=== PATIENT | male | born 1930 | race Caucasian/White ===

== ENCOUNTER 2016-07-23 22:41 | Inpatient (IN) | payer OTHER ==
[~2016-07-23] VITALS: Ht 188 cm; Wt 76.7 kg
[~2016-07-23 22:41] MED LIST: AMOX-CLAV 875-1 EACH PO; APA PO; AUGMENTIN 875-1 EACH PO; CARAFATE 1GM1000 MG PO; CIPRO 500MG TA500 MG PO; DOCUSATE SODIU100 MG PO; DULCOLAX10 MG PR; GLIPIZIDE10 MG PO; HYDROCODONE PO; LEADER MELATONIN5 MG PO; LISINOPRIL10 MG PO; LYRICA150 MG PO; METFORMIN HCL500 M3 PO; MIRALAX17 GM PO; PERCOCET 500 MG1 TAB PO; PROTONIX 40MG T40 MG PO; PROTONIX40 MG PO; SENNA CON/DOCUS1 TAB PO; TRAMADOL HCL50 M1 PO; TRIAMCINOLONE A15 G3 TOP; TYLENOL EXTRA500 M2 PO; TYLENOL325 M1 PO; TYLENOL500 MG PO; ULTRAM(MONOGRAP50 MG PO; VICODIN7.5-300 PO; VITAB121000 PO; VITAMIN D31000 UNI2 PO; [UNRECOGNIZED DRUG - OTHER] PO
--- NOTE | 2016-07-23 22:43 | ED AMS/SEIZURE/WEAK/DIZZY ---
History of Present Illness General Chief Complaint: Dizziness Stated Complaint: BIBA FOR WEAKNESS AND DIZZINESS Source: patient, old records, EMS Exam Limitations: clinical condition Vital Signs & Intake/Output Vital Signs & Intake/Output Vital Signs Date Time Temp Pulse Resp B/P B/P Pulse O2 O2 Flow FiO2 Mean Ox Delivery Rate 07/24 1134 97.5 67 17 138/64 98 Room Air 07/24 0632 96.2 60 16 151/71 98 Room Air 07/24 0112 96.7 74 20 170/77 98 Room Air 07/24 0111 Room Air 07/23 2250 87 16 146/74 96 Room Air Room Air Allergies Coded Allergies: NO KNOWN ALLERGIES (10/27/14) Reconcile Medications Cyanocobalamin (Vitamin B-12) 1,000 MCG TABLET 1 TAB PO DAILY SUPPLEMENT ( Reported) Metformin HCl 500 MG TABLET 1 TAB PO BID DM (Reported) Pantoprazole Sodium 40 MG TABLET.DR 1 TAB PO BID GI (Reported) Tramadol HCl 50 MG TABLET 1 TAB PO Q6P PRN PAIN (Reported) Triage Nurses Notes Reviewed? yes Onset: Gradual Duration: hour(s): Timing: recent history Injury Environment: home Severity: mild, moderate Modifying Factors: Improves With: rest. Associated Symptoms: weakness HPI: 86 yo gentleman, h/o cva, from home presents with weakness and dizziness since 3-4 pm this evening. He also notes increased fatigue, mild bilateral lower extremity discomfort, pain in both shoulders. His dizziness is not worse with head movement. He had no focal weakness, no dysarthria, no dysphagia. He states he has had a normal oral intake. (KOBE SMITH,PONCHO Pizano) Past History Travel History Traveled to [place] past 21 day No Medical History Any Pertinent Medical History? 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 No (KOBE SMITH,PONCHO Pizano) Review of Systems Review of Systems Constitutional: Reports: no symptoms. EENTM: Reports: no symptoms. Respiratory: Reports: no symptoms. Cardiovascular: Reports: no symptoms. GI: Reports: no symptoms. Genitourinary: Reports: no symptoms. Musculoskeletal: Reports: no symptoms. Skin: Reports: no symptoms. Neurological/Psychological: Reports: no symptoms. Hematologic/Endocrine: Reports: no symptoms. Immunologic/Allergic: Reports: no symptoms. All Other Systems: Reviewed and Negative (KOBE SMITH,PONCHO Pizano) Physical Exam Physical Exam General Appearance: well developed/nourished, no apparent distress Head: atraumatic, normal appearance Eyes: Bilateral: normal appearance, PERRL, EOMI. Ears, Nose, Throat: normal pharynx, normal ENT inspection Neck: normal inspection, supple, full range of motion Respiratory: normal breath sounds, chest non-tender, no respiratory distress, quiet respiration, lungs clear Cardiovascular: regular rate/rhythm Gastrointestinal: normal bowel sounds, soft, non-tender Back: normal inspection Extremities: normal range of motion Neurologic/Psych: no motor/sensory deficits, awake, alert, oriented x 3 Skin: intact, normal color, warm/dry Core Measures ACS in differential dx? No CVA/TIA Diagnosis: No Severe Sepsis Present: No Septic Shock Present: No (KOBE SMITH,PONCHO Pizano) Progress Differential Diagnosis: cva, tia, dehydration, uti, vs other. Plan of Care: Orders Procedure Date/time Status CBC WITHOUT DIFFERENTIAL 07/25 0600 Active Consistent Carbohydrate 3 07/24 D Active Regular Diet 07/24 B Complete Vital Signs 07/24 1140 Active Teach/Educate 07/24 1140 Active Pain Treatment and Response 07/24 1140 Active Nutritional Intake, Monitor 07/24 1140 Active Isolation 07/24 1140 Active Intake & Output 07/24 1140 Active Patient Care Conference 07/24 1140 Active Activity/Ambulation 07/24 1140 Active PT Evaluate & Treat 07/24 1123 Active FingerStick- Glucose 07/24 1123 Active CULTURE,URINE 07/24 1123 Active Pathway - chart 07/24 1014 Active House Staff 07/24 1014 Active Patient Data 07/24 1014 Active Code Status 07/24 1014 Active Patient Data 05/06 0937 Active OXYGEN SETUP (GEN) 07/25 923 Active Saline Lock 07/25 923 Active Admit to inpatient 07/25 923 Active Vital Signs 07/25 923 Active Activity/Ambulation 07/25 923 Active BLOOD CULTURE 07/25 923 Active Code Status 07/25 923 Complete Intake & Output 07/24 0635 Active PT Evaluate & Treat 07/24 257 Active CASE MANAGEMENT CONSULT 07/24 025 Active Straight Cath 07/24 012 Active Theraputic Activities 15 Min 07/24 UNK Complete PT EVAL MOD COMPLEX 30 MIN 07/24 UNK Complete VTE Mechanical Prophylaxis 07/24 UNK Active URINALYSIS 07/23 224 Complete TROPONIN LEVEL 07/23 224 Complete PARTIAL THROMBOPLASTIN TIME 07/23 224 Complete PROTHROMBIN TIME 07/23 2244 Complete COMPREHENSIVE METABOLIC PANEL 07/23 2244 Complete CBC WITHOUT DIFFERENTIAL 07/23 224 Complete B-TYPE NATRIURETIC PEP (BNP) 07/23 224 Complete EKG 07/23 2244 Active Current Medications Sig/Alverto Start time Last Medication Dose Stop Time Status Admin Azithromycin 500 MG DAILY 07/25 1000 AC (Zithromax) Sodium Chloride 250 ML (Normal Saline 0.9%) Ceftriaxone Sodium 1,000 MG DAILY 07/25 1000 AC (Rocephin) Insulin Aspart 0 TIDAC 07/24 1200 AC (NovoLOG) Sodium Chloride 1,000 ML Q13H 07/24 1130 AC 07/24 (Normal Saline 0.9%) 07/25 0029 1130 Tramadol HCl 50 MG Q6P PRN 07/24 1030 UNVr (Ultram) Omeprazole 40 MG DAILY AC 07/24 1021 AC 07/24 (Prilosec) 1130 Cyanocobalamin 1,000 MCG DAILY 07/24 1019 AC 07/24 (Vitamin B12) 1130 Acetaminophen 325 MG Q6 PRN 07/24 1015 AC (Tylenol) Oxycodone HCl 10 MG Q6 PRN 07/24 1015 AC (Roxicodone) Laboratory Tests 07/24/16 0128: Urinalysis MOD H, Urine Color YEL, Urine Clarity CLDY H, Urine pH 8.5 H, Ur Specific [place] 1.010, Urine Protein 30 H, Urine Ketones NEG, Urine Nitrite NEG, Urine Bilirubin NEG, Urine Urobilinogen 1.0, Ur Leukocyte Esterase LARGE H , Ur Microscopic SEDIMENT EXAMINED, Urine RBC 3-5, Urine WBC 3-5 H, Urine Crystals 1+ TRIP PHOS H, Urine Bacteria MANY H, Urine Hemoglobin SMALL H, Urine Glucose NEG 07/23/16 2330: Anion Gap 9, Estimated GFR > 60, BUN/Creatinine Ratio 28.0 H, Glucose 144 H, Calcium 8.9, Total Bilirubin 0.5, AST 20, ALT 34, Alkaline Phosphatase 86, Troponin I < 0.01, Uqq-V-Luulbjzewos Pept 768 H, Total Protein 6.5, Albumin 3.5 , Globulin 3.0, Albumin/Globulin Ratio 1.2, PT 11.9, INR 1.13, APTT 40 H, CBC w Diff NO MAN DIFF REQ, RBC 3.70 L, MCV 95.8 H, MCH 32.2 H, RDW 12.9, MPV 8.7, Gran % 80.6 H, Lymphocytes % 13.2 L, Monocytes % 5.1, Eosinophils % 0.5, Basophils % 0.6, Absolute Granulocytes 8.2 H, Absolute Lymphocytes 1.3, Absolute Monocytes 0.5, Absolute Eosinophils 0, Absolute Basophils 0.1, PUBS MCHC 33.6 Microbiology 07/24 1123 URINE ROUT: Urine Culture - ORD 07/24 1040 BLOOD: Blood Culture - RECD 07/24 1030 BLOOD: Blood Culture - RECD Diagnostic Imaging: Viewed by Me: Radiology Read, CT Scan. Discussed w/RAD: Radiology Read, CT Scan. Radiology Impression: HEAD CT... NO ACUTE DISEASE CXR Impression: "MINIMAL LEFT BASILAR OPACITY FAVORING ATELECTASIS" Initial ED EKG: normal axis, normal intervals, normal p-waves, normal QRS complex, normal sinus rhythm Hand-Off Endorsed To: KENDAL BARGER MD Endorsed Time: 0700 Pending: consult Comments: PATIENT: ERIN MALDONADO PRESENT AGE: 86 PATIENT ACCOUNT NO: [id number] : 32 LOCATION: [facility] ORDERING PHYSICIAN: PONCHO BULLOCK MD SERVICE DATE: 07/23/16 EXAM TYPE: RAD - XRY-PORTABLE CHEST XRAY EXAMINATION: XR PORTABLE CHEST CLINICAL INFORMATION: Cough COMPARISON: 03/11/2016 TECHNIQUE: Portable frontal view of the chest was obtained. FINDINGS: Lung volumes are symmetric. There is minimal opacity at the left base favoring atelectasis. No additional consolidation is seen. No evidence of pneumothorax, significant pleural effusion, or pulmonary edema. Cardiac size is within normal limits. Calcification is present at the aortic arch. No acute osseous findings are seen. IMPRESSION: Minimal left basilar opacity favoring atelectasis. DICTATED BY: RUFUS BENAVIDES MD DATE/TIME DICTATED:07/23/162319 BLENDING MACHINE OPERATOR:CARMEN DATE/TIME TRANSCRIBED:07/23/162319 CONFIDENTIAL, DO NOT COPY WITHOUT APPROPRIATE AUTHORIZATION. <Electronically signed in Other Vendor System> SIGNED BY: RUFUS BENAVIDES MD 07/23/162323 PATIENT: ERIN MALDONADO PRESENT AGE: 86 PATIENT ACCOUNT NO: [id number] : 32 LOCATION: [facility] ORDERING PHYSICIAN: PONCHO BULLOCK MD SERVICE DATE: 07/23/16 EXAM TYPE: CAT - CT HEAD WO IV CONTRAST EXAMINATION: CT HEAD WITHOUT CONTRAST CLINICAL INFORMATION: Dizziness. COMPARISON: CT head 07/29/2015 TECHNIQUE: Contiguous axial imaging was performed from the skull base to vertex without intravenous administration of contrast. DLP: 1056.68 mGy-cm FINDINGS: There is no evidence of acute intracranial hemorrhage or territorial infarction. No abnormal mass effect or midline shift is seen. Schmidt to white matter differentiation is well preserved. No extra-axial fluid collections are identified. There is atrophy with prominence of the ventricles and the sulci and hypodensity of the periventricular white matter due to chronic small vessel ischemic disease. There is vascular calcifications of the internal carotid arteries bilaterally. The osseous structures and soft tissues are normal. The mastoid air cells and visualized portions of the paranasal sinuses are well aerated. IMPRESSION: No acute intracranial pathology. DICTATED BY: LASHA ADORNO MD DATE/TIME DICTATED:07/23/162316 BLENDING MACHINE OPERATOR:CARMEN DATE/TIME TRANSCRIBED:07/23/162316 CONFIDENTIAL, DO NOT COPY WITHOUT APPROPRIATE AUTHORIZATION. <Electronically signed in Other Vendor System> SIGNED BY: LASHA ADORNO MD 07/23/162321 (KOBE SMITH,PONCHO Pizano) Comments: Poor mobility requiring assist of 2 with development of decubitus ulcers. (CHARBEL SMITH,KENDAL) Departure Departure Disposition: STILL A PATIENT Condition: Stable Referrals: HARLEY SMITH,YANET Serna (PCP/Family) Departure Forms: Customer Survey General Discharge Information Comments 07/24/16, 2:50am... discussed with dr. smart... pt to be held until the AM for PT eval and case management. (KOBE SMITH,PONCHO Pizano) Departure Clinical Impression Primary Impression: Pneumonia Qualifiers: Pneumonia type: due to unspecified organism Laterality: unspecified laterality Lung location: unspecified part of lung Qualified Code: J18.9 - Pneumonia, unspecified organism Secondary Impressions: Dizziness UTI (urinary tract infection) Qualifiers: Urinary tract infection type: site unspecified Hematuria presence: without hematuria Qualified Code: N39.0 - Urinary tract infection, site not specified Admission Note Spoke With: CHRISTEN GATES MD Documentation of Exam: Documentation of any treatments & extenuating circumstances including Concerns Regarding Discharge (functional status, medication knowledge or non-compliance, living conditions, etc.) that warrant an admission rather than observation: IV antibiotics physical therapy wound evaluation medication adjustment continuing care discharge planning (KENDAL BARGER MD)
--- NOTE | 2016-07-23 22:45 | NUR ---
PT BIBA FROM HOME FOR INCREASING WEAKNESS AND BILATERAL SHOUDLER AND LEG PAIN. PT HAS HAD RECENT UTI'S. PT DENIES FEVERS. DENIES ABD PAIN. HE IS ALERT AND ORIENTED BUT SLOW TO RESPOND. AWAITING FAMILY TO ARRIVE FOR BASELINE MENTAL STATUS
--- NOTE | 2016-07-23 22:51 | NUR ---
HIGINIO MOORE MD
[2016-07-23] MEDS ORDERED: PANTOPRAZOLE SO40 M1 PO (22:56)
[2016-07-23] MEDS ORDERED: TRAMADOL HCL50 M1 PO (22:57)
[2016-07-23] MEDS ORDERED: VITAMIN B-121000 MC3 PO (22:58)
--- NOTE | 2016-07-23 22:59 | NUR ---
PATIENT TRANS TO CT SCAN VIA STRETCHER
--- NOTE | 2016-07-23 23:22 | CT SCAN REPORT ---
EXAMINATION: CT HEAD WITHOUT CONTRAST CLINICAL INFORMATION: Dizziness. COMPARISON: CT head 07/29/2015 TECHNIQUE: Contiguous axial imaging was performed from the skull base to vertex without intravenous administration of contrast. DLP: 1056.68 mGy-cm FINDINGS: There is no evidence of acute intracranial hemorrhage or territorial infarction. No abnormal mass effect or midline shift is seen. Schmidt to white matter differentiation is well preserved. No extra-axial fluid collections are identified. There is atrophy with prominence of the ventricles and the sulci and hypodensity of the periventricular white matter due to chronic small vessel ischemic disease. There is vascular calcifications of the internal carotid arteries bilaterally. The osseous structures and soft tissues are normal. The mastoid air cells and visualized portions of the paranasal sinuses are well aerated. IMPRESSION: No acute intracranial pathology.
--- NOTE | 2016-07-23 23:24 | RADIOLOGY REPORT ---
EXAMINATION: XR PORTABLE CHEST CLINICAL INFORMATION: Cough COMPARISON: 03/11/2016 TECHNIQUE: Portable frontal view of the chest was obtained. FINDINGS: Lung volumes are symmetric. There is minimal opacity at the left base favoring atelectasis. No additional consolidation is seen. No evidence of pneumothorax, significant pleural effusion, or pulmonary edema. Cardiac size is within normal limits. Calcification is present at the aortic arch. No acute osseous findings are seen. IMPRESSION: Minimal left basilar opacity favoring atelectasis.
--- NOTE | 2016-07-23 23:30 | NUR ---
ASSUMED PRIMARY CARE OF PT. PT CHANGED INTO GOWN. PT OFFERS NO COMPLAINTS OTHER THAN "I AM TOO WEAK TO WALK." AWAKE/ALERT WITH EASY WOB.
--- NOTE | 2016-07-23 23:40 | NUR ---
RETURNED FROM CT IV MED LOCK EST RIGHT AC 20 B/W OBTAINED SENT EKG BEING PREFORMED
[2016-07-23 23:47] LABS: ABSOLUTE BASOPHIL COUNT 0.1 /CUMM (0.0-0.2); ABSOLUTE EOSINOPHIL COUNT 0 /CUMM (0.0-0.7); ABSOLUTE GRANULOCYTE CT 8.2 /CUMM (1.4-6.5); ABSOLUTE LYMPH COUNT 1.3 /CUMM (1.2-3.4); ABSOLUTE MONOCYTE COUNT 0.5 /CUMM (0.10-0.60); BASOPHIL % 0.6 % (0.0-2.0); EOSINOPHIL % 0.5 % (0-5); GRANULOCYTE % 80.6 % (42.2-75.2); HEMATOCRIT 35.4 % (42-52); MEAN CORPUSCULAR HGB 32.2 PG (27.0-31.0); MEAN CORPUSCULAR HGB CONC 33.6 G/DL (33.0-37.0); MEAN CORPUSCULAR VOLUME 95.8 FL (80.0-94.0); MEAN PLATELET VOLUME 8.7 FL (7.4-10.4); PLATELET COUNT 171 /CUMM (130-400); RBC DISTRIBUTION WIDTH 12.9 % (11.5-14.5); WHITE BLOOD CELL COUNT 10.2 /CUMM (4.8-10.8)
--- NOTE | 2016-07-23 23:50 | NUR ---
EKG DONE AND SHOWN TO DR. BULLOCK.
[2016-07-23 23:52] LABS: PT 11.9 SEC (9.4-12.5); PTT 40 SEC (25-37)
--- NOTE | 2016-07-24 01:10 | NUR ---
PT COMPLAINING OF 7/10 BACK PAIN X2 HOURS. REQUESTING SOMETHING FOR PAIN. DENIES DIZZINESS AT THIS TIME. ALSO REPORTS INTERMITTENT BILATERAL LOWER EXT PAIN AND BILATERAL SHOULDER PAIN.
--- NOTE | 2016-07-24 01:31 | NUR ---
URINE TRIO SENT
--- NOTE | 2016-07-24 02:18 | NUR ---
PT REPORTS MINIMAL RELIEF FROM TYLENOL. REQUESTING TRAMADOL.
--- NOTE | 2016-07-24 02:34 | NUR ---
UPDATED POC: PT TO BE EVAL'D BY PT IN AM
--- NOTE | 2016-07-24 03:14 | NUR ---
RESTING COMFROTABLY WITH EYES CLOSED, EVEN NONLABORED RESPIRATIONS NOTED
--- NOTE | 2016-07-24 04:09 | NUR ---
cont to sleep soundly with easy wob
--- NOTE | 2016-07-24 06:32 | NUR ---
AWAKENED FOR VITAL SIGNS. VSS. REPORTS 6/10 BACK PAIN. BREAKFAST TRAY ORDERED. PT REQUESTING PANCAKES WITH OATMEAL AND BLUEBERRIES WITH RAISINS.
--- NOTE | 2016-07-24 07:13 | NUR ---
RECEIVED REPORT ON PT AND NOTED BEEN GIVEN INCONTINENT AMD MOTED TO HAVE VERY DRY SPINE WHICH IS FLAKY AND ALSO 2 SMALL OPEN SPOTS HIS BILT BUTTOCKS. PT DENIES ANY COMPLAINTS AND MEAL TRAY OFFERED
--- NOTE | 2016-07-24 07:43 | NUR ---
PT AT BEDSIDE TO EVAL PT
--- NOTE | 2016-07-24 07:50 | NUR ---
PT EVALUATED BY GER FROM [facility] AND SHE ADVISED THAT PT IS AT BASELINE AND WILL NOT REQUIRE SKILLED PHYSICAL THERAPY AT THIS TIME SECONDARY TO BASELINE STATUS. MD BARGER UPDATED OF INFORMATION
--- NOTE | 2016-07-24 08:50 | NUR ---
CASE MANAGEMENT PAISHANNAN
--- NOTE | 2016-07-24 10:41 | NUR ---
BED ASSIGGNMENT 230-02
--- NOTE | 2016-07-24 10:49 | NUR ---
HOUSE STAFF EVALUATED PT AND IV ROCEPHIN STARTED
--- NOTE | 2016-07-24 11:07 | History & Physical ---
JACKIE PASTOR 07/24/16 1050: General Information and HPI MD Statement: I have seen and personally examined ERIN MALDONADO and documented this H&P. The patient is a 86 year old M who presented with a patient stated chief complaint of [WEAKNESS AND BODYACHE]. Source of Information: patient, old records Exam Limitations: no limitations History of Present Illness: Patient is an 86-year-old male with past medical history of CVA in 2000, dementia, spinal stenosis, borderline DM, hx of upper GI bleed secondary to esophageal ulceration (February 2014), UTI, constipation, who came to the ED due to worsening weakness and fatigue since 2 days ago. Patient states that for the past 2 days he has been feeling very weak and lethargic. He has been having a lot of pain in his back and his limbs. Reports having dysuria, but no urgency or increased frequency. Admits to having foul- smelling urine. Denied any fevers, chills, decreased appetite, chest pain, shortness of breath, nausea, vomiting, hematuria, BRBPR, diarrhea or constipation. No recent sick contacts, no recent travel. He was admitted with similar complaints in February 2016 and was found to have UTI growing Escherichia coli and was treated with ceftriaxone. At baseline, patient lives with and has a nursing service director 5 hours per day for 7 days. He ambulates with a walker however has very limited ADLs and IADLs. In the ED, vitals and labs were nonsignificant. UA showed moderately cloudy urine, leukocyte esterase positive and nitrite negative with many bacteria and 3-5 WBC. Some triphosphate crystals were seen. a chest x-ray done showed left basilar opacity favoring atelectasis. He received 1 L normal saline and IV ceftriaxone and azithromycin in the ED. Allergies/Medications Allergies: Coded Allergies: NO KNOWN ALLERGIES (10/27/14) Home Med list Cyanocobalamin (Vitamin B-12) 1,000 MCG TABLET 1 TAB PO DAILY SUPPLEMENT ( Reported) Metformin HCl 500 MG TABLET 1 TAB PO BID DM (Reported) Pantoprazole Sodium 40 MG TABLET.DR 1 TAB PO BID GI (Reported) Tramadol HCl 50 MG TABLET 1 TAB PO Q6P PRN PAIN (Reported) Past History Travel History Traveled to [place] past 21 day No Medical History Neurological: CVA, dementia EENT: NONE Cardiovascular: NONE Respiratory: NONE Gastrointestinal: BLEEDING ULCER Hepatic: NONE Renal: NONE Musculoskeletal: GOUT SPINAL STENOSIS OSTEOARTH, FX HIPS Psychiatric: NONE Endocrine: BORDERLINE DM Blood Disorders: NONE Cancer(s): NONE OFFICE MACHINE TECHNICIAN/Reproductive: NONE History of MRSA: No History of VRE: No History of CDIFF: No Pneumonia Vaccine: 01/07/11 Surgical History Surgical History: non-contributory, N Past Family/Social History Family History Relations & Conditions if any MOTHER Relation not specified for: FH ischemic heart disease Psychosocial History Who Do You Live With? spouse Services at Home: Home Health Aide Primary Language: Vietnamese Functional Ability Ambulation: non-ambulatory, Patient previously walked with walker, but has been unable to ambulate for past 3 weeks due to foot problems. Review of Systems Review of Systems Constitutional: Reports: malaise, weakness. EENTM: Reports: no symptoms. Cardiovascular: Reports: no symptoms. Respiratory: Reports: no symptoms. GI: Reports: no symptoms. Genitourinary: Reports: no symptoms. Musculoskeletal: Reports: back pain, joint pain, muscle pain. Skin: Reports: no symptoms. Neurological/Psychological: Reports: no symptoms. Exam & Diagnostic Data Last 24 Hrs of Vital Signs/I&O Vital Signs Date Time Temp Pulse Resp B/P B/P Pulse O2 O2 Flow FiO2 Mean Ox Delivery Rate 07/24 0632 96.2 60 16 151/71 98 Room Air 07/24 0112 96.7 74 20 170/77 98 Room Air 07/24 0111 Room Air 07/23 2250 87 16 146/74 96 Room Air Room Air Intake & Output 07/24 1600 / 0800 05/ 0000 Intake Total 500 Output Total Balance 500 Intake, IV 500 Physical Exam General Appearance Alert, No Acute Distress, oriented X 2 Skin No Rashes, No Breakdown, No Significant Lesion Skin Temp/Moisture Exam: Warm/Dry Sepsis Skin Exam (color): Normal for Ethnicity HEENT Atraumatic, PERRLA, EOMI Neck Supple, No JVD Lymphatic Cervical nl Cardiovascular Regular Rate, Normal S1, Normal S2, No Murmurs Lungs decreased breath sounds on the right base Abdomen Normal Bowel Sounds, Soft, No Tenderness Neurological decreased power 3/5 on bilateral lower extremities. 5/5 in the upper extremities Extremities No Clubbing, No Cyanosis, No Edema, Normal Pulses Last 24 Hrs of Labs/Jerel: Laboratory Tests 07/24/16 0128: Urinalysis MOD H, Urine Color YEL, Urine Clarity CLDY H, Urine pH 8.5 H, Ur Specific [place] 1.010, Urine Protein 30 H, Urine Ketones NEG, Urine Nitrite NEG, Urine Bilirubin NEG, Urine Urobilinogen 1.0, Ur Leukocyte Esterase LARGE H , Ur Microscopic SEDIMENT EXAMINED, Urine RBC 3-5, Urine WBC 3-5 H, Urine Crystals 1+ TRIP PHOS H, Urine Bacteria MANY H, Urine Hemoglobin SMALL H, Urine Glucose NEG 07/23/16 2330: Anion Gap 9, Estimated GFR > 60, BUN/Creatinine Ratio 28.0 H, Glucose 144 H, Calcium 8.9, Total Bilirubin 0.5, AST 20, ALT 34, Alkaline Phosphatase 86, Troponin I < 0.01, Qqw-E-Eaifpsnzrzp Pept 768 H, Total Protein 6.5, Albumin 3.5 , Globulin 3.0, Albumin/Globulin Ratio 1.2, PT 11.9, INR 1.13, APTT 40 H, CBC w Diff NO MAN DIFF REQ, RBC 3.70 L, MCV 95.8 H, MCH 32.2 H, RDW 12.9, MPV 8.7, Gran % 80.6 H, Lymphocytes % 13.2 L, Monocytes % 5.1, Eosinophils % 0.5, Basophils % 0.6, Absolute Granulocytes 8.2 H, Absolute Lymphocytes 1.3, Absolute Monocytes 0.5, Absolute Eosinophils 0, Absolute Basophils 0.1, PUBS MCHC 33.6 Microbiology 07/24 1040 BLOOD: Blood Culture - RECD 07/24 1030 BLOOD: Blood Culture - RECD Assessment/Plan Assessment: Patient is an 86-year-old male with past medical history of CVA in 2000, dementia, spinal stenosis, borderline DM, hx of upper GI bleed secondary to esophageal ulceration (February 2014), UTI, constipation, who came to the ED due to worsening weakness and fatigue since 2 days ago. In the ED, vitals showed elevated BP and labs were nonsignificant. UA showed moderately cloudy urine, leukocyte esterase positive and nitrite negative with many bacteria and 3-5 WBC. Some triphosphate crystals were seen. Chest x-ray done showed left basilar opacity favoring atelectasis. CT head was negative for any acute changes. He received 1 L normal saline and IV ceftriaxone and azithromycin in the ED. Assessment and plan: 1.Generalized fatigue and deconditioning likely secondary to an infectious process? UTI vs pneumonia. No fever, leukocytosis. Does report dysuria. Chest x-ray showed left basilar opacity. UA dirty with many bacteria. -Admit to [facility] -Patient received 1 L of fluid in the ED. Continue gentle hydration with IV normal saline at 75 mL an hourx 1 BAG -Continue IV ceftriaxone and azithromycin for now. He received 1 dose in the ED. -Patient has grown Escherichia coli and providencia in the past sensitive to ceftriaxone. -Follow-up blood and urine cultures -Check urine strep and Legionella -PT consult in a.m. Patient with likely require STR placement. 2. Diabetes mellitus: Hold the metformin -3 times a day Accu-Cheks - NovoLog sliding scale -Holding metformin -Diabetic diet 3. 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 Back pain: Chronic -We'll continue Tylenol for mild pain and tramadol for moderate pain -PT consult for regaining strength. Diabetic diet Full code DVT prophylaxis: Alps due to history of GI bleed Mild/moderate pain pathway As Ranked By This Provider Problem List: 1. Weakness 2. UTI (urinary tract infection) Qualifiers Urinary tract infection type: site unspecified Hematuria presence: without hematuria Qualified Code: N39.0 - Urinary tract infection, site not specified Core Measures/Miscellaneous Acute Coronary Syndrome ACS Diagnosis: No Cerebrovascular Accident CVA/TIA Diagnosis: No Congestive Heart Failure CHF Diagnosis: No Venous Thromboembolism VTE Risk Factors: Age > 40 No [facility] VTE prophylaxis d/t: No contraindications No VTE Pharm Prophylaxis d/t: Medical contraindication (previous gi bleed) VTE Diagnosis: No VTE Type: NONE VTE Confirmed by (Test): NONE Severe Sepsis Severe Sepsis Present: No Septic Shock Septic Shock Present: No Miscellaneous Documentation Attending Case Discussed With: CHRISTEN GATES MD Primary Care Physician: YANET SOUZA MD Patient sees these Specialists none Level of Patient Care: General Medicine CHRISTEN GATES MD 07/24/16 1842: Attending Review Statement Attending Statement Attending MD Statement: examined this patient, discuss w/resident/PA/GRIND OPERATOR, agreed w/resident/PA/GRIND OPERATOR, reviewed EMR data (avail) Attending Assessment/Plan: 86M PMH CVA in 2000, dementia, spinal stenosis, borderline DM, hx of upper GI bleed secondary to esophageal ulceration (February 2014) admitted with generalized weakness, diffuse myalgia, unable to care for self, evidence of UTI with mild dysuria. CXR shows possible infiltrate, no symptoms of pneumonia at this time. Afebrile, hemodynamically stable, exam benign. Plan - Admit to general medicine - IV hydration- Ceftriaxone for presumed UTI - Follow cultures - Monitor electrolytes - Check TSH, B12, Vitamin D - PT eval - Continue home medications - DVT PPx
--- NOTE | 2016-07-24 11:22 | NUR ---
REPORT GIVEN TO NURSE
--- NOTE | 2016-07-24 11:29 | NUR ---
PT WILL LIKE TO FINISH MEAL BEFORE HE LEAVES FOR FLOOR MEDICATED ORDERED ALSO
--- NOTE | 2016-07-24 11:45 | NUR ---
PT ONLY ATE HALF OF COOKIE AND DID NOT LIKE FOOD NURSE CALLED TO INFORM AND UPDATE THAT NO INSULIN COVERAGE GIVEN
--- NOTE | 2016-07-24 12:20 | NUR ---
ERIN MALDONADO Nurse Note by: JM RAJPUT. I agree with the DRAMATIC AGENT findings/evaluation of this patient's condition. Entered by: JM RAJPUT. Date: 07/24/16 Time: 1222
[2016-07-24 12:45] VITALS: BP 104/50
--- NOTE | 2016-07-24 12:45 | NUR ---
ARRIVED TO FLOOR VIA STRETCHER FROM ED. A & F. COMES FROM HOME WHERE HE LIVES WITH AND HAS HOME HEALTH AID. AT BASELINE, PT IS MAINLY BED BOUND AND TRANSFERS TO CHAIR WITH ASSIST OF 1. OPEN AREA NOTED TO LEFT BUTTOCK. WCE ORDERED. SIZEWISE ORDERED. IVF INFUSING. C/O PAIN 08/28 TO BACK-TRAMADOL GIVEN ORDERED. ORIENTED TO CALL SYSTEM. WILL MONITOR.
[2016-07-24 15:19] VITALS: BP 104/52
--- NOTE | 2016-07-24 18:44 | Admission Certification ---
Admission Certification Certification Statement - As attending physician, I certify that at the time of - admission, based on clinical presentation, severity of - symptoms, need for further diagnostic testing and - therapeutic interventions, and risk of adverse outcomes - without in-hospital treatment, in my clinical assessment, - this patient requires an acute hospital stay for a minimum - of two nights or longer. I have also considered psychsocial - factors such as support system, advanced age, financial - issues, cognitive issues, and failed out-patient treatments, - past re-admission history, safety of patient, and lack of - compliance as applicable. Specific rationale supporting this admission is: Generalizsed weakness, diffuse myalgia, UTI, unable to care for self
[2016-07-24 22:30] VITALS: BP 110/68
[2016-07-25 06:30] VITALS: BP 124/66
--- NOTE | 2016-07-25 07:51 | PN- Housestaff ---
KAREEN PATEL 07/25/16 0751: Subjective Follow-up For: deconditioning weakness UTI Subjective: seen and examined patient. he is oriented to person only. Endorses difuse aches all over. Per nursing, he is a maximum assist. Review of Systems Constitutional: Denies: chills, diaphoresis, fever, malaise, weakness, unexplained weight loss. Cardiovascular: Denies: chest pain, edema, orthopena, palpitations, peripheral edema, syncope. Respiratory: Denies: cough, hemoptysis, orthopnea, short of breath, sputum production, stridor, wheezing. Objective Last 24 Hrs of Vital Signs/I&O Vital Signs Date Time Temp Pulse Resp B/P B/P Pulse O2 O2 Flow FiO2 Mean Ox Delivery Rate 07/25 0630 98.4 58 20 124/66 93 Room Air 07/25 0000 Room Air 07/24 2230 98.6 55 20 110/68 96 Room Air / 1600 Room Air 07/24 1519 98.8 58 20 104/52 98 / 1245 97.6 56 17 104/50 100 Room Air 07/24 1134 97.5 67 17 138/64 98 Room Air Intake & Output 07/25 1600 07/25 0800 05/ 0000 Intake Total 500 1200 Output Total Balance 500 1200 Intake, IV 300 600 Intake, Oral 200 600 Number 0 2 Bowel Movements Physical Exam General Appearance: No Acute Distress, cachetic Cardiovascular: Normal S1, Normal S2 Lungs: Normal Air Movement Abdomen: Soft, No Tenderness Extremities: No Edema Current Medications: Current Medications Sig/Alverto Start time Last Medication Dose Route Stop Time Status Admin Acetaminophen 325 MG Q6 PRN 07/24 1015 AC PO Azithromycin 500 MG DAILY 07/25 1000 AC 07/25 Sodium Chloride 250 ML IV 0845 Ceftriaxone Sodium 1,000 MG DAILY 07/25 1000 AC 07/25 IV 0844 Cyanocobalamin 1,000 MCG DAILY 07/24 1019 AC 07/25 PO 0844 Enoxaparin Sodium 0 .STK-MED ONE 07/24 1137 DC SC Insulin Aspart 0 TIDAC 07/24 1200 AC SC Omeprazole 40 MG DAILY AC 07/24 1021 AC 07/25 PO 0542 Oxycodone HCl 10 MG Q6 PRN 07/24 1015 AC PO Sodium Chloride 1,000 ML Q13H 07/24 1130 DC 07/24 IV 05/07 0029 1130 Tramadol HCl 0 .STK-MED ONE 07/24 1137 DC PO Tramadol HCl 50 MG Q6P PRN 07/24 1030 AC 07/24 PO 1905 Tramadol HCl 50 MG Q4P PRN 07/24 0245 DC 07/24 PO 0246 Last 24 Hrs of Lab/Jerel Results Last 24 Hrs of Labs/Mics: Laboratory Tests 07/25/16 0737: Anion Gap 7, Estimated GFR > 60, BUN/Creatinine Ratio 22.2, Vitamin B12 931, 25- OH Vitamin D Total 36.2, TSH 3.680, CBC w Diff NO MAN DIFF REQ, RBC 3.18 L, MCV 95.9 H, MCH 32.7 H, RDW 12.8, MPV 9.4, Gran % 63.7, Lymphocytes % 28.5, Monocytes % 4.9, Eosinophils % 2.5, Basophils % 0.4, Absolute Granulocytes 4.9, Absolute Lymphocytes 2.2, Absolute Monocytes 0.4, Absolute Eosinophils 0.2, Absolute Basophils 0, PUBS MCHC 34.0 Assessment/Plan Assessment: 86-year-old gentleman with past medical history of CVA in 2000, dementia, spinal stenosis, borderline DM, hx of upper GI bleed secondary to esophageal ulceration (February 2014), UTI, constipation, who came to the ED due to worsening weakness and fatigue since 2 days ago. UA showed moderately cloudy urine, leukocyte esterase positive and nitrite negative with many bacteria and 3-5 WBC. Some triphosphate crystals were seen. chest x-ray done showed left basilar opacity favoring atelectasis. Received 1 L normal saline and IV ceftriaxone and azithromycin in the ED. No acute intracranial pathology on CT head. prob List UTI weakness/deconditioning. plan afebrile, normal white count. continue on gen med, vitals per protocol encourage PO intake, avoid delirium triggers neg legionalla urine antigen, blood cultures pending continue IV ceftriaxone day 2 for UTI pending cultures, recomend dc azithro as Chest is CTA and no sx and symptoms of U/LRI monitor fingersticks dvt ppx with lovenox full code Problem List: 1. UTI (urinary tract infection) 2. Weakness Pain Ratin Pain Location: diffuse Pain Goal: Pain 4 or less Pain Plan: current regimen Tomorrow's Labs & Rationales: none required CHRISTEN GATES MD 07/25/16 1339: Attending MD Review Statement Attending Statement Attending MD Statement: examined this patient, discuss w/resident/PA/FLOOR SERVICE WORKER SPRING, agreed w/resident/PA/FLOOR SERVICE WORKER SPRING, reviewed EMR data (avail) Attending Assessment/Plan: 86M PMH CVA in 2000, dementia, spinal stenosis, borderline DM, hx of upper GI bleed secondary to esophageal ulceration (February 2014) admitted with generalized weakness, diffuse myalgia, unable to care for self, evidence of UTI with mild dysuria. CXR shows possible infiltrate, no symptoms of pneumonia at this time. Afebrile, hemodynamically stable, exam benign. Plan - Admit to general medicine - IV hydration- Ceftriaxone for presumed UTI - Follow cultures - Monitor electrolytes - Check TSH, B12, Vitamin D - PT eval - Continue home medications - DVT PPx
[2016-07-25 09:24] LABS: ABSOLUTE BASOPHIL COUNT 0 /CUMM (0.0-0.2); ABSOLUTE EOSINOPHIL COUNT 0.2 /CUMM (0.0-0.7); ABSOLUTE GRANULOCYTE CT 4.9 /CUMM (1.4-6.5); ABSOLUTE LYMPH COUNT 2.2 /CUMM (1.2-3.4); ABSOLUTE MONOCYTE COUNT 0.4 /CUMM (0.10-0.60); BASOPHIL % 0.4 % (0.0-2.0); EOSINOPHIL % 2.5 % (0-5); GRANULOCYTE % 63.7 % (42.2-75.2); HEMATOCRIT 30.5 % (42-52); MEAN CORPUSCULAR HGB 32.7 PG (27.0-31.0); MEAN CORPUSCULAR VOLUME 95.9 FL (80.0-94.0); MEAN PLATELET VOLUME 9.4 FL (7.4-10.4); PLATELET COUNT 140 /CUMM (130-400); RBC DISTRIBUTION WIDTH 12.8 % (11.5-14.5); RED BLOOD CELL CT 3.18 /CUMM (4.70-6.10); WHITE BLOOD CELL COUNT 7.7 /CUMM (4.8-10.8)
[2016-07-25 14:56] VITALS: BP 100/56
--- NOTE | 2016-07-25 16:00 | NUR ---
PT HAS BASELINE BRADYCARDIA. HEART RATE [address] VALLE. PT ASYMTOMATIC. WILL MONITOR.
[2016-07-25 22:33] VITALS: BP 120/54
--- NOTE | 2016-07-26 06:33 | PN- Housestaff ---
KAREEN PATEL 07/26/16 0633: Subjective Follow-up For: deconditioning weakness UTI Subjective: seen and examined, lying in bed in no distress. Review of Systems Constitutional: Denies: chills, diaphoresis, fever, malaise, weakness, unexplained weight loss. Cardiovascular: Denies: chest pain, edema, orthopena, palpitations, peripheral edema, syncope. Respiratory: Denies: cough, hemoptysis, orthopnea, short of breath, sputum production, stridor, wheezing. Objective Last 24 Hrs of Vital Signs/I&O Vital Signs Date Time Temp Pulse Resp B/P B/P Pulse O2 O2 Flow FiO2 Mean Ox Delivery Rate 07/26 0655 97.7 48 16 124/62 94 Room Air 07/25 2233 98.0 48 16 120/54 96 Room Air 07/25 1456 97.5 45 18 100/56 96 Intake & Output 07/26 0800 05/ 0000 05/ 1600 Intake Total 100 100 360 Output Total Balance 100 100 360 Intake, Oral 100 100 360 Number 1 Bowel Movements Physical Exam General Appearance: No Acute Distress Cardiovascular: Normal S1, Normal S2 Lungs: Normal Air Movement Extremities: No Edema Current Medications: Current Medications Sig/Alverto Start time Last Medication Dose Route Stop Time Status Admin Acetaminophen 325 MG Q6 PRN 07/24 1015 AC PO Azithromycin 500 MG DAILY 07/25 1000 DC 07/25 Sodium Chloride 250 ML IV 0845 Ceftriaxone Sodium 1,000 MG DAILY 07/25 1000 AC / IV 0844 Cyanocobalamin 1,000 MCG DAILY 07/24 1019 AC 07/25 PO 0844 Insulin Aspart 0 TIDAC 07/24 1200 AC SC Omeprazole 40 MG DAILY AC 07/24 1021 AC / PO 0552 Oxycodone HCl 10 MG Q6 PRN / 1015 AC 05/ PO 2049 Tramadol HCl 50 MG Q6P PRN / 1030 DC / PO 1905 Assessment/Plan Assessment: 86-year-old gentleman with past medical history of CVA in 2000, dementia, spinal stenosis, borderline DM, hx of upper GI bleed secondary to esophageal ulceration (February 2014), UTI, constipation, who came to the ED due to worsening weakness and fatigue since 2 days ago. UA showed moderately cloudy urine, leukocyte esterase positive and nitrite negative with many bacteria and 3-5 WBC. Some triphosphate crystals were seen. chest x-ray done showed left basilar opacity favoring atelectasis. Received 1 L normal saline and IV ceftriaxone and azithromycin in the ED. No acute intracranial pathology on CT head. prob List UTI weakness/deconditioning. plan afebrile, normal white count. VSS continue on gen med, vitals per protocol encourage PO intake, avoid delirium triggers neg legionalla urine antigen, blood cultures pending continue on IV ceftriaxone day 3 for UTI pending cultures will be dc on PO abx for a total of 5 days PT recomending home pt monitor fingersticks dvt ppx with lovenox full code Problem List: 1. Dehydration 2. UTI (urinary tract infection) Pain Ratin Pain Location: na Pain Goal: Pain 4 or less Pain Plan: current regimen Tomorrow's Labs & Rationales: none required JOHNIE CHAIREZ MD 07/26/16 1216: Attending MD Review Statement Attending Statement Attending MD Statement: examined this patient, discuss w/resident/PA/QUALITY ASSURANCE COORDINATOR, agreed w/resident/PA/QUALITY ASSURANCE COORDINATOR, reviewed EMR data (avail), discussed with nursing, discussed with case mgmt, amended to note Attending Assessment/Plan: Patient seen and examined. Resting comfortably and not in any acute distress. Although lethargic staff reports that he is doing much better compared to yesterday. He doesn't questions appropriately. He reports that baseline is bed bound. His is caring for him with assistance of a home care rn. He is able to feed himself. He has been able to feed himself here. It is not clear etiology of his weakness. No acute process has been identified. Although he does have bacteriuria he has been afebrile with no leukocytosis. He denies any dysuria. He has completed 3 days of IV antibiotic with Rocephin to which the Proteus is sensitive. At this point we will discontinue antibiotics and discharge him back home. He is to follow-up with his primary care provider as an outpatient.
[2016-07-26 06:55] VITALS: BP 124/62
--- NOTE | 2016-07-26 10:54 | Patient Discharge Instructions ---
Discharge Instructions General Discharge Information You were seen/treated for: UTI Special Instructions: Please f/up with your PCP within two weeks of discharge Acute Coronary Syndrome Inclusion Criteria At DC or during hospital stay patient has or had the following: ACS DIAGNOSIS No Discharge Core Measures Meds if any: Prescribed or Continued at Discharge Meds if any: NOT Prescribed or Continued at Discharge Congestive Heart Failure Inclusion Criteria At DC or during hospital stay patient has or had the following: CHF DIAGNOSIS No Discharge Core Measures Meds if any: Prescribed or Continued at Discharge Meds if any: NOT Prescribed or Continued at Discharge Cerebrovascular accident Inclusion Criteria At DC or during hospital stay patient has or had the following: CVA/TIA Diagnosis No Discharge Core Measures Meds if any: Prescribed or Continued at Discharge Meds if any: NOT Prescribed or Continued at Discharge Venous thromboembolism Inclusion Criteria VTE Diagnosis No VTE Type NONE VTE Confirmed by (Test) NONE Discharge Core Measures - Per Current guidelines, there needs to be overlap - treatment for the first 5 days of Warfarin therapy. - If discharged on Warfarin prior to 5 days of - overlap therapy, the patient will need to be - assessed for post discharge needs including - *Post discharge parental anticoagulation - *Warfarin and/or parental anticoagulation education - *Follow up date to check INR post discharge At least 5 days overlap therapy as Inpatient No Meds if any: Prescribed or Continued at Discharge Note: Overlap Therapy is Warfarin and Anticoagulant Meds if any: NOT Prescribed or Continued at Discharge
[2016-07-26] MEDS ORDERED: BACTRIM DS TAB1 EACH PO (10:57)
--- NOTE | 2016-07-26 14:02 | NUR ---
WOUND CARE: REQUESTED BY NURSING STAFF TO EVALUATE PT FOR SKINJ ALTERATION PRESENT ON ADMISSION - HX OBTAINED FROM PT - STATED WOUND PRESENT X "MONTHS" AND HAS BEEN CARED FOR BY VISITING NURSES AND PRIVATE DUTY AIDES (3 HOURS PER DAY) - UPON ASSESSMENT, PT HAS A STAGE 2 PRESSURE INJURY 0.6 X 0.3 CM CLEAN PINK DERMAL FILL - PERIWOUND UNREMARKABLE - RECOMMENDATION: APPLY HYDROCOLLOID DRESSING Q 3 DAYS AND PRN - CONT USE OF GROUP 2 MATTRESS PLEASE - DIETARY TO EVALUATE WELL - PT TO REMAIN ON SIDELYING POSITION MISHA
--- NOTE | 2016-07-27 11:41 | NUR ---
07/27 CARI VISITING RN STATES ON W10 BACTRIM IS LISTED BUT PT DOES NOT HAVE PRESCRIPTION FOR BACTRIM. CALL PLACED TO DR CHELSEA AMEZQUITA OF THE DAY AND SHE STATES DR Saran AMOS OR DR Teresa PATEL HAD PT AND D/C THEM YESTERDAY SO SHE WILL CONTACT THEM AND ASK THAT THEY CALL CONFIRM REGARDING BACTRIM WITH RELL FROM VISITING RN RELL [phone].
--- NOTE | 2016-07-27 17:52 | NUR ---
WOUND CARE: LATE ENTRY 07/26/16 1130 AM - REQUESTED BY NURSING STAFF TO EVALUATE PT FOR SKIN INTEGRITY PRIOR TO DC - PT OBSERVED IN BED ON SIDELYING POSITION - INC CARE PROVIDED - LARGE AMOUNT URINE - LEFT BUTTOCKS NOTED WTIH A STAGE 2 PRESSURE INJURY 0.2 X 0.2 CM CLEAN PINK DERMAL FILL - PERIWOUND UNREMARKABLE - NO EVIDENCE OF INFECTION- NO C/O VOICED RECOMMENDATION: APPLY VITAMIN A+D OINTMENT QS ADN PRN - SIDELYING POSITION TOLERATED PT HAS RESPIRATIRY C/O - F/U AT [facility] NEEDED IF FAILURE TO HEAL IN 2 WEEKS PLEASE
--- NOTE | 2016-08-25 05:24 | Discharge Summary ---
Visit Information Visit Dates Admission Date: 07/24/16 Discharge Date: 07/26/16 Hospital Course Course Attending Physician: JOHNIE CHAIREZ M.D Primary Care Physician: HARLEY SMITH,YANET Serna Hospital Course: 86-year-old gentleman with past medical history of CVA in 2000, dementia, spinal stenosis, borderline DM, hx of upper GI bleed secondary to esophageal ulceration (February 2014), UTI, constipation, who came to the ED due to worsening weakness and fatigue of 2 days duration. In the ED, vitals and labs were nonsignificant. UA showed moderately cloudy urine, leukocyte esterase positive and nitrite negative with many bacteria and 3-5 WBC. Some triphosphate crystals were seen. Chest x-ray done showed left basilar opacity favoring atelectasis. No acute intracranial pathology on CT head. Received 1 L normal saline and IV ceftriaxone and azithromycin in the ED. He was admitted to the General medicine floor for UTI and deconditioning. PO intake was encouraged. [place] urine antigen and blood cultures negative. Urine culture postive for Proteus Mirabilis. He is bedbound at baseline. His is caring for him with assistance of a home hospice rn. He is able to feed himself. He has been able to feed himself here. It is not clear etiology of his weakness. No acute process has been identified. He has completed 3 days of IV antibiotic with Rocephin to which the Proteus is sensitive. Clinical improvement was noted and he was discharge home. Advised to follow-up with his primary care provider as an outpatient. Complications: none Allergies: Coded Allergies: NO KNOWN ALLERGIES (10/27/14) Significant Procedures: SERVICE DATE: 07/23/16 EXAM TYPE: RAD - XRY-PORTABLE CHEST XRAY FINDINGS: Lung volumes are symmetric. There is minimal opacity at the left base favoring atelectasis. No additional consolidation is seen. No evidence of pneumothorax, significant pleural effusion, or pulmonary edema. Cardiac size is within normal limits. Calcification is present at the aortic arch. No acute osseous findings are seen. IMPRESSION: Minimal left basilar opacity favoring atelectasis. SERVICE DATE: 07/23/16 EXAM TYPE: CAT - CT HEAD WO IV CONTRAST FINDINGS: There is no evidence of acute intracranial hemorrhage or territorial infarction. No abnormal mass effect or midline shift is seen. Schmidt to white matter differentiation is well preserved. No extra-axial fluid collections are identified. There is atrophy with prominence of the ventricles and the sulci and hypodensity of the periventricular white matter due to chronic small vessel ischemic disease. There is vascular calcifications of the internal carotid arteries bilaterally. The osseous structures and soft tissues are normal. The mastoid air cells and visualized portions of the paranasal sinuses are well aerated. IMPRESSION: No acute intracranial pathology. Disposition Summary Disposition Principal Diagnosis: UTI Additional Diagnosis: Deconditioning CVA Dementia Discharge Disposition: home health services Discharge Instructions General Discharge Information Code Status: Full Code Patient's Diet: diabetic diet Patient's Activity: as tolerated Follow-Up Instructions/Appts: f/up with PCP within two weeks of discharge Medications at Discharge Discharge Medications: Continue taking these medications: Metformin HCl (Metformin HCl) 500 MG TABLET 1 Tablet ORAL TWICE DAILY Comments: NOT GIVEN IN HOSPITAL Pantoprazole Sodium (Pantoprazole Sodium) 40 MG TABLET.DR 1 Tablet ORAL TWICE DAILY Qty = 90 Comments: Last Taken: 07/26/16 Time: 6AM SUBSTITUTION GIVEN WHILE IN HOSPITAL Tramadol HCl (Tramadol HCl) 50 MG TABLET 1 Tablet ORAL EVERY SIX HOURS NEEDED as needed for PAIN Comments: Last Taken: 07/24/16 Time: 7PM Cyanocobalamin (Vitamin B-12) 1,000 MCG TABLET 1 Tablet ORAL DAILY Comments: Last Taken: 07/26/16 Time: 9AM Copies To: HARLEY SMITH,YANET Nix MD Review Statement Documenting Attending: CHRISTEN GATES MD
== END 2016-07-26 15:20 | disposition home health service (06) | DRG 690 ==
LOC: ERH 22:41 → 2NA 07-24 09:24 → ERHI 07-24 09:24 → ENRESERV 07-24 10:30 → 2NA 07-24 12:04 → ENPENDDIS 07-26 13:53 → 2NA 07-26 15:20
PROVIDERS: Pediatrics; Student in an Organized Health Care Education/Training Program; ADMIT Internal Medicine
DX: N39.0 Urinary tract infection, site not specified (principal); R64 Cachexia; D53.1 Other megaloblastic anemias, not elsewhere classified; F03.90 Unspecified dementia, unspecified severity, without behavioral disturbance, psychotic disturbance, mood disturbance, and anxiety; E86.0 Dehydration; E11.9 Type 2 diabetes mellitus without complications; Z86.73 Personal history of transient ischemic attack (TIA), and cerebral infarction without residual deficits; Z79.84 Long term (current) use of oral hypoglycemic drugs; M10.9 Gout, unspecified; G89.29 Other chronic pain; M54.9 Dorsalgia, unspecified; Z68.21 Body mass index [BMI] 21.0-21.9, adult
CPT/HCPCS: 2NASP; 81001; 82436; 87040; 87086; 87449; 87450; 93005; 93010; 97162-GP; 97530-GP; J0456; J0696; J1650; J7040

== ENCOUNTER 2017-05-25 12:31 | Emergency (ER) | payer OTHER ==
[~2017-05-25] VITALS: Ht 172.7 cm; Wt 72.6 kg
[~2017-05-25 12:31] MED LIST changes: +AUGMENTIN 500-1 EACH PO; +BACTRIM DS TAB1 EACH PO; +LIDODERM1 EACH TOP; +MELATONIN5 M5 PO; +PANTOPRAZOLE SO40 M1 PO; +TYLENOL ARTHRI650 M1 PO; +VITAMIN B-121000 MC3 PO
--- NOTE | 2017-05-25 12:45 | ED GENERAL ADULT ---
History of Present Illness General Chief Complaint: Altered Mental Status Stated Complaint: AMS Source: old records, EMS Exam Limitations: confusion, dementia Allergies Coded Allergies: NO KNOWN ALLERGIES (10/27/14) Reconcile Medications Acetaminophen (Tylenol Arthritis) 650 MG TABLET.ER 1 TAB PO Q4-6 PRN PRN Pain Augmentin (Augmentin 500-125 Tablet) 500 MG-125 MG TABLET 1 TAB PO BID Pneumonia Cyanocobalamin (Vitamin B-12) 1,000 MCG TABLET 1 TAB PO DAILY SUPPLEMENT ( Reported) Lidocaine (Lidoderm) 5 % ADH..PATCH 1 PAT TOP DAILY PRN Back Pain may wear up to 12 hours Melatonin 5 MG CAPSULE 1 TAB PO DAILY PRN Insomnia Metformin HCl 500 MG TABLET 1 TAB PO BID DM (Reported) Pantoprazole Sodium 40 MG TABLET.DR 1 TAB PO BID GI (Reported) Triage Nurses Notes Reviewed? yes HPI: Patient lives at home with his family. Patient has dementia. Patient was sent in for increasing confusion. His visiting nurse also noticed that he was shaking a little bit and she's noticed that he is shook like that in the past when he has had a UTI. Patient is unable to provide any history. (Alf SMITH,Ahmet Cummins) Vital Signs & Intake/Output Vital Signs & Intake/Output Vital Signs Date Time Temp Pulse Resp B/P B/P Pulse O2 O2 Flow FiO2 Mean Ox Delivery Rate 05/26 1123 98.0 51 16 136/80 99 Room Air 05/26 0836 100 Nasal 2.0L Cannula 05/26 0834 98.0 58 16 144/70 100 Nasal 2.0L Cannula 05/26 0731 97.2 80 18 155/85 98 Nasal 2.0L Cannula 05/26 0529 95.9 77 16 135/69 98 Nasal 2.0L Cannula 05/25 2137 97.2 59 18 161/70 98 Nasal 2.0L Cannula 05/25 1921 97.8 58 18 143/66 98 Room Air 05/25 1558 62 18 155/90 96 Nasal 2.0L Cannula 05/25 1454 96 Room Air ED Intake and Output 05/26 0000 05/25 1200 Intake Total Output Total 120 Balance -120 Output, Urine 120 Patient 160 lb Weight Weight Estimated Measurement Method (Ra SMITH,Kaden Pizano) Past History Medical History Any Pertinent Medical History? 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 No (Alf SMITH,Ahmet Cummins) Review of Systems Review of Systems Constitutional: Reports: see HPI. (Alf SMITH,Ahmet Cummins) Physical Exam Physical Exam General Appearance: well developed/nourished, awake Head: atraumatic Eyes: Bilateral: PERRL. Ears, Nose, Throat: normal pharynx, hearing grossly normal Neck: normal inspection, supple, full range of motion Respiratory: normal breath sounds, chest non-tender, no respiratory distress, lungs clear Cardiovascular: regular rate/rhythm, normal peripheral pulses Gastrointestinal: normal bowel sounds, soft Back: normal inspection Extremities: normal inspection, normal capillary refill, normal range of motion, no edema Neurologic/Psych: pt is awake but not following any comands Core Measures ACS in differential dx? No CVA/TIA Diagnosis: No Sepsis Present: No Sepsis Focused Exam Completed? No (Alf SMITH,Ahmet Cummins) Progress Differential Diagnoses I considered the following diagnoses in my evaluation of the patient: [CVA, UTI, pneumonia, electrolyte abnormality] Diagnostic Imaging: Viewed by Me: Radiology Read, CT Scan. Discussed w/RAD: Radiology Read, CT Scan. CXR Impression: PATIENT: ERIN MALDONADO PRESENT AGE : 87 PATIENT ACCOUNT NO: [id number] : 32 LOCATION: [facility] ORDERING PHYSICIAN: Ahmet Milner MD SERVICE DATE: 05/25/17 EXAM TYPE: RAD - CT HEAD WO IV CONTRAST; XRY-CHEST XRAY, TWO VIEWS EXAMINATION: CT HEAD WITHOUT CONTRAST CHEST X-RAY CLINICAL INFORMATION: Increased confusion. Evaluate for pneumonia. COMPARISON: CT head and chest x-ray most recent prior dated 2016 TECHNIQUE: Contiguous axial imaging was performed from the skull base to vertex without intravenous administration of contrast. DLP: 727.15 mGy-cm FINDINGS: CT HEAD: Mildly degraded by patient motion. There is no evidence of acute intra-axial or extra-axial hemorrhage. No acute mass effect or midline shift. Prominence of the ventricles and sulci compatible with age-related involutional changes. Moderate periventricular and subcortical white matter low- attenuation consistent with moderate to severe small vessel ischemic disease. No evidence of acute loss of sanchez-white differentiation. Atherosclerotic disease distal bilateral internal carotid arteries and distal vertebral arteries. Visualized paranasal sinuses and mastoid air cells are well aerated. Status post bilateral lens extraction. Visualized osseous structures are intact. CHEST X-RAY Low right lung volume. Patchy airspace and reticular opacity right lower lung represents an interval change. No acute airspace opacity noted in the left lung. Streaky reticular changes left upper lung representing a chronic change. No evidence of pleural effusion. Degenerative changes noted in the thoracic spine. IMPRESSION: 1. No acute intracranial pathology. Chronic changes as detailed. 2. Patchy airspace disease with associated reticular changes right mid to lower lung. Findings may represent evolving infiltrate or atelectasis with underlying chronic changes. Follow-up chest x-ray after treatment is recommended. DICTATED BY: Tessie Renteria MD DATE/TIME DICTATED:05/25/171336 PRESS OPERATOR MEAT: CARMEN DATE/TIME TRANSCRIBED:05/25/171336 CONFIDENTIAL, DO NOT COPY WITHOUT APPROPRIATE AUTHORIZATION. <Electronically signed in Other Vendor System> SIGNED BY: Tessie Renteria MD 05/25/17 1351 Initial ED EKG: SR, NSSTT CHANGES, PVC'S Prior EKG: unchanged Hand-Off Endorsed To: Janae Strong MD Endorsed Time: 1500 Pending: consult, labs (Alf SMITH,Ahmet Cummins) Differential Diagnoses I considered the following diagnoses in my evaluation of the patient: Hand-Off Endorsed To: Kaden Knapp MD Endorsed Time: 2300 Pending: consult (CASE MANAGEMENT) (Janae Strong MD) Plan of Care: Orders Procedure Date/time Status Heart Healthy Diet 05/26 B Active Current Medications Sig/Alverto Start time Last Medication Dose Stop Time Status Admin Pantoprazole Sodium 40 MG BID 05/26 1000 UNVr 05/26 (Protonix) 0928 Metformin HCl 500 MG 0800,1700 05/26 0800 UNVr (Glucophage) Laboratory Tests 05/25/17 1442: Urine Color YEL, Urine Clarity CLEAR, Urine pH 6.5, Ur Specific [place] <= 1.005 , Urine Protein NEG, Urine Ketones NEG, Urine Nitrite NEG, Urine Bilirubin NEG, Urine Urobilinogen 0.2, Ur Leukocyte Esterase NEG, Ur Microscopic EXAM NOT REQUIRED, Urine Hemoglobin NEG, Urine Glucose NEG 05/25/17 1400: Anion Gap 10, Estimated GFR > 60, BUN/Creatinine Ratio 22.5, Glucose 178 H, Calcium 9.2, Total Bilirubin 0.3, AST 14 L, ALT 20 L, Alkaline Phosphatase 88, Troponin I < 0.01, Total Protein 5.7 L, Albumin 3.0 L, Globulin 2.7, Albumin/ Globulin Ratio 1.1, CBC w Diff NO MAN DIFF REQ, RBC 3.29 L, MCV 96.3 H, MCH 33.1 H, MCHC 34.3, RDW 13.0, MPV 7.9, Gran % 71.8, Lymphocytes % 21.6, Monocytes % 4.9, Eosinophils % 1.3, Basophils % 0.4, Absolute Granulocytes 6.2, Absolute Lymphocytes 1.9, Absolute Monocytes 0.4, Absolute Eosinophils 0.1, Absolute Basophils 0 Microbiology 05/25 1442 URINE ROUT: Urine Culture - RES 05/25 1430 BLOOD: Blood Culture - RES 05/25 1400 BLOOD: Blood Culture - RES Hand-Off Endorsed To: Ahmet Milner MD Endorsed Time: 07 Pending: consult (Ra SMITH,Kaden Pizano) Departure Departure Disposition: HOME OR SELF CARE Condition: Stable Clinical Impression Primary Impression: Dementia Referrals: Mo Kovacs MD (PCP/Family) Additional Instructions: RETURN IF SYMPTOMS WORSEN OR FOR ANY CONCERNS Departure Forms: Customer Survey General Discharge Information (Ahmet Milner MD) Departure Time of Disposition: 1335 (Janae Strong MD) Critical Care Note Critical Care Note Critical Care Time: non-applicable (Ahmet Milner MD) RETURN IF SYMPTOMS WORSEN OR FOR ANY CONCERNS Departure Forms: Customer Survey General Discharge Information (Ahmet Milner MD) Critical Care Note Critical Care Note Critical Care Time: non-applicable (Ahmet Milner MD)
--- NOTE | 2017-05-25 13:51 | RADIOLOGY REPORT ---
EXAMINATION: CT HEAD WITHOUT CONTRAST CHEST X-RAY CLINICAL INFORMATION: Increased confusion. Evaluate for pneumonia. COMPARISON: CT head and chest x-ray most recent prior dated 12/27/2016 TECHNIQUE: Contiguous axial imaging was performed from the skull base to vertex without intravenous administration of contrast. DLP: 727.15 mGy-cm FINDINGS: CT HEAD: Mildly degraded by patient motion. There is no evidence of acute intra-axial or extra-axial hemorrhage. No acute mass effect or midline shift. Prominence of the ventricles and sulci compatible with age-related involutional changes. Moderate periventricular and subcortical white matter low-attenuation consistent with moderate to severe small vessel ischemic disease. No evidence of acute loss of sanchez-white differentiation. Atherosclerotic disease distal bilateral internal carotid arteries and distal vertebral arteries. Visualized paranasal sinuses and mastoid air cells are well aerated. Status post bilateral lens extraction. Visualized osseous structures are intact. CHEST X-RAY Low right lung volume. Patchy airspace and reticular opacity right lower lung represents an interval change. No acute airspace opacity noted in the left lung. Streaky reticular changes left upper lung representing a chronic change. No evidence of pleural effusion. Degenerative changes noted in the thoracic spine. IMPRESSION: 1. No acute intracranial pathology. Chronic changes as detailed. 2. Patchy airspace disease with associated reticular changes right mid to lower lung. Findings may represent evolving infiltrate or atelectasis with underlying chronic changes. Follow-up chest x-ray after treatment is recommended.
[2017-05-25 14:14] LABS: ABSOLUTE BASOPHIL COUNT 0 /CUMM (0.0-0.2); ABSOLUTE EOSINOPHIL COUNT 0.1 /CUMM (0.0-0.7); ABSOLUTE GRANULOCYTE CT 6.2 /CUMM (1.4-6.5); ABSOLUTE LYMPH COUNT 1.9 /CUMM (1.2-3.4); ABSOLUTE MONOCYTE COUNT 0.4 /CUMM (0.10-0.60); BASOPHIL % 0.4 % (0.0-2.0); EOSINOPHIL % 1.3 % (0-5); GRANULOCYTE % 71.8 % (42.2-75.2); HEMATOCRIT 31.6 % (42-52); MEAN CORPUSCULAR HGB 33.1 PG (27.0-31.0); MEAN CORPUSCULAR HGB CONC 34.3 G/DL (33.0-37.0); MEAN CORPUSCULAR VOLUME 96.3 FL (80.0-94.0); MEAN PLATELET VOLUME 7.9 FL (7.4-10.4); PLATELET COUNT 252 /CUMM (130-400); RED BLOOD CELL CT 3.29 /CUMM (4.70-6.10); WHITE BLOOD CELL COUNT 8.6 /CUMM (4.8-10.8)
[2017-05-26 14:13] VITALS: BP 159/75
== END 2017-05-26 14:17 ==
LOC: ERH 12:31
PROVIDERS: Emergency Medicine
DX: F03.90 Unspecified dementia, unspecified severity, without behavioral disturbance, psychotic disturbance, mood disturbance, and anxiety (principal); E11.9 Type 2 diabetes mellitus without complications
CPT/HCPCS: 71046; 81003; 87040; 87086; 93005; 93010; 96374; J0131

== ENCOUNTER 2017-10-10 11:52 | Inpatient (IN) | payer OTHER ==
[~2017-10-10] VITALS: Ht 188 cm; Wt 69.9 kg
[2017-10-10] MEDS ORDERED: HYDROCODON-ACE1 EAC3 PO (12:16)
--- NOTE | 2017-10-10 12:21 | ED GENERAL ADULT ---
See Addendum History of Present Illness General Chief Complaint: General Adult Stated Complaint: BED SORE TO BACK Source: patient Exam Limitations: no limitations Allergies Coded Allergies: NO KNOWN ALLERGIES (10/27/14) Reconcile Medications Acetaminophen (Tylenol Arthritis) 650 MG TABLET.ER 1 TAB PO Q4-6 PRN PRN Pain Cyanocobalamin (Vitamin B-12) 1,000 MCG TABLET 1 TAB PO DAILY SUPPLEMENT ( Reported) Hydrocodone/Acetaminophen (Hydrocodon-Acetaminoph 7.5-325) 7.5 MG-325 MG TABLET 1 TAB PO TIDPRN PRN PAIN (Reported) Lidocaine (Lidoderm) 5 % ADH..PATCH 1 PAT TOP DAILY PRN Back Pain may wear up to 12 hours Melatonin 5 MG CAPSULE 1 TAB PO DAILY PRN Insomnia Metformin HCl 500 MG TABLET 1 TAB PO BID DM (Reported) Pantoprazole Sodium 40 MG TABLET.DR 1 TAB PO BID GI (Reported) Triage Note: PT BROUGHT IN BY AMBULANCE FROM HOME WITH BEDSORE TO HIS BACK. PER EMS HOME HEALTH AIDE STATES THE WOUND WAS HEALING A FEW DAYS AGO AND THEN SHE LEFT FOR 2 DAYS WITH REPLACEMENT STAFF IN AND SHE FEELS THEY MAY NOT HAVE PUT CREAM OR ATTENDED TO WOUND AT ALL BECAUSE WOUND IS WORSE THAN EVER. PT HAS LARGE 18 INCHES X 12 INCH RED AREA TO BACK WITH OPEN AREA TO LOWER AREA. Triage Nurses Notes Reviewed? yes Onset: Gradual Duration: day(s): Timing: recent history HPI: 87 year old male that presents to the Emergency Department for severe erythema and pustular rash to his upper back. He has a past medical history of dementia and is status post CVA. ward attendant was caring for him, and concern was raised that his dressing had not been changed. (Layton Wong DO) Vital Signs & Intake/Output Vital Signs & Intake/Output Vital Signs Date Time Temp Pulse Resp B/P B/P Pulse O2 O2 Flow FiO2 Mean Ox Delivery Rate 10/10 1819 97.9 87 19 124/60 92 Room Air 10/10 1625 97.8 78 18 140/63 95 Room Air 10/10 1158 97.7 65 18 114/55 97 Room Air (Joseluis SMITH,Olga) Past History Travel History Traveled to [place] past 21 day No Medical History Any Pertinent Medical History? 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 No (Layton Wong DO) Review of Systems Review of Systems Constitutional: Reports: see HPI. EENTM: Reports: no symptoms. Respiratory: Reports: no symptoms. Cardiovascular: Reports: no symptoms. GI: Reports: no symptoms. Genitourinary: Reports: no symptoms. Musculoskeletal: Reports: no symptoms. Skin: Reports: see HPI. Denies: erythema (macular pustular). Neurological/Psychological: Reports: no symptoms. Hematologic/Endocrine: Reports: no symptoms. Immunologic/Allergic: Reports: no symptoms. All Other Systems: Reviewed and Negative (Layton Wong DO) Physical Exam Physical Exam General Appearance: alert, awake, moderate distress Head: atraumatic, normal appearance Eyes: Bilateral: normal appearance, PERRL, EOMI. Ears, Nose, Throat: normal ENT inspection Neck: normal inspection Respiratory: decreased breath sounds Cardiovascular: regular rate/rhythm Peripheral Pulses: 4+ radial (R), 4+ radial (L) Gastrointestinal: soft, non-tender Back: erryathema Extremities: normal inspection Neurologic/Psych: awake, alert Skin: rash (see below) Comments: He has a large area of angry bright red erythema to his central upper Back. there is pustular discharge. Concerning for cellulitis. Core Measures ACS in differential dx? No CVA/TIA Diagnosis: No Sepsis Present: Yes Sepsis Focused Exam Completed? Yes (Layton Wong DO) Progress Differential Diagnoses I considered the following diagnoses in my evaluation of the patient: [ Cellulitis, infected decubiti, necrotizing fasciitis,] CXR Impression: no acute infiltrate Initial ED EKG: NSR, nonspecific ST T wave chg, motion artifact, consistent with prior tracings,sinus rhythm Prior EKG: unchanged (no significant change) Comments: Multiple prior EKGs were reviewed. (Layton Wong DO) Plan of Care: Orders Procedure Date/time Status CBC WITHOUT DIFFERENTIAL 10/11 0600 Active BASIC ELECTROLYTES PLUS BUN&CR 10/11 0600 Active Consistent Carbohydrate 3 10/10 D Active LACTIC ACID 10/10 2200 Active Skin/Pressure Ulcer Assess (Sk 10/10 1943 Active Turn and Reposition 10/10 1904 Active LACTIC ACID 10/10 1900 Complete Weight 10/10 1801 Active Vital Signs 10/10 1801 Active Teach/Educate 10/10 1801 Active Pain Treatment and Response 10/10 1801 Active Nutritional Intake, Monitor 10/10 1801 Active Isolation 10/10 1801 Active Intake & Output 10/10 1801 Active Patient Care Conference 10/10 1801 Active Activity/Ambulation 10/10 1801 Active Precautions 10/10 1737 Active Wound Care/Dressing 10/10 1736 Active Pathway - chart 10/10 1702 Active Pathway - chart 10/10 1622 Active LACTIC ACID 10/10 1621 Complete ACTIVE SURVEILLANCE NARES 10/10 1530 Active Lab Add-on Test 10/10 1527 Active ED Holding Orders 10/10 1526 Active Admit to inpatient 10/10 1526 Active Vital Signs 10/10 1526 Active VITAL CAPACITY MONITORING 10/10 1521 Active ED Holding Orders 10/10 1521 Active Admit to inpatient 10/10 1521 Active Patient Data 10/10 1521 Active Code Status 10/10 1521 Active EKG 10/10 1514 Active GLYCOSYLATED HGB 10/10 1412 Active Saline Lock 10/10 1321 Active BLOOD CULTURE 10/10 1321 Active LACTIC ACID 10/10 1321 Active COMPREHENSIVE METABOLIC PANEL 10/10 1321 Active CBC WITHOUT DIFFERENTIAL 10/10 1321 Complete Intake & Output 10/10 1213 Active VTE Mechanical Prophylaxis 10/10 UNK Active FingerStick- Glucose 10/10 UNK Active Current Medications Sig/Alverto Start time Last Medication Dose Stop Time Status Admin Ampicillin Sodium/ 1,500 MG Q6H 10/10 2200 AC Sulbactam Sodium (Unasyn) Sodium Chloride 100 ML (Normal Saline 0.9%) Heparin Sodium 5,000 UNIT Q8 10/10 2200 AC (Porcine) Bacitracin 1 CECILY BID 10/10 2100 AC (Bacitracin Ointment) Acetaminophen 650 MG Q6P PRN 10/10 1715 AC (Tylenol) Oxycodone HCl 5 MG Q6P PRN 10/10 171 AC 10/10 (Roxicodone) 183 Tramadol HCl 50 MG Q4P PRN 10/10 171 AC 10/10 (Ultram) 204 Insulin Aspart 0 TIDAC 10/10 1700 AC (NovoLOG) Laboratory Tests 10/10/172002: Lactic Acid Cancelled 10/10/17 1919: Lactic Acid 1.8 10/10/17 1600: Lactic Acid 2.5 H 10/10/17 1412: Anion Gap 12, Estimated GFR > 60, BUN/Creatinine Ratio 25.6 H, Glucose 214 H, Hemoglobin A1c Pending, Lactic Acid 2.6 H, Calcium 8.6, Total Bilirubin 0.6, AST 18, ALT 28, Alkaline Phosphatase 83, Total Protein 5.5 L, Albumin 2.8 L, Globulin 2.7, Albumin/Globulin Ratio 1.0 L, CBC w Diff MAN DIFF ORDERED, RBC 3.23 L, MCV 98.8 H, MCH 33.9 H, MCHC 34.3, RDW 14.2, MPV 8.2, Gran % 83.8 H, Lymphocytes % 10.1 L, Monocytes % 5.1, Eosinophils % 0.4, Basophils % 0.6, Absolute Granulocytes 9.4 H, Segmented Neutrophils 72, Band Neutrophils 11 H, Absolute Lymphocytes 1.1 L, Lymphocytes 13 L, Monocytes 4, Absolute Monocytes 0.6, Absolute Eosinophils 0, Absolute Basophils 0.1, Platelet Estimate ADEQUATE, Normocytic RBCs VERIFIED, Normochromic RBCs VERIFIED Microbiology 10/10 1827 UPPER RESP: Surveillance Culture - RECD 10/10 1421 BLOOD: Blood Culture - RECD 10/10 1409 BLOOD: Blood Culture - RECD (Olga Huggins MD) Departure Departure Disposition: STILL A PATIENT Condition: Stable Clinical Impression Primary Impression: Cellulitis Referrals: Fermín SMITH,Mo Serna (PCP/Family) Departure Forms: Customer Survey General Discharge Information Comments The patient was treated with IV fluids. His initial lactic acid level was elevated. Repeat lactic acid level was normal. There is no evidence of end organ damage. Admission Note Spoke With: Tico Gloria MD Documentation of Exam: Documentation of any treatments & extenuating circumstances including Concerns Regarding Discharge (functional status, medication knowledge or non-compliance, living conditions, etc.) that warrant an admission rather than observation: [The patient needs admission for IV antibiotics, local wound care, IV fluids] (Layton Wong DO) Critical Care Note Critical Care Note Critical Care Time: non-applicable (Layton Wong DO)
--- NOTE | 2017-10-10 14:03 | RADIOLOGY REPORT ---
EXAMINATION: XR PORTABLE CHEST CLINICAL INFORMATION: Rash. Presumptive diagnosis of infection. COMPARISON: 10/17/2016 and 05/25/2017 TECHNIQUE: Portable frontal view of the chest was obtained. FINDINGS: Lungs are hypoinflated and right diaphragm mildly elevated. The evaluation of the lower lobes is suboptimal on this single view examination. There is an area of increased hazy opacity in the retrocardiac region of the left lower lobe. However, this is nonspecific and could represent atelectasis or infiltrate. No pleural effusion. Cardiac silhouette is normal in size. Atherosclerotic calcification of thoracic aorta and coronary arteries. Bones appear diffusely osteopenic. IMPRESSION: There appears to be hazy opacity in the retrocardiac region of left lower lobe from atelectasis or infiltrate. Otherwise, no new pulmonary findings compared to 05/25/2017.
[2017-10-10 14:25] LABS: ABSOLUTE BASOPHIL COUNT 0.1 /CUMM (0.0-0.2); ABSOLUTE EOSINOPHIL COUNT 0 /CUMM (0.0-0.7); ABSOLUTE GRANULOCYTE CT 9.4 /CUMM (1.4-6.5); ABSOLUTE LYMPH COUNT 1.1 /CUMM (1.2-3.4); ABSOLUTE MONOCYTE COUNT 0.6 /CUMM (0.10-0.60); BASOPHIL % 0.6 % (0.0-2.0); EOSINOPHIL % 0.4 % (0-5); GRANULOCYTE % 83.8 % (42.2-75.2); MEAN CORPUSCULAR HGB 33.9 PG (27.0-31.0); MEAN CORPUSCULAR HGB CONC 34.3 G/DL (33.0-37.0); MEAN CORPUSCULAR VOLUME 98.8 FL (80.0-94.0); MEAN PLATELET VOLUME 8.2 FL (7.4-10.4); PLATELET COUNT 207 /CUMM (130-400); RBC DISTRIBUTION WIDTH 14.2 % (11.5-14.5); RED BLOOD CELL CT 3.23 /CUMM (4.70-6.10); WHITE BLOOD CELL COUNT 11.2 /CUMM (4.8-10.8)
--- NOTE | 2017-10-10 15:22 | History & Physical ---
Olga Huggins 10/10/17 1522: General Information and HPI MD Statement: I have seen and personally examined ERIN MALDONADO and documented this H&P. The patient is a 87 year old M who presented with a patient stated chief complaint of [CELLULITIS]. 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 The states that patient has daily visiting health aide who manages his pressure sore however since past 4 days, and other home health aide was covering for her. The states that the new home health aid did not offload the patient and he kept lying on his back. the new home health aid also did not apply his back medication as was advised which is why his pressure sore has worsened. Patient was last seen in [facility] in October 2016, when he was admitted for delirium and pneumonia. He had a erythematous lesion measuring 10 X5 cm with multiple stage II and stage III pressure ulcer on his back during that admission and was evaluated by Dr. Way. He was advised frequent offloading and application of Duoderm dressing on the back which should be changed every 2- 3 days. The reported that today she noticed that the erythema had covered the his entire back, and is draining purulent fluid. Patient denies any fever or chills. His review of system is negative for any headache, chest pain, difficulty breathing, abdominal discomfort, diarrhea/ constipation, burning micturition. Patient does report of a 7/10 back pain which has limited his back movement, at home he takes hydrocodone 7.5 mg. also reported that patient is immobile since a long time, and only moves from bed to a recliner chair with assistance. His use of wheelchair is limited to transportation to/form his appointments. Allergies/Medications Allergies: Coded Allergies: NO KNOWN ALLERGIES (10/27/14) Home Med list Acetaminophen (Tylenol Arthritis) 650 MG TABLET.ER 1 TAB PO Q4-6 PRN PRN Pain Cyanocobalamin (Vitamin B-12) 1,000 MCG TABLET 1 TAB PO DAILY SUPPLEMENT ( Reported) Hydrocodone/Acetaminophen (Hydrocodon-Acetaminoph 7.5-325) 7.5 MG-325 MG TABLET 1 TAB PO TIDPRN PRN PAIN (Reported) Lidocaine (Lidoderm) 5 % ADH..PATCH 1 PAT TOP DAILY PRN Back Pain may wear up to 12 hours Melatonin 5 MG CAPSULE 1 TAB PO DAILY PRN Insomnia Metformin HCl 500 MG TABLET 1 TAB PO BID DM (Reported) Pantoprazole Sodium 40 MG TABLET.DR 1 TAB PO BID GI (Reported) Past History Travel History Traveled to [place] past 21 day No Medical History Neurological: CVA, dementia, peripheral neuropathy EENT: NONE Cardiovascular: NONE Respiratory: NONE Gastrointestinal: BLEEDING ULCER Hepatic: NONE Renal: NONE Musculoskeletal: GOUT SPINAL STENOSIS OSTEOARTH, FX HIPS Psychiatric: NONE Endocrine: BORDERLINE DM Blood Disorders: NONE Cancer(s): NONE AUTOMATIC DOOR MECHANIC/Reproductive: NONE History of MRSA: No History of VRE: No History of CDIFF: No Surgical History Surgical History: HERNIA REPAIR Past Family/Social History Family History Relations & Conditions if any MOTHER Relation not specified for: FH ischemic heart disease Psychosocial History Who Do You Live With? spouse Services at Home: Home Health Aide Primary Language: Chinese Functional Ability Ambulation: non-ambulatory, Patient previously walked with walker, but has been unable to ambulate for past 3 weeks due to foot problems. Review of Systems Review of Systems Constitutional: Reports: see HPI. Exam & Diagnostic Data Last 24 Hrs of Vital Signs/I&O Vital Signs Date Time Temp Pulse Resp B/P B/P Pulse O2 O2 Flow FiO2 Mean Ox Delivery Rate 10/10 1625 97.8 78 18 140/63 95 Room Air 10/10 1158 97.7 65 18 114/55 97 Room Air Intake & Output 10/10 1600 10/10 0800 10/10 0000 Intake Total 0 Output Total Balance 0 Intake, Oral 0 Patient 77.111 kg Weight Weight Reported by Patient Measurement Method Physical Exam General Appearance Alert, oriented x 2 Skin 14 inch long erythematous lesion covering his entire back Skin Temp/Moisture Exam: Warm/Dry Sepsis Skin Exam (color): Normal for Ethnicity HEENT Atraumatic Neck Supple Cardiovascular Regular Rate, Normal S1, Normal S2 Lungs Clear to Auscultation, Normal Air Movement Abdomen Normal Bowel Sounds, Soft, No Tenderness Extremities No Edema, Normal Pulses Sepsis Peripheral Pulse Location: Radial Sepsis Peripheral Pulse Exam: Normal Sepsis Cap Refill Exam: <2 Sec Assessment/Plan Assessment: Patient is 87-year-old male with past medical history of CVA in 2000, dementia, diabetes, 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 The states that patient has daily visiting health aide who manages his pressure sore however since past 4 days, and other home health aide was covering for her. The states that the new home health aid did not offload the patient and he kept lying on his back. the new home health aid also did not apply his back medication as was advised which is why his pressure sore has worsened. Patient was last seen in [facility] in October 2016, when he was admitted for delirium and pneumonia. He had a erythematous lesion measuring 10 X5 cm with multiple stage II and stage III pressure ulcer on his back during that admission and was evaluated by Dr. Way. He was advised frequent offloading and application of Duoderm dressing on the back which should be changed every 2- 3 days. The reported that today she noticed that the erythema had covered the his entire back, and is draining purulent fluid. Labs and vitals as above. His lactic acid is elevated to 2.6. Leukocytosis of 11.2, hemoglobin 11, glucose 214 Chest x-ray showsChest x-ray shows stable hazy opacity in retrocardiac region of left lower lobe. Assessment and plan Will admit the patient on general medicine floor, the worsening of his back pressure sore could be due to inability to offload the pressure areas in past 4 days and medication non complainace given that the enw health aid was not applying his pressure sore medication. Currently it appears that patient has cellulitis on his back 14 inch in length and covering his entire back in its diameter. will repeat cbc in am and monitor for any fevers. Wound care consult in am and local wound cleaning and application of bactrim for today. Given his chronic back ulcer, he is high risk for mrsa, will check his nars and local wound for mrsa. He was given one dose of unasyn in ER, if has MRSA colonization, will consider switching him to vancomycin. Will check his HBA1c, last one from 2016 is 6.7, he takes metformin at home. will start him on sliding scale and finger sticks. Patient had dysphagia and his previous admission which was followed up with modified barium swallow, his diet was advised to be pure and nectar thick so we 'll continue the same as consistent carbohydrate 3 Pain management with oxycodone for sever pain, tramadol moderate and tylenol mild pain. DVT ppx SC heprin Patient is full code. As Ranked By This Provider Problem List: 1. Pressure ulcer of back Core Measures/Misc (12/05) Acute Coronary Syndrome ACS Diagnosis: No Congestive Heart Failure Congestive Heart Failure Diagnosis No Cerebrovascular Accident CVA/TIA Diagnosis: No VTE (View Protocol) VTE Risk Factors Age>40 No Mechanical VTE Prophylaxis d/t N/A MechProphylax Ordered No VTE Pharm Prophylaxis d/t NA PharmProphylax ordered Sepsis (View protocol) Sepsis Present: Yes If YES complete Sepsis Event Note If YES complete Sepsis Event Note Tico Gloria MD 10/10/17 1958: Core Measures/Misc (12/05) Sepsis (View protocol) If YES complete Sepsis Event Note If YES complete Sepsis Event Note Attending MD Review Statement Attending Statement Attending MD Statement: examined this patient, discuss w/resident/PA/LAUNDRY OPERATOR WASH ROOM, agreed w/resident/PA/LAUNDRY OPERATOR WASH ROOM, discussed with family, reviewed EMR data (avail), reviewed images, amended to note Attending Assessment/Plan: The patient is an 87 yo male with h/o CVA (2000), dementia, DM2, GERD, and chronic decubitus/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 His usual medical practice administrator had been away for several days and a substitute was in place. The usual aide returned today and found worsening of the erythema/sore on his back. His stated that he also had increased pain. He normally goes from bed to recliner (with assistance), however pain has precluded transfers. He has had no fever, chest pain, dyspnea, abdominal pain or other symptoms. He was seen by Dr. Muniz for wound care during a prior admission (11/04). Physical Exam: VS: T 97.8, P 65, R 18, BP 114/55, PO 97% RA HEENT: eyes- PERRLA, EOMI ginger- slightly dry mucosa Neck: no JVD/bruits Chest: diminished breath sounds, otherwise clear Cor: RRR nl S1, S2, +1/6 sys murm LSB Ext: no edema, pulses 1+ Neuro: alert, able to answer simple questions, does c/o back pain, non-focal otherwise- generalized weakness Derm: + 14" area of erythema and scaling on entire back (increased in last week per ) with slight warmth w/o purulence Labs/Tests- as above Impression/Plan: #Cellulitis of Back/Ulcerations- has had chronic pressure sores, however over last week has increased in size and erythema w/o purulent drainage. No fever, however does have elevated WBC 11.2. Had similar ulcer in 2017 (also had aspiration at that time) and was treated with IV Unasyn. Plan: Admit to general medical service. Agree with IV Unasyn at present. Wound care consult in morning. #Possible Sepsis- noted in ED- the patient does have elevated lactate level & leukocytosis with source being cellulitis on back. No fever, tachypnea, lack of capillary filling, etc. Lactate may be elevated due to slight volume depletion. Was given IV fluids per sepsis protocol in ED. The patient does appear mildly volume depleted. Plan: Will follow-up lactate as per protocol. BC x 2 done. Continue Unasyn at present. IV fluid bolus given in ED and will continue if PO intake not good. #Chronic Pain- has been on Lidoderm patch and Hydrocodone/Acetaminophen at home (7.5 mg) tid prn and has had increased pain due to cellulitis per his . Plan: Will increase meds to qid prn at present and discuss with PCP. #DM2- on Metformin as OP. Plan: Will hold Metformin at present and check glucoscans and sliding scale insulin coverage. #GERD- on pantoprazole. Plan: Substitute Omeprazole in hospital. #H/O Aspiration Pneumonia- was on modified diet post last discharge, however states not following at present. No clinical aspiration at present. Plan: Will follow with modified diet- ? swallow evaluation.
--- NOTE | 2017-10-10 16:59 | Sepsis Event Note ---
Sepsis Event Note Severe Sepsis Severe Sepsis Present: No Septic Shock Septic Shock Present: No Event Note Event Note: Patient is admitted for back cellulitis due to worsening of his pressure ulcer. The erythematous lesion is covering his entire back in the diameter and is 14 inches in length. Patient denies any fever or chills. Patient is afebrile in ER but has a leukocytosis of 11,000. We'll continue to monitor him closely for any change in hemodynamic status and we'll continue to administer antibiotics. Sepsis Focused Exam Sepsis Cardiac Exam: Regular Rate/Rhythm Sepsis Resp Exam: CTA Sepsis Cap Refill Exam: <2 Sec Sepsis Peripheral Pulse Exam: Normal Sepsis Peripheral Pulse Location: Radial Sepsis Skin Exam (color): Normal for Ethnicity Skin Temp/Moisture Exam: Warm/Dry
[2017-10-10 18:19] VITALS: BP 124/60
[2017-10-10 22:39] VITALS: BP 112/80
--- NOTE | 2017-10-10 22:49 | Admission Certification ---
Admission Certification Certification Statement - As attending physician, I certify that at the time of - admission, based on clinical presentation, severity of - symptoms, need for further diagnostic testing and - therapeutic interventions, and risk of adverse outcomes - without in-hospital treatment, in my clinical assessment, - this patient requires an acute hospital stay for a minimum - of two nights or longer. I have also considered psychsocial - factors such as support system, advanced age, financial - issues, cognitive issues, and failed out-patient treatments, - past re-admission history, safety of patient, and lack of - compliance as applicable. Specific rationale supporting this admission is: The patient presents with a large area of ceullulitis on his back with leukocytosis and elevated lactate level. Has decubitus ulcer. Concern regarding infection/sepsis. Need to admit to general medicine, hydrate, IV antibiotics ( Unasyn), Blood cultures, wound care consult.
[2017-10-11 06:55] VITALS: BP 112/56
[2017-10-11 08:23] LABS: ABSOLUTE BASOPHIL COUNT 0 /CUMM (0.0-0.2); ABSOLUTE EOSINOPHIL COUNT 0.2 /CUMM (0.0-0.7); ABSOLUTE GRANULOCYTE CT 4.2 /CUMM (1.4-6.5); ABSOLUTE MONOCYTE COUNT 0.5 /CUMM (0.10-0.60); BASOPHIL % 0.4 % (0.0-2.0); EOSINOPHIL % 2.3 % (0-5); MEAN CORPUSCULAR HGB 34.4 PG (27.0-31.0); MEAN CORPUSCULAR HGB CONC 35.2 G/DL (33.0-37.0); MEAN CORPUSCULAR VOLUME 97.7 FL (80.0-94.0); MEAN PLATELET VOLUME 8.8 FL (7.4-10.4); PLATELET COUNT 176 /CUMM (130-400); RBC DISTRIBUTION WIDTH 13.6 % (11.5-14.5); RED BLOOD CELL CT 2.54 /CUMM (4.70-6.10); WHITE BLOOD CELL COUNT 6.9 /CUMM (4.8-10.8)
--- NOTE | 2017-10-11 08:25 | PN- Housestaff ---
See Addendum Subjective Follow-up For: back cellulitis Subjective: No acute events overnight. Afebrile. Patient states his back hurts, has no c/o otherwise. Denies fever, nightsweats and chills. Review of Systems Constitutional: Reports: see HPI. Objective Last 24 Hrs of Vital Signs/I&O Vital Signs Date Time Temp Pulse Resp B/P B/P Pulse O2 O2 Flow FiO2 Mean Ox Delivery Rate 10/11 0655 98.5 60 16 112/56 96 Room Air 10/10 2239 98.1 86 19 112/80 98 Room Air 10/10 1819 97.9 87 19 124/60 92 Room Air 10/10 1625 97.8 78 18 140/63 95 Room Air 10/10 1158 97.7 65 18 114/55 97 Room Air Intake & Output 10/11 1600 10/11 0800 10/11 0000 Intake Total 100 1020 Output Total Balance 100 1020 Intake, IV 100 1000 Intake, Oral 20 Number 1 Bowel Movements Patient 155 lb 170 lb Weight Weight Reported by Patient Measurement Method Physical Exam General Appearance: Alert, Oriented X3, Cooperative Skin: erythematous, warm rash present on entire back surface. 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 The states that patient has daily visiting health aide who manages his pressure sore however since past 4 days leading to the worsening of his pressure sore has worsened. The reported that today she noticed that the erythema had covered the his entire back, and is draining purulent fluid. Problem List: 1. Back Cellulitis 2. Chronic Pain Syndrome 3. Anemia #Back Cellulitis - has worsened since his last admission when adviced to offload from back and use Duoderm dressing changed every 2-3 days. History of chronic cellulitis with worsening. Elevated WBC - continue unasyn 1500mg - patient seen by wound consult- recommend formal dermatologic skin eval by skin culture - Bacitracin - f/u skin culture #Chronic pain - Oxycodone 5mg - Tramadaol 50mg #Anemia: H/H is worsening since admission, possibly dilutional - Follow up Iron, TIBC, Ferritin - Fecal occult Problem List: 1. Cellulitis Pain Ratin Pain Location: back Pain Goal: Remain pain free Pain Plan: oxycodone Tomorrow's Labs & Rationales: cbc,
[2017-10-11 08:35] LABS: HEMATOCRIT 24.8 % (42-52)
--- NOTE | 2017-10-11 08:44 | Cons- Wound Care ---
General Information and HPI Consulting Request Date of Consult: 10/11/17 Requested By: Tico Gloria MD Reason for Consult: Extensive erythema and erythematous changes over his entire back present on admission History of Present Illness: Patient is a 87-year-old history of CVA immobile diabetes admitted with concerns over possible cellulitis is back in the setting of chronic dermatitis. Patient initially had mild leukocytosis and was thought to possibly have cellulitis started on antibiotics Allergies/Medications Allergies: Coded Allergies: NO KNOWN ALLERGIES (10/27/14) Home Med List: Acetaminophen (Tylenol Arthritis) 650 MG TABLET.ER 1 TAB PO Q4-6 PRN PRN Pain Cyanocobalamin (Vitamin B-12) 1,000 MCG TABLET 1 TAB PO DAILY SUPPLEMENT ( Reported) Hydrocodone/Acetaminophen (Hydrocodon-Acetaminoph 7.5-325) 7.5 MG-325 MG TABLET 1 TAB PO TIDPRN PRN PAIN (Reported) Lidocaine (Lidoderm) 5 % ADH..PATCH 1 PAT TOP DAILY PRN Back Pain may wear up to 12 hours Melatonin 5 MG CAPSULE 1 TAB PO DAILY PRN Insomnia Metformin HCl 500 MG TABLET 1 TAB PO BID DM (Reported) Pantoprazole Sodium 40 MG TABLET.DR 1 TAB PO BID GI (Reported) Review of Systems Review of Systems: Noncontributory Past History Travel History Traveled to [place] past 21 day No Medical History Blood Transfusion Hx: Yes Neurological: CVA, dementia, peripheral neuropathy EENT: NONE Cardiovascular: NONE Respiratory: NONE Gastrointestinal: BLEEDING ULCER Hepatic: NONE Renal: NONE Musculoskeletal: osteoarthritis, GOUT SPINAL STENOSIS Psychiatric: NONE Endocrine: BORDERLINE DM Blood Disorders: NONE Cancer(s): NONE PATIENT CARE ASSOCIATE/Reproductive: NONE Surgical History Surgical History: HERNIA REPAIR Family History Relations & Conditions If Any: MOTHER Relation not specified for: FH ischemic heart disease Psychosocial History Where Do You Live? Home Who Do You Live With? spouse Services at Home: Home Health Aide Primary Language: Albanian Smoking Status: Never Smoked Functional Ability Ambulation: non-ambulatory, Patient previously walked with walker, but has been unable to ambulate for past 3 weeks due to foot problems. Exam & Diagnostic Data Vital Signs and I&O Vital Signs Result Date Time Pulse Ox 96 10/11 0655 B/P 112/56 10/11 0655 O2 Delivery Room Air 10/11 06 Temp 98.5 10/11 06 Pulse 60 10/11 0655 Resp 16 10/11 0655 Intake & Output 10/11 0000 10/10 1600 10/10 0800 Intake Total 1020 0 Output Total Balance 1020 0 Intake, IV 1000 Intake, Oral 20 0 Number 1 Bowel Movements Patient 170 lb 170 lb Weight Weight Reported by Patient Reported by Patient Measurement Method There is extensive erythema and edema scaling over the entirety of his back there are several clusters of minute pinpoint ulcers. There is minimal serosanguineous drainage. There is evidence of scaling. Assessment/Plan Impression/Plan: 87-year-old minimally mobile has had chronic erythematous dermatologic lesions over his back. Concern is raised over combination of pressure and possible chronic candidiasis. Recommend formal dermatologic evaluation skin culture. Continue antibiotics pending cultures evaluate evidence of worsening anemia by primary care team Consult Acknowledgment - Thank you for your consult request.
[2017-10-11 14:56] VITALS: BP 110/60
[2017-10-11 21:23] VITALS: BP 110/56
[2017-10-12 06:00] VITALS: BP 110/56
[2017-10-12] MEDS ORDERED: AMOX-CLAV 500-1 EACH PO ×2 (08:30→11:26)
[2017-10-12 09:04] LABS: ABSOLUTE BASOPHIL COUNT 0.1 /CUMM (0.0-0.2); ABSOLUTE EOSINOPHIL COUNT 0.3 /CUMM (0.0-0.7); ABSOLUTE GRANULOCYTE CT 3.4 /CUMM (1.4-6.5); ABSOLUTE LYMPH COUNT 1.9 /CUMM (1.2-3.4); ABSOLUTE MONOCYTE COUNT 0.5 /CUMM (0.10-0.60); BASOPHIL % 1.3 % (0.0-2.0); EOSINOPHIL % 4.7 % (0-5); GRANULOCYTE % 55.4 % (42.2-75.2); HEMATOCRIT 23.4 % (42-52); MEAN CORPUSCULAR HGB 33.6 PG (27.0-31.0); MEAN CORPUSCULAR HGB CONC 34.4 G/DL (33.0-37.0); MEAN CORPUSCULAR VOLUME 97.8 FL (80.0-94.0); MEAN PLATELET VOLUME 8.2 FL (7.4-10.4); PLATELET COUNT 173 /CUMM (130-400); RBC DISTRIBUTION WIDTH 13.8 % (11.5-14.5); RED BLOOD CELL CT 2.39 /CUMM (4.70-6.10); WHITE BLOOD CELL COUNT 6.2 /CUMM (4.8-10.8)
--- NOTE | 2017-10-12 09:08 | PN- Housestaff ---
See Addendum Subjective Follow-up For: Back cellulitis Subjective: No acute events overnight, afebrile. Patient does not verbalize any fever, chest pains, night sweats, chills. Review of Systems Constitutional: Reports: see HPI. Objective Last 24 Hrs of Vital Signs/I&O Vital Signs Date Time Temp Pulse Resp B/P B/P Pulse O2 O2 Flow FiO2 Mean Ox Delivery Rate 10/12 0616 68 10/12 0600 97.9 52 16 110/56 97 Room Air 10/11 2123 97.9 80 18 110/56 96 Room Air 10/11 1600 Room Air 10/11 1456 97.6 86 21 110/60 100 Intake & Output 10/12 1600 10/12 0800 10/12 0000 Intake Total 260 960 Output Total Balance 260 960 Intake, IV 140 260 Intake, Oral 120 700 Number 0 Bowel Movements Patient 154 lb Weight Physical Exam General Appearance: Alert, Oriented X3, Cooperative Skin: Erythematous rash on back is improving as compared to admission, no discharge or flucutations appreciated HEENT: Atraumatic, EOMI Cardiovascular: Regular Rate, Normal S1, Normal S2, Systolic 2/6 murmur Lungs: Clear to Auscultation, Normal Air Movement Assessment/Plan Assessment: Patient is 87-year-old male with past medical history of CVA in 2000, dementia, diabetes, 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 The states that patient has daily visiting health aide who manages his pressure sore however since past 4 days leading to the worsening of his pressure sore has worsened. The reported that today she noticed that the erythema had covered the his entire back, and is draining purulent fluid. Problem List: 1. Back Cellulitis 2. Chronic Pain Syndrome 3. Anemia #Back Cellulitis - has worsened since his last admission when adviced to offload from back and use Duoderm dressing changed every 2-3 days. History of chronic cellulitis with worsening. Elevated WBC - continue unasyn 1500mg - patient seen by wound consult- recommend formal dermatologic skin eval by skin culture - Bacitracin - continue to offload patient - will transition patient to PO Augmentin upon discharge #Chronic pain - Oxycodone 5mg - Tramadaol 50mg #Anemia: H/H is worsening since admission. Iron panel is indicative of ACD. Low Iron, TIBC, normal ferritin - f/u Fecal occult - f/ u Folate, B12 Problem List: 1. Chronic cellulitis Pain Ratin Pain Location: back Pain Goal: Pain 4 or less Pain Plan: oxycodone Tomorrow's Labs & Rationales: CBC
--- NOTE | 2017-10-12 09:17 | Patient Discharge Instructions ---
Discharge Instructions General Discharge Information You were seen/treated for: Back Cellulitis You had these procedures: no procedures were performed Watch for these problems: Fever, Chest pain, Shortness of Breath, chills Special Instructions: Continue to offload from back, application of Duoderm dressing on the back which should be changed every 2-3 days. Diet Continue normal diet: No (Puree, [place] thick diet) Recommended Diet: Gluten Free, Puree, with nectar thick liquids Activity Full Activity/No Limits: Yes (As tolerated) Acute Coronary Syndrome Inclusion Criteria At DC or during hospital stay patient has or had the following: ACS DIAGNOSIS No Discharge Core Measures Meds if any: Prescribed or Continued at Discharge Meds if any: NOT Prescribed or Continued at Discharge Congestive Heart Failure Inclusion Criteria At DC or during hospital stay patient has or had the following: CHF DIAGNOSIS No Discharge Core Measures Meds if any: Prescribed or Continued at Discharge Meds if any: NOT Prescribed or Continued at Discharge Cerebrovascular accident Inclusion Criteria At DC or during hospital stay patient has or had the following: CVA/TIA Diagnosis No Discharge Core Measures Meds if any: Prescribed or Continued at Discharge Meds if any: NOT Prescribed or Continued at Discharge Venous thromboembolism Inclusion Criteria VTE Diagnosis No VTE Type NONE VTE Confirmed by (Test) NONE Discharge Core Measures - Per Current guidelines, there needs to be overlap - treatment for the first 5 days of Warfarin therapy. - If discharged on Warfarin prior to 5 days of - overlap therapy, the patient will need to be - assessed for post discharge needs including - *Post discharge parental anticoagulation - *Warfarin and/or parental anticoagulation education - *Follow up date to check INR post discharge At least 5 days overlap therapy as Inpatient Yes Meds if any: Prescribed or Continued at Discharge Note: Overlap Therapy is Warfarin and Anticoagulant Meds if any: NOT Prescribed or Continued at Discharge
[2017-10-12 14:21] VITALS: BP 100/56
[2017-10-12 20:34] VITALS: BP 118/56
[2017-10-13 06:42] VITALS: BP 116/56
--- NOTE | 2017-10-13 08:34 | PN- Housestaff ---
See Addendum Subjective Follow-up For: Cellulitis Subjective: No acute events overnight, afebrile. Patient is complaining of back pain, denies fever, night sweats, chills Review of Systems Constitutional: Reports: see HPI. Objective Last 24 Hrs of Vital Signs/I&O Vital Signs Date Time Temp Pulse Resp B/P B/P Pulse O2 O2 Flow FiO2 Mean Ox Delivery Rate 10/13 0642 97.6 51 16 116/56 97 Room Air 10/13 0000 Room Air 10/12 2034 97.9 47 18 118/56 95 10/12 1600 Room Air 10/12 1421 97.6 52 20 100/56 98 Intake & Output 10/13 1600 10/13 0800 10/13 0000 Intake Total 240 100 Output Total 250 Balance -10 100 Intake, IV 100 Intake, Oral 240 Number 1 Bowel Movements Output, Urine 250 Physical Exam General Appearance: Alert, Oriented X3, Cooperative Skin: red, well-demarcated rash on rash, improving as compared to admission. 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 The states that patient has daily visiting health aide who manages his pressure sore however since past 4 days leading to the worsening of his pressure sore has worsened. The reported that today she noticed that the erythema had covered the his entire back, and is draining purulent fluid. Problem List: 1. Back Cellulitis 2. Chronic Pain Syndrome 3. Anemia #Back Cellulitis - has worsened since his last admission when adviced to offload from back and use Duoderm dressing changed every 2-3 days. History of chronic cellulitis with worsening. Elevated WBC - continue unasyn 1500mg day 3/7 - patient seen by wound consult- recommend formal dermatologic skin eval by skin culture - Bacitracin - continue to offload patient - PO Augmentin upon discharge X4 days to complete 7 day course #Chronic pain - Oxycodone 5mg - Tramadaol 50mg #Anemia: H/H is worsening since admission. Iron panel is indicative of ACD. Low Iron, TIBC, normal ferritin - f/u Fecal occult - f/ u Folate, B12 Plan to discharge patient home, will discharge with PO Augmentin 875. Patient has service to be resumed, continue to offload patient, continue bacitracin and dressing changes. Problem List: 1. Chronic cellulitis Pain Ratin Pain Location: back Pain Goal: Remain pain free Pain Plan: oxycodone Tomorrow's Labs & Rationales: n/a
[2017-10-13] MEDS ORDERED: AMOX-CLAV 875-1 EACH PO (09:05)
--- NOTE | 2017-10-13 12:46 | Discharge Summary ---
See Addendum Visit Information Visit Dates Admission Date: 10/10/17 Discharge Date: 10/13/17 Hospital Course Course Attending Physician: Tico Gloria MD Primary Care Physician: Fermín SMITH,Mo Serna Hospital Course: Mr. 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 The states that patient has daily visiting health aide who manages his pressure sore however since October 06 there has been alternative homemade nurse who has been responsible for the care, due to an adequate care there has been worsening of his pressure sores oon back. The reported that today she noticed that the erythema had covered the his entire back, and is draining purulent fluid. Patient has been immobile for quite some time now only moves from bed to recliner chair with assistance. ED vitals: Temperature 97.7, heart rate 65, respiratory rate 18, blood pressure 114/55, O2 sat 97% on room air ED labs: WBC 11.2, H/H 11.0/32.0, granulocyte 83.8, total protein 4.5, albumin 2.1, prealbumin 6.7, lactic acid 2.6 ED imaging 1.chest x-rayhazy opacity in the retrocardiac region of the left lower lobe from atelectasis or infiltrate. ED course Patient underwent local wound cleaning and application of Bactrim, wound care consult was placed for the morning. Given 1 dose of Unasyn in the ER. Patient started on pure and nectar thick liquid diet. Patient was admitted to general medicine General medicine course 1. Back cellulitispatient was treated with Unasyn 1500 mg for 3 days in hospital, patient was seen by wound care who recommended patient undergo formal dermatologic skin evaluation by skin culture. Over admission patient cellulitis had decreased in size and appearance. Patient remained afebrile during current admission. Blood cultures negative 2. Nares negative for MRSA 2. Chronic pain patient was continued on tramadol and oxycodone 3. Anemia H&H dropped to 8.1, 22.4 on September 22 from admission. Patient was asymptomatic fecal occult negative labs were indicative of anemia of chronic disease. Patient had low iron, low TIBC and normal ferritin. Fecal occult was negative. Patient was evaluated by speech therapy be with bedside swallow-recommendations are puree diet with nectar thick liquids. Patient was discharged home on 10/13/17 with amoxicillin clavulanic acid 875 p.o. twice daily for 4 days. Patient was given referral to follow with Dr. Muniz in 2 weeks Allergies: Coded Allergies: NO KNOWN ALLERGIES (10/27/14) Disposition Summary Disposition Principal Diagnosis: Back cellulitis Additional Diagnosis: Chronic pain Anemia Discharge Disposition: home health services Discharge Instructions General Discharge Information Code Status: Full Code Patient's Diet: Pure, nectar thick liquids Patient's Activity: As tolerated Follow-Up Instructions/Appts: Follow-up PCP, follow-up with Dr. Muniz in 2 weeks Medications at Discharge Discharge Medications: Continue taking these medications: Metformin HCl (Metformin HCl) 500 MG TABLET 1 Tablet ORAL TWICE DAILY Comments: NOT GIVEN IN HOSPITAL Pantoprazole Sodium (Pantoprazole Sodium) 40 MG TABLET.DR 1 Tablet ORAL TWICE DAILY Qty = 90 Comments: NOT GIVEN IN HOSPITAL Cyanocobalamin (Vitamin B-12) 1,000 MCG TABLET 1 Tablet ORAL DAILY Comments: NOT GIVEN IN HOSPITAL Melatonin (Melatonin) 5 MG CAPSULE 1 Tablet ORAL DAILY as needed for Insomnia Qty = 30 Comments: NOT GIVEN IN HOSPITAL Acetaminophen (Tylenol Arthritis) 650 MG TABLET.ER 1 Tablet ORAL EVERY 4-6 HOURS NEEDED as needed for Pain Qty = 30 Comments: Last Taken: 10/12/17 Time: 6:35AM Lidocaine (Lidoderm) 5 % ADH..PATCH 1 Patch On the skin DAILY as needed for Back Pain Qty = 30 Instructions: may wear up to 12 hours Comments: NOT GIVEN IN HOSPITAL Hydrocodone/Acetaminophen (Hydrocodon-Acetaminoph 7.5-325) 7.5 MG-325 MG TABLET 1 Tablet ORAL THREE TIMES A DAY NEEDED as needed for PAIN Qty = 60 Comments: NOT GIVEN IN HOSPITAL Start taking the following new medications: Amoxicillin/Clavulanate Potass (Amox-Clav 875-125 MG Tablet) 875 MG-125 MG TABLET 1 Tablet ORAL TWICE DAILY Qty = 8 No Refills Comments: NOT GIVEN IN HOSPITAL Copies To: Fermín SMITH,Mo Serna
== END 2017-10-13 12:10 | disposition home health service (06) | DRG 603 ==
LOC: ERH 11:52 → ERHI 15:26 → 2NA 15:26 → ENRESERV 16:31 → ENTRNSPT 17:11 → EDTRNSPT 17:33 → EDTRNSPTSTS 17:33 → 2NA 17:44 → CMPTRNSPT 17:57 → 2NA 10-13 12:10
PROVIDERS: Emergency Medicine; Hospitalist; Internal Medicine
DX: L03.312 Cellulitis of back [any part except buttock and flank] (principal); Z86.73 Personal history of transient ischemic attack (TIA), and cerebral infarction without residual deficits; F03.90 Unspecified dementia, unspecified severity, without behavioral disturbance, psychotic disturbance, mood disturbance, and anxiety; E11.42 Type 2 diabetes mellitus with diabetic polyneuropathy; Z79.84 Long term (current) use of oral hypoglycemic drugs; K21.9 Gastro-esophageal reflux disease without esophagitis; G89.29 Other chronic pain; L89.109 Pressure ulcer of unspecified part of back, unspecified stage; D63.8 Anemia in other chronic diseases classified elsewhere; R13.10 Dysphagia, unspecified
CPT/HCPCS: 2NAP; 36592; 71045; 82436; 87040; 93005; 93010; 96360; 97161-GP; 97530-GO; J1644

== ENCOUNTER 2017-10-31 18:55 | Inpatient (IN) | payer OTHER ==
[~2017-10-31] VITALS: Ht 190.5 cm; Wt 68.3 kg
[~2017-10-31 18:55] MED LIST changes: +AMOX-CLAV 500-1 EACH PO; +HYDROCODON-ACE1 EAC3 PO
--- NOTE | 2017-10-31 19:36 | ED SKIN/ALLERGY COMPLAINT ---
History of Present Illness General Chief Complaint: Back sores/Cellulitis Stated Complaint: BIBA BEDSORE Source: patient (), family Exam Limitations: unable to give history, physical impairment Vital Signs & Intake/Output Vital Signs & Intake/Output Vital Signs Date Time Temp Pulse Resp B/P B/P Pulse O2 O2 Flow FiO2 Mean Ox Delivery Rate 10/311 98.4 96 16 126/64 95 Room Air 10/31 1908 Room Air 10/31 1859 97.3 88 18 125/61 95 Room Air Allergies Coded Allergies: NO KNOWN ALLERGIES (10/27/14) Reconcile Medications Acetaminophen (Tylenol Arthritis) 650 MG TABLET.ER 1 TAB PO Q4-6 PRN PRN Pain Amoxicillin/Clavulanate Potass (Amox-Clav 875-125 MG Tablet) 875 MG-125 MG TABLET 1 TAB PO BID Infection Cyanocobalamin (Vitamin B-12) 1,000 MCG TABLET 1 TAB PO DAILY SUPPLEMENT ( Reported) Hydrocodone/Acetaminophen (Hydrocodon-Acetaminoph 7.5-325) 7.5 MG-325 MG TABLET 1 TAB PO TIDPRN PRN PAIN (Reported) Lidocaine (Lidoderm) 5 % ADH..PATCH 1 PAT TOP DAILY PRN Back Pain may wear up to 12 hours Melatonin 5 MG CAPSULE 1 TAB PO DAILY PRN Insomnia Metformin HCl 500 MG TABLET 1 TAB PO BID DM (Reported) Pantoprazole Sodium 40 MG TABLET.DR 1 TAB PO BID GI (Reported) Triage Note: 87 YEAR OLD MALE PATRICK FROM HOME WITH INCREASING BACK PAIN DUE BEDSORE. PATIENT IS AWAKE, ALERT, ORIENTED BUT FORGETFUL. PALLOR NOTED. EMS STATES PATIENT WAS HERE A FEW WEEKS AGO. SKIN IS WARM AND DRY. Triage Nurses Notes Reviewed? yes Unable To Obtain Hx Due To: patient confusion Onset: Gradual Duration: week(s): Timing: recent history Severity: severe Severity Numbers: 9 Location: torso, generalized HPI: 87-year-old bedridden male presents via ambulance accompanied by for chronic bedsores and worsening cellulitis. Patient has a known history of dementia, CVA episode in 2000, and diabetes. History provided by , states he's been complaining at home of worsening back pain 2/2 sores. Patient has had alternating visiting nurses since October 06 since regular nurse has been on vacation. Wounds have worsened during this time. He was recently admitted for same issue November 10. denies recent fever or strange behavior. (Jameson Junior) Past History Travel History Traveled to [place] past 21 day No Medical History Any Pertinent Medical History? see below for history Neurological: CVA, dementia, peripheral neuropathy EENT: NONE Cardiovascular: NONE Respiratory: NONE Gastrointestinal: BLEEDING ULCER Hepatic: NONE Renal: NONE Musculoskeletal: osteoarthritis, GOUT SPINAL STENOSIS Psychiatric: NONE Endocrine: BORDERLINE DM Blood Disorders: NONE Cancer(s): NONE COMMUNICATIONS MANAGER/Reproductive: NONE History of MRSA: No History of VRE: No History of CDIFF: No Surgical History Surgical History: HERNIA REPAIR Psychosocial History Who do you live with Spouse Services at Home Home Health Aide What is your primary language Samoan Tobacco Use: Never used Family History Family History, If Any: MOTHER Relation not specified for: FH ischemic heart disease Hx Contributory? Yes (Jameson Junior) Review of Systems Review of Systems Constitutional: Reports: see HPI. EENTM: Denies: blurred vision, double vision, visual changes. Respiratory: Denies: cough, hemoptysis, short of breath. Cardiovascular: Denies: chest pain, palpitations. GI: Denies: abdominal pain. Musculoskeletal: Reports: back pain, muscle stiffness. Skin: Reports: see HPI, erythema, rash. Neurological/Psychological: Reports: confusion, dementia. (Jameson Junior) Physical Exam Physical Exam General Appearance: alert, awake, anxious, cachetic, mild distress, thin Head: atraumatic, normal appearance Eyes: Bilateral: normal appearance, EOMI. Ears, Nose, Throat: hearing grossly normal Respiratory: normal breath sounds, chest non-tender Cardiovascular: regular rate/rhythm Extremities: normal inspection, limited range of motion Skin: rash Skin Problem Location: generalized, torso Skin Problem Character: erythema, rash Comments: Rashes are not warm to touch. Diagram Body: 1) Scaling, dark red erythemic rash 2) Erythematous rash with some clear drainage (Jameson Junior) Progress Differential Diagnosis: abscess/cellulitis, allergic reaction, contact dermatitis, drug reaction, erythema multiforme, meningitis/sepsis, shingles Plan of Care: Orders Procedure Date/time Status Nothing by Mouth 11/01 B Active Saline Lock 10/31 2305 Active Misc Message 10/31 2305 Active ED Holding Orders 10/31 2305 Active Admit to inpatient 08/13 2306 Active Vital Signs 10/31 Active Code Status 10/31 2305 Active LACTIC ACID 11/01 2231 Active BLOOD CULTURE 11/01 1931 Active URINALYSIS 11/01 1931 Complete LACTIC ACID 11/01 1931 Complete WESTERGREN SED RATE 11/01 1931 Complete COMPREHENSIVE METABOLIC PANEL 11/01 1931 Complete CBC WITHOUT DIFFERENTIAL 11/01 1931 Complete EKG 11/01 1931 Active Current Medications Sig/Alverto Start time Last Medication Dose Stop Time Status Admin Ampicillin Sodium/ 3,000 MG ONCE ONE 10/31 2014 CAN Sulbactam Sodium 11/01 2043 (Unasyn) Sodium Chloride 100 ML (Normal Saline 0.9%) Laboratory Tests 10/31/172239: Urine Color YEL, Urine Clarity CLEAR, Urine pH 6.0, Ur Specific [place] 1.025, Urine Protein NEG, Urine Ketones TRACE H, Urine Nitrite NEG, Urine Bilirubin NEG, Urine Urobilinogen 1.0, Ur Leukocyte Esterase NEG, Ur Microscopic EXAM NOT REQUIRED, Urine Hemoglobin NEG, Urine Glucose NEG 10/31/172010: Anion Gap 5, Estimated GFR > 60, BUN/Creatinine Ratio 28.8 H, Glucose 125 H, Lactic Acid 1.8, Calcium 8.2 L, Total Bilirubin 0.7, AST 30, ALT 33, Alkaline Phosphatase 91, Total Protein 5.4 L, Albumin 2.7 L, Globulin 2.7, Albumin/ Globulin Ratio 1.0 L, CBC w Diff NO MAN DIFF REQ, RBC 3.38 L, MCV 101.0 H, MCH 33.8 H, MCHC 33.5, RDW 14.0, MPV 8.3, Gran % 81.5 H, Lymphocytes % 14.8 L , Monocytes % 2.0, Eosinophils % 1.4, Basophils % 0.3, Absolute Granulocytes 9.6 H, Absolute Lymphocytes 1.7, Absolute Monocytes 0.2, Absolute Eosinophils 0.2, Absolute Basophils 0, ESR W[place]gren 87 H Microbiology 10/31 2036 BLOOD: Blood Culture - RECD 10/31 2010 BLOOD: Blood Culture - RECD History and physical exam consistent with chronic bedsores and chronic cellulitis of entire back and left hip. Additional posterior calcaneus sores also seen. No acute process suspected as notes size and color of rash has been consistent for months and the skin is cool to touch. Very low suspiciaon for sepsis considering slightly elevated white count and pt is afebrile. However, Patient is thought to be not safe at home/properly cared for. Plan discussed and confirmed with Dr. Knapp to consult for short-term rehabilitation/Social Work pending other labs. ABX in ED thought to be unnecessary at this time. Pt signed out to Dr. Knapp at this time (20:55) Hand-Off Endorsed To: Kaden Knapp MD Endorsed Time: 2052 Pending: consult, labs, other (Jameson Junior) Departure Departure Disposition: STILL A PATIENT Condition: Stable Referrals: Fermín SMITH,Mo Serna (PCP/Family) Departure Forms: Customer Survey General Discharge Information (Jameson Junior) Departure Clinical Impression Primary Impression: Decubitus ulcers Admission Note Spoke With: Kang Arnett MD Documentation of Exam: Documentation of any treatments & extenuating circumstances including Concerns Regarding Discharge (functional status, medication knowledge or non-compliance, living conditions, etc.) that warrant an admission rather than observation: pt with chronic decubiti, completed a course of abx, now with continued discomfort and ulcerations.... Given persistently elevated ESR, osteo should be considered... pt merits MRI, consider biopsy, consider ID consult. He may require long term care pharmacist abx w/ picc line. PA/ACCOUNTS RECEIVABLE ANALYST Co-Sign Statement Statement: ED Attending supervision documentation- [x] I saw and evaluated the patient. I have also reviewed all the pertinent lab results and diagnostic results. I agree with the findings and the plan of care as documented in the PA's/ACCOUNTS RECEIVABLE ANALYST's documentation. [] I have reviewed the ED Record and agree with the PA's/ACCOUNTS RECEIVABLE ANALYST's documentation. [] Additions or exceptions (if any) to the PAs/ACCOUNTS RECEIVABLE ANALYST's note and plan are summarized below: [] (Kaden Knapp MD) ED Attending Observation Initial Observation Note: I have seen and personally examined ERIN MALDONADO on 10/31/17 at 2051. I agree with the current emergency department documentation. The disposition (admission or discharge) is uncertain at this time, he needs a period of observation for the following reason(s): The ED Nurse caring for this patient has been personally informed as to what the patient is being observed for. (Jameson Junior)
[2017-10-31 20:18] LABS: ABSOLUTE BASOPHIL COUNT 0 /CUMM (0.0-0.2); ABSOLUTE EOSINOPHIL COUNT 0.2 /CUMM (0.0-0.7); ABSOLUTE GRANULOCYTE CT 9.6 /CUMM (1.4-6.5); ABSOLUTE LYMPH COUNT 1.7 /CUMM (1.2-3.4); ABSOLUTE MONOCYTE COUNT 0.2 /CUMM (0.10-0.60); BASOPHIL % 0.3 % (0.0-2.0); EOSINOPHIL % 1.4 % (0-5); GRANULOCYTE % 81.5 % (42.2-75.2); HEMATOCRIT 34.1 % (42-52); MEAN CORPUSCULAR HGB 33.8 PG (27.0-31.0); MEAN CORPUSCULAR HGB CONC 33.5 G/DL (33.0-37.0); MEAN PLATELET VOLUME 8.3 FL (7.4-10.4); PLATELET COUNT 271 /CUMM (130-400); RED BLOOD CELL CT 3.38 /CUMM (4.70-6.10); WHITE BLOOD CELL COUNT 11.8 /CUMM (4.8-10.8)
--- NOTE | 2017-10-31 23:46 | History & Physical ---
Dagoberto Hdz 10/31/17 3945: General Information and HPI MD Statement: I have seen and personally examined ERIN MALDONADO and documented this H&P. The patient is a 87 year old M who presented with a patient stated chief complaint of [back pain]. Exam Limitations: patient's age, confusion History of Present Illness: 87-year-old bedridden male presents via ambulance accompanied by for chronic bedsores and worsening cellulitis. Patient has a known history of dementia, CVA episode in 2000, and diabetes. Pt was unaccompanied by , Teresa/ Anupama, history was obtained from chart review: "History provided by , states he's been complaining at home of worsening back pain 2/2 sores. Patient has had alternating visiting nurses since October 06 since regular nurse has been on vacation. Wounds have worsened during this time. He was recently admitted for same issue October 10-. denies recent fever or strange behavior." Recieved Unasyn on previous admission and completed outpatient augmentin for 4 days (finished 10/17/17), was supposed to follow up with Dr Muniz for wound care. Patient continually states that his back hurts on interview. Afebrile at home. Pt did not respond to any further questioning on interview, although did not appear to be in any acute extremis and complied with physical exam maneuvers. Allergies/Medications Allergies: Coded Allergies: NO KNOWN ALLERGIES (10/27/14) Past History Travel History Traveled to [place] past 21 day No Medical History Neurological: CVA, dementia, peripheral neuropathy EENT: NONE Cardiovascular: NONE Respiratory: NONE Gastrointestinal: BLEEDING ULCER Hepatic: NONE Renal: NONE Musculoskeletal: osteoarthritis, GOUT SPINAL STENOSIS Psychiatric: NONE Endocrine: BORDERLINE DM Blood Disorders: NONE Cancer(s): NONE CYBER DEFENSE INCIDENT RESPONDER/Reproductive: NONE History of MRSA: No History of VRE: No History of CDIFF: No Surgical History Surgical History: HERNIA REPAIR Past Family/Social History Family History Relations & Conditions if any MOTHER Relation not specified for: FH ischemic heart disease Psychosocial History Who Do You Live With? spouse Services at Home: Home Health Aide Primary Language: Cameroonian Functional Ability Ambulation: non-ambulatory, Patient previously walked with walker, but has been unable to ambulate for past 3 weeks due to foot problems. Review of Systems Review of Systems Constitutional: Reports: see HPI. Denies: fever, weakness. Exam & Diagnostic Data Last 24 Hrs of Vital Signs/I&O Vital Signs Date Time Temp Pulse Resp B/P B/P Pulse O2 O2 Flow FiO2 Mean Ox Delivery Rate 11/01 0314 98.1 87 22 130/61 97 Room Air 10/31 2355 Room Air 10/31 2211 98.4 96 16 126/64 95 Room Air 10/31 1908 Room Air 10/31 1859 97.3 88 18 125/61 95 Room Air Intake & Output 11/01 0800 11/01 0000 10/31 1600 Intake Total 0 Output Total 0 Balance 0 Intake, Oral 0 Output, Urine 0 Patient 170 lb Weight Weight Reported by Patient Measurement Method Physical Exam General Appearance Alert, Cooperative, No Acute Distress Skin sacral decubiti L sacrum, dressing C/D/I no fluctuance noted; Large erythematous plaque covering entirety of patients back with satellite lesions, tender to palpation Skin Temp/Moisture Exam: Warm/Dry Cardiovascular Regular Rate, Normal S1, Normal S2 Lungs Clear to Auscultation, Normal Air Movement Abdomen Soft, No Tenderness Neurological Sensation Intact Extremities No Edema Body Front and Back (Adult) 1) erythematous plaque tender 2) sacral decubiti stage 2/3 Last 24 Hrs of Labs/Jerel: Laboratory Tests 10/31/17 2240: Urine Color YEL, Urine Clarity CLEAR, Urine pH 6.0, Ur Specific [place] 1.025, Urine Protein NEG, Urine Ketones TRACE H, Urine Nitrite NEG, Urine Bilirubin NEG, Urine Urobilinogen 1.0, Ur Leukocyte Esterase NEG, Ur Microscopic EXAM NOT REQUIRED, Urine Hemoglobin NEG, Urine Glucose NEG 10/31/172010: Anion Gap 5, Estimated GFR > 60, BUN/Creatinine Ratio 28.8 H, Glucose 125 H, Lactic Acid 1.8, Calcium 8.2 L, Total Bilirubin 0.7, AST 30, ALT 33, Alkaline Phosphatase 91, Total Protein 5.4 L, Albumin 2.7 L, Globulin 2.7, Albumin/ Globulin Ratio 1.0 L, CBC w Diff NO MAN DIFF REQ, RBC 3.38 L, MCV 101.0 H, MCH 33.8 H, MCHC 33.5, RDW 14.0, MPV 8.3, Gran % 81.5 H, Lymphocytes % 14.8 L , Monocytes % 2.0, Eosinophils % 1.4, Basophils % 0.3, Absolute Granulocytes 9.6 H, Absolute Lymphocytes 1.7, Absolute Monocytes 0.2, Absolute Eosinophils 0.2, Absolute Basophils 0, ESR Westergren 87 H Microbiology 10/31 2036 BLOOD: Blood Culture - RECD 10/31 2010 BLOOD: Blood Culture - RECD Assessment/Plan Assessment: Ms. Maldonado is a 87yo M w/ PMH of chronic bedsores, dementia, hx of CVA in 2000, T2DM, HFrEF presented to ER BIBA from home w/ cc of increasing back pain 2 /2 chronic bedsore. Recently admitted for same issues and completed antibiotic treatment. Had mild leukocytosis without fevers; ESR is elevated but decreased from previous admission (103 in September; 87 today) without MRI on last admission. Problem list/Assessment/Hospital Course: #Chronic decubitus ulcers/cellulitis? 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 w/ satellite lesions #Hyponatremia, likely 2/2 dehydration #PMH of chronic bedsores, dementia, hx of CVA in 2000, T2DM, HFrEF #Decubiti ulcer vs cellulitis vs osteomyelitis -Dressing c/d/i on L sacrum; wound consult in AM -Off abx at this time -Consider ID consult in AM -Consider MRI in AM with elevated ESR -F/u cultures #Fungal infection (satellite lesions, erythematous plaque on back) -Nystatin powder; consider oral antifungals in AM or per ID #DM -ISS #Chronic medical conditions -Please confirm code status and medications for day team -Continue home meds DVT PPX IV access Heart Healthy Diet Full code pending confirmation Dispo As Ranked By This Provider Problem List: 1. Decubitus ulcers Core Measures/Misc (12/05) Acute Coronary Syndrome ACS Diagnosis: No Congestive Heart Failure Congestive Heart Failure Diagnosis No Cerebrovascular Accident CVA/TIA Diagnosis: No VTE (View Protocol) VTE Risk Factors Age>40 No Mechanical VTE Prophylaxis d/t N/A MechProphylax Ordered No VTE Pharm Prophylaxis d/t NA PharmProphylax ordered Sepsis (View protocol) Sepsis Present: No If YES complete Sepsis Event Note If YES complete Sepsis Event Note Oneyda Thomas 10/31/17 0051: General Information and HPI Allergies/Medications Home Med list Acetaminophen (Tylenol Arthritis) 650 MG TABLET.ER 1 TAB PO Q4-6 PRN PRN Pain Cyanocobalamin (Vitamin B-12) 1,000 MCG TABLET 1 TAB PO DAILY SUPPLEMENT ( Reported) Hydrocodone/Acetaminophen (Hydrocodon-Acetaminoph 7.5-325) 7.5 MG-325 MG TABLET 1 TAB PO TIDPRN PRN PAIN (Reported) Melatonin 5 MG CAPSULE 1 TAB PO DAILY PRN Insomnia Metformin HCl 500 MG TABLET 1 TAB PO BID DM (Reported) Pantoprazole Sodium 40 MG TABLET.DR 1 TAB PO BID GI (Reported) Core Measures/Misc (12/05) Sepsis (View protocol) If YES complete Sepsis Event Note If YES complete Sepsis Event Note Resident Review Statement Resident Statement: examined this patient, discussed with internal control manager, agreed with internal control manager, discussed with family, reviewed EMR data (avail), discussed with nursing , discussed with case mgmt, reviewed images, amended to note Other Findings: Ms. Maldonado is a 87yo M w/ PMH of chronic bedsores, dementia, hx of CVA in 2000, T2DM, HFrEF presented to ER BIBA from home w/ cc of increasing back pain 2 /2 chronic bedsore. Patient's dementia and forgetfullness provided limited history, w/ most history given by at bedside that patient had bedsores worsening since 10/06/2017 when his regular nurse was out for vacation and a new nurse was on duty. Patient was recently admitted for similar symptoms 10/10-2017 who got treated w/ unasyn/augmentin w/o OR event. No MRI from previous admissions. Patient is demented during our clinical interaction however endorsed "my back hurts", cooperative on examination. Rest of HPI as above. On admission, Vitals: stable afebrile, tachycardioa 88-96, BP stable, 95 RA Physical exam as above. Pertinent findings include back sores w/ perfuse redness /erythema however no significant elevation of temp/discharge, with satellite lesions spreading out from the sore, resembling possible fungal infection. L hip ulcer in dressing care -CBC: leukocytosis 11.8, H/H 11.4/34.1, PLT 271 -CMP: Hyponatremia 133, ESR 87 decreased from 103 from 09/2017, lactic acid 1.8, Hypocalcemia 8.2 corrected to Albumin 2.7 WNL -UA/Microbiology: clear UA. Previous urine cultured E.Coli, no other positive cultures from blood/wound. -EKG: changed from previous with paired PVCs, unclear etiology -Last Echo: [address] Lake, EF 50% w/ global hypokinesis -Interventions in ER: Percocet x 2 tabs Problem list/Assessment/Hospital Course: #Chronic decubitus ulcers/cellulitis? 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 - Novolog SS/AccuChek TIDAC - PT/OT in the AM per primary team - Keep off antibiotics pending possible procedure/wound culture in the AM - Continue protonix PO qAC per home meds, HOLDING hypoglycemics - Pending wound consult in the AM. - Consider ID consult per primary team. - Consider MRI to r/o osteomyelitis. - Pending cultures including blood/potential wound culture in the AM. - Pain per pathway DVT prophylaxis Lovenox + ALPS Heart Healthy Diet IV Access: Peripheral IV Full Code, pending code status confirmation from . Dispo: STR/Home Health service Kang Arnett MD 11/01/17 0448: Core Measures/Misc (12/05) Sepsis (View protocol) If YES complete Sepsis Event Note If YES complete Sepsis Event Note Attending MD Review Statement Attending Statement Attending MD Statement: examined this patient, discuss w/resident/PA/PARKING METER MECHANIC, agreed w/resident/PA/PARKING METER MECHANIC Attending Assessment/Plan: Patient is seen and examined independently by me. Care plan discussed with electromedical equipment repairer and resident. I agree with the physical exam findings and plan of care as outlined above with the following changes and additions. 87 yo M with history of dementia, CVA, DM, GI bleed from esophageal ulcer, spinal stenosis, chronic pressure ulcer in mid thoracic back (superficial) and left sacral area (stage 2-3), presents with generalized weakness and increased low back pain. Patient was admitted 10/10-10/13/17 for cellulitis on his back. He was treated with Unasyn and discharged on Augmentin which was finished on 10/17. Patient has no fever at home. According to his , the left sacral ulcer has worsen. In the ED, patient is afebrile. WBC 11.8 (6.2 on 10/12/17). ESR 87 (103 on ). UA negative nitrite and esterase. Whole back has erythema likely from Zarya. Left sacral decub dressing intact and clean with no drainage but there cellulitis changes around the left sacral ulcer. Patient is admitted to [facility] for left sacral ulcer infection with surrounding cellulitis, r/o osteomyelitis. Wound consult and ID consult. Initate antibiotic as soon as pending wound culture, procedure and/or biopsy are done. Consider MRI to r/o osteomyelitis. Nystatin to back. aKng Arnett MD FACP
[2017-11-01 03:46] VITALS: BP 130/61
[2017-11-01 07:06] LABS: ABSOLUTE EOSINOPHIL COUNT 0.1 /CUMM (0.0-0.7); ABSOLUTE LYMPH COUNT 2.3 /CUMM (1.2-3.4); ABSOLUTE MONOCYTE COUNT 0.5 /CUMM (0.10-0.60); PLATELET COUNT 217 /CUMM (130-400); RBC DISTRIBUTION WIDTH 13.8 % (11.5-14.5)
[2017-11-01 07:09] LABS: ABSOLUTE BASOPHIL COUNT 0.2 /CUMM (0.0-0.2); ABSOLUTE GRANULOCYTE CT 4.9 /CUMM (1.4-6.5); EOSINOPHIL % 1.7 % (0-5); GRANULOCYTE % 61.2 % (42.2-75.2); MEAN CORPUSCULAR VOLUME 100.1 FL (80.0-94.0); MEAN PLATELET VOLUME 8.5 FL (7.4-10.4); RED BLOOD CELL CT 2.76 /CUMM (4.70-6.10)
[2017-11-01 07:12] LABS: HEMATOCRIT 27.6 % (42-52)
--- NOTE | 2017-11-01 08:26 | PN- Housestaff ---
Milton Martinez 11/01/17 0821: Subjective Follow-up For: Decubitus ulcer, left-sided Lower Extremity Fungal rash, continuous upper & lower back Subjective: Afebrile overnight. Patient is awake and eating his breakfast. Patient is demented at baseline. Patient's is not currently in the room and will wait for her later to understand the progress of the patient. Patient otherwise is sitting comfortably in his bed. ID and Wound care will come by to see him as well. Patient otherwise currently only receiving Nystatin powder for his erythematous rash on his back. Review of Systems Constitutional: Reports: see HPI. Objective Last 24 Hrs of Vital Signs/I&O Vital Signs Date Time Temp Pulse Resp B/P B/P Pulse O2 O2 Flow FiO2 Mean Ox Delivery Rate 11/01 0819 97.2 79 20 125/65 98 Room Air 11/01 0346 98.1 87 22 130/61 97 11/01 0314 98.1 87 22 130/61 97 Room Air 10/31 2355 Room Air 10/31 2211 98.4 96 16 126/64 95 Room Air 10/31 1908 Room Air 10/31 1859 97.3 88 18 125/61 95 Room Air Intake & Output 11/01 1600 11/01 0800 11/01 0000 Intake Total 0 Output Total 0 Balance 0 Intake, Oral 0 Output, Urine 0 Patient 170 lb 170 lb Weight Weight Reported by Patient Measurement Method Physical Exam General Appearance: Alert, BASELINE DEMENTIA Skin: DECUBITUS ULCER, LEFT LATERAL PROXIMAL FEMUR, ERYTHEMATOUS RASH, ULCER FROM UPPER THORACIC TO LUMBAR REGION HEENT: Atraumatic Cardiovascular: Regular Rate, Normal S1, Normal S2 Lungs: Clear to Auscultation Abdomen: Soft, No Tenderness Extremities: No Edema Assessment/Plan Assessment: Shimon Mcallister is a 87yo M w/ PMH of chronic bedsores, dementia, hx of CVA in 2000, T2DM, HFrEF presented to ER BIBA from home w/ cc of increasing back pain 2 /2 chronic bedsore. Recently admitted for same issues and completed antibiotic treatment. Had mild leukocytosis without fevers; ESR is elevated but decreased from previous admission (103 in September; 87 today) without MRI on last admission. Problem list/Assessment/Hospital Course: #Chronic decubitus ulcers/cellulitis? 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 Nystatin applied 4 times daily with frequent turning -Consider MRI due to elevated ESR -F/u cultures #Fungal infection (satellite lesions, erythematous plaque on back) -Nystatin powder 4 times daily application #DM -ISS #Chronic medical conditions -Please confirm code status and medications for day team -Continue home meds DVT PPX IV access Heart Healthy Diet Full code pending confirmation Dispo Problem List: 1. Decubitus ulcers Pain Ratin Pain Location: na Pain Goal: Remain pain free Pain Plan: na Tomorrow's Labs & Rationales: routine Tico Gloria MD 11/01/17 1434: Attending MD Review Statement Attending Statement Attending MD Statement: examined this patient, discuss w/resident/PA/MARINE MAMMAL TRAINER, agreed w/resident/PA/MARINE MAMMAL TRAINER, reviewed EMR data (avail), amended to note Attending Assessment/Plan: The patient was seen and discussed with house staff. Appreciate ID input. The patient's back appears improved since last admission. Agree with no IV antibiotics at present and will treat with Nystatin. Await wound care input. The patient's mental status is baseline. He said to me that his usual medical supply technician was away for a few days (not sure if this is reliable). His last admission was related to a difference in care due to his regular aide being away. Will clarify with his if there were any acute changes in his status.
--- NOTE | 2017-11-01 12:57 | Cons- Infect Disease ---
General Information and HPI Consulting Request Date of Consult: 11/01/17 Requested By: Tico Gloria MD Reason for Consult: Rule out cellulitis of the back Source of Information: patient, old records Exam Limitations: dementia History of Present Illness: This is an 87-year-old man with dementia, bedridden, with a history of diabetes, status post CVA 17 years prior to admission, with chronic back pain, hospitalized 3 weeks prior to admission with a cellulitis of the back, with temperatures and white blood cell count normal, treated with Unasyn for 3 days and discharged on Augmentin for 4 more days, admitted on October 31 after he was brought to the emergency room because of increasing back pain. On admission he was afebrile. Laboratory data revealed a white blood cell count of 11.8, BUN/ creatinine 23 and 0.8, with normal liver enzymes. Urinalysis negative. He was followed off antibiotics and has remained afebrile. Presently he does report back pain but is unable to provide any further history. Allergies/Medications Allergies: Coded Allergies: NO KNOWN ALLERGIES (10/27/14) Home Med List: Acetaminophen (Tylenol Arthritis) 650 MG TABLET.ER 1 TAB PO Q4-6 PRN PRN Pain Cyanocobalamin (Vitamin B-12) 1,000 MCG TABLET 1 TAB PO DAILY SUPPLEMENT ( Reported) Hydrocodone/Acetaminophen (Hydrocodon-Acetaminoph 7.5-325) 7.5 MG-325 MG TABLET 1 TAB PO TIDPRN PRN PAIN (Reported) Melatonin 5 MG CAPSULE 1 TAB PO DAILY PRN Insomnia Metformin HCl 500 MG TABLET 1 TAB PO BID DM (Reported) Pantoprazole Sodium 40 MG TABLET.DR 1 TAB PO BID GI (Reported) Past History Travel History Traveled to [place] past 21 day No Medical History Neurological: CVA, dementia, peripheral neuropathy EENT: NONE Cardiovascular: NONE Respiratory: NONE Gastrointestinal: BLEEDING ULCER Hepatic: NONE Renal: NONE Musculoskeletal: osteoarthritis, GOUT SPINAL STENOSIS Psychiatric: NONE Endocrine: BORDERLINE DM Blood Disorders: NONE Cancer(s): NONE PROFESSOR OF PATHOLOGY/Reproductive: NONE History of MRSA: No History of VRE: No History of CDIFF: No Isolation History: Standard Surgical History Surgical History: HERNIA REPAIR Family History Relations & Conditions If Any: MOTHER Relation not specified for: FH ischemic heart disease Psychosocial History Who Do You Live With? spouse Services at Home: Home Health Aide Primary Language: Algerian Smoking Status: Never Smoked Functional Ability Ambulation: non-ambulatory, Patient previously walked with walker, but has been unable to ambulate for past 3 weeks due to foot problems. Review of Systems Comments Unobtainable Exam & Diagnostic Data Last 24 Hrs of Vital Signs/I&O Vital Signs Date Time Temp Pulse Resp B/P B/P Pulse O2 O2 Flow FiO2 Mean Ox Delivery Rate 11/01 0819 97.2 79 20 125/65 98 Room Air 11/01 0346 98.1 87 22 130/61 97 11/01 0314 98.1 87 22 130/61 97 Room Air 10/31 2355 Room Air 10/31 2211 98.4 96 16 126/64 95 Room Air 10/31 1908 Room Air 10/31 1859 97.3 88 18 125/61 95 Room Air Intake & Output 11/01 1600 11/01 0800 11/01 0000 Intake Total 0 Output Total 0 Balance 0 Intake, Oral 0 Output, Urine 0 Patient 170 lb 170 lb Weight Weight Reported by Patient Measurement Method Physical Exam Other Physical Findings: He is awake and alert, minimally verbal and confused, but in no acute distress. He is afebrile. Skin reveals a candidal appearing rash over the back, with a small midline ulceration in the thoracic area; small ulcerations over the right shoulder, right hip and lateral aspect of the right foot with no surrounding inflammation. HEENT exam is negative. Neck is supple with no adenopathy. Lungs are clear. Heart regular rhythm with no murmur. Abdomen is soft, nontender with positive bowel sounds. Back no CVA tenderness. Extremities no cyanosis, clubbing or edema. Neuro is without focality. Last 24 Hours of Lab Results: Laboratory Tests 11/01 10/31 0650 2240 Chemistry Sodium (137 - 145 mmol/L) 136 L Potassium (3.5 - 5.1 mmol/L) 4.5 Chloride (98 - 107 mmol/L) 105 Carbon Dioxide (22 - 30 mmol/L) 25 Anion Gap (5 - 16) 6 BUN (9 - 20 mg/dL) 24 H Creatinine (0.7 - 1.2 mg/dL) 0.8 Estimated GFR (>60 ml/min) > 60 BUN/Creatinine Ratio (7 - 25 %) 30.0 H Hematology CBC w Diff NO MAN DIFF REQ WBC (4.8 - 10.8 /CUMM) 8.0 RBC (4.70 - 6.10 /CUMM) 2.76 L Hgb (14.0 - 18.0 G/DL) 9.4 L Hct (42 - 52 %) 27.6 L MCV (80.0 - 94.0 FL) 100.1 H MCH (27.0 - 31.0 PG) 34.0 H MCHC (33.0 - 37.0 G/DL) 34.0 RDW (11.5 - 14.5 %) 13.8 Plt Count (130 - 400 /CUMM) 217 MPV (7.4 - 10.4 FL) 8.5 Gran % (42.2 - 75.2 %) 61.2 Lymphocytes % (20.5 - 51.1 %) 29.0 Monocytes % (1.7 - 9.3 %) 6.1 Eosinophils % (0 - 5 %) 1.7 Basophils % (0.0 - 2.0 %) 2.0 Absolute Granulocytes (1.4 - 6.5 /CUMM) 4.9 Absolute Lymphocytes (1.2 - 3.4 /CUMM) 2.3 Absolute Monocytes (0.10 - 0.60 /CUMM) 0.5 Absolute Eosinophils (0.0 - 0.7 /CUMM) 0.1 Absolute Basophils (0.0 - 0.2 /CUMM) 0.2 Urines Urine Color (YEL,AMB,STR) YEL Urine Clarity (CLEAR) CLEAR Urine pH (5.0 - 8.0) 6.0 Ur Specific [place] (1.001 - 1.035) 1.025 Urine Protein (NEG,<30 MG/DL) NEG Urine Ketones (NEG) TRACE H Urine Nitrite (NEG) NEG Urine Bilirubin (NEG) NEG Urine Urobilinogen (0.1 - 1.0 EU/dl) 1.0 Ur Leukocyte Esterase (NEG) NEG Ur Microscopic EXAM NOT REQUIRED Urine Hemoglobin (NEG) NEG Urine Glucose (N MG/DL) NEG 10/31 2010 Chemistry Sodium (137 - 145 mmol/L) 133 L Potassium (3.5 - 5.1 mmol/L) 4.7 Chloride (98 - 107 mmol/L) 100 Carbon Dioxide (22 - 30 mmol/L) 28 Anion Gap (5 - 16) 5 BUN (9 - 20 mg/dL) 23 H Creatinine (0.7 - 1.2 mg/dL) 0.8 Estimated GFR (>60 ml/min) > 60 BUN/Creatinine Ratio (7 - 25 %) 28.8 H Glucose (65 - 99 mg/dL) 125 H Lactic Acid (0.7 - 2.1 mmol/L) 1.8 Calcium (8.4 - 10.2 mg/dL) 8.2 L Total Bilirubin (0.2 - 1.3 mg/dL) 0.7 AST (17 - 59 U/L) 30 ALT (21 - 72 U/L) 33 Alkaline Phosphatase (< 127 U/L) 91 Total Protein (6.3 - 8.2 g/dL) 5.4 L Albumin (3.5 - 5.0 g/dL) 2.7 L Globulin (1.9 - 4.2 gm/dL) 2.7 Albumin/Globulin Ratio (1.1 - 2.2 %) 1.0 L Hematology CBC w Diff NO MAN DIFF REQ WBC (4.8 - 10.8 /CUMM) 11.8 H RBC (4.70 - 6.10 /CUMM) 3.38 L Hgb (14.0 - 18.0 G/DL) 11.4 L Hct (42 - 52 %) 34.1 L MCV (80.0 - 94.0 FL) 101.0 H MCH (27.0 - 31.0 PG) 33.8 H MCHC (33.0 - 37.0 G/DL) 33.5 RDW (11.5 - 14.5 %) 14.0 Plt Count (130 - 400 /CUMM) 271 MPV (7.4 - 10.4 FL) 8.3 Gran % (42.2 - 75.2 %) 81.5 H Lymphocytes % (20.5 - 51.1 %) 14.8 L Monocytes % (1.7 - 9.3 %) 2.0 Eosinophils % (0 - 5 %) 1.4 Basophils % (0.0 - 2.0 %) 0.3 Absolute Granulocytes (1.4 - 6.5 /CUMM) 9.6 H Absolute Lymphocytes (1.2 - 3.4 /CUMM) 1.7 Absolute Monocytes (0.10 - 0.60 /CUMM) 0.2 Absolute Eosinophils (0.0 - 0.7 /CUMM) 0.2 Absolute Basophils (0.0 - 0.2 /CUMM) 0 ESR Westergren (0 - 10 MM) 87 H Last 24 Hours of Jerel Results: Blood cultures 2 October 31 negative Assessment/Plan Assessment/Plan Impression: This is an 87-year-old man with dementia, bedridden, hospitalized 3 weeks prior to admission with a cellulitis of the back, treated with Unasyn for 3 days and discharged on Augmentin for 4 more days, admitted on October 31 because of increasing back pain, found to be afebrile with a mild leukocytosis, which has normalized without antibiotics, with diffuse erythema over the back. The diffuse rash on his back is most suggestive of candidiasis, with no evidence of any rash elsewhere to suggest a drug induced process. There does not appear to be any bacterial superinfection and, with his temperatures and white blood cell count normal, do not feel that he requires systemic antibiotics. His elevated white blood cell count on admission likely represents a concentration, with all of his cell lines, including his white blood cell count, decreased today. Suggestion: 1. Frequent turning of patient 2. Topical Nystatin to the back 4 times a day 3. Continue to follow off antibiotics Consult Acknowledgment - Thank you for your consult request.
[2017-11-01 13:28] VITALS: BP 98/43
--- NOTE | 2017-11-01 15:01 | Patient Discharge Instructions ---
Discharge Instructions General Discharge Information You were seen/treated for: Candidiasis, Skin Infection Decubitus Ulcer You had these procedures: Wound Care, Decubitus Ulcer treatment Watch for these problems: If you experience any lightheadedness, dizziness, fevers, fatigue, and/or chest pain please follow up with your PCP. Special Instructions: Please follow up with your PCP in 7 days. Please take all home medications as prescribed. Diet Continue normal diet: Yes Recommended Diet: Regular Activity Full Activity/No Limits: No Activity Self Limited: Yes Acute Coronary Syndrome Inclusion Criteria At DC or during hospital stay patient has or had the following: ACS DIAGNOSIS No Discharge Core Measures Meds if any: Prescribed or Continued at Discharge Meds if any: NOT Prescribed or Continued at Discharge Congestive Heart Failure Inclusion Criteria At DC or during hospital stay patient has or had the following: CHF DIAGNOSIS No Discharge Core Measures Meds if any: Prescribed or Continued at Discharge Meds if any: NOT Prescribed or Continued at Discharge Cerebrovascular accident Inclusion Criteria At DC or during hospital stay patient has or had the following: CVA/TIA Diagnosis No Discharge Core Measures Meds if any: Prescribed or Continued at Discharge Meds if any: NOT Prescribed or Continued at Discharge Venous thromboembolism Inclusion Criteria VTE Diagnosis No Discharge Core Measures - Per Current guidelines, there needs to be overlap - treatment for the first 5 days of Warfarin therapy. - If discharged on Warfarin prior to 5 days of - overlap therapy, the patient will need to be - assessed for post discharge needs including - *Post discharge parental anticoagulation - *Warfarin and/or parental anticoagulation education - *Follow up date to check INR post discharge Meds if any: Prescribed or Continued at Discharge Note: Overlap Therapy is Warfarin and Anticoagulant Meds if any: NOT Prescribed or Continued at Discharge
[2017-11-01 22:42] VITALS: BP 132/53
[2017-11-02 06:17] VITALS: BP 118/60
--- NOTE | 2017-11-02 07:42 | PN- Housestaff ---
See Addendum Subjective Follow-up For: Decubitus ulcer, left-sided Lower Extremity Fungal rash, continuous upper & lower back Pressure injury of Right Foot, Stage 4 Subjective: Afebrile overnight. Patient this morning is awake and laying in bed. Patient is demented at baseline. Patient states he has back pain currently, present since yesterday. Spoke with the nurse who states they have been applying his Nystatin as required every 4 hours with proper turning intervals as well. Patient otherwise denies any other complaints of chest pain, shortness of breath, fever, and chills. Review of Systems Constitutional: Reports: see HPI. Objective Last 24 Hrs of Vital Signs/I&O Vital Signs Date Time Temp Pulse Resp B/P B/P Pulse O2 O2 Flow FiO2 Mean Ox Delivery Rate 11/02 0617 98.2 56 18 118/60 98 Room Air 11/01 2242 97.6 58 18 132/53 98 Room Air 11/01 1328 97.6 74 18 98/43 97 Room Air 11/01 1230 97.9 64 16 112/54 97 Room Air 11/01 0819 97.2 79 20 125/65 98 Room Air Intake & Output 11/02 0800 11/02 0000 11/01 1600 Intake Total 130 Output Total 1 Balance -1 130 Intake, IV 10 Intake, Oral 120 Number 1 Bowel Movements Output, Stool 1 Patient 151 lb 154 lb Weight Weight Bed scale Measurement Method Physical Exam General Appearance: Alert, Cooperative, No Acute Distress (demented ) Skin: erythematous rash on upper and lower back; decubitus ulcer on left lateral femur HEENT: Atraumatic Neck: Supple, No JVD Cardiovascular: Regular Rate, Normal S1, Normal S2 Lungs: Clear to Auscultation Abdomen: Soft, No Tenderness Extremities: No Edema Assessment/Plan Assessment: Shimon Mcallister is a 87yo M w/ PMH of chronic bedsores, dementia, hx of CVA in 2000, T2DM, HFrEF presented to ER BIBA from home w/ cc of increasing back pain 2 /2 chronic bedsore. Recently admitted for same issues and completed antibiotic treatment. Had mild leukocytosis without fevers; ESR is elevated but decreased from previous admission (103 in September; 87 today) without MRI on last admission. Problem list/Assessment/Hospital Course: #Chronic decubitus ulcers/cellulitis? 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 Nystatin applied 4 times daily with frequent turning -ESR 87 (previously 103 10/11) -Left Hip X-ray & Right Foot X-ray to r/o osteomyelitis; pending -Clinitron mattress to promote proper healing of overlying skin and minimize tissue breakdown -F/u cultures: no growth currently -Wound Care Assessment: Red erthematous rash on the upper and lower back with satellite lesions and multiple areas of skin breakdown; right shoulder unstageable pressure injury; right lateral foot stage 4 pressure injury with exposed tendon: sharp excisional debridgement of about half of necrotic tissue however stopped due to patient c/o discomfort; right femoral area stage 1 pressure injury; right hip evolving DTI with dark purple discoloration at center with friable tissue; left hip unstageable pressure injury with associated peripheral erythema and moist black/sanchez eschar at center with foul odor - concern for developing osteomyelitis in setting of elevated ESR -Surgical evaluation -Speech/swallow evaluation -PT evaluation #Fungal infection (satellite lesions, erythematous plaque on back) -Nystatin powder 4 times daily application -Frequent turning of patient to prevent further complications of ulcer/rash #Diabetes Mellitus -ISS #Chronic medical conditions -Continue home meds DVT PPX IV access Heart Healthy Diet Full code Problem List: 1. Decubitus ulcers 2. Fungal infection 3. Pressure injury of right foot, stage 4 Pain Ratin Pain Location: back pain Pain Goal: Pain 4 or less Pain Plan: prn pain meds Tomorrow's Labs & Rationales: routine
[2017-11-02 07:48] LABS: ABSOLUTE BASOPHIL COUNT 0 /CUMM (0.0-0.2); ABSOLUTE EOSINOPHIL COUNT 0.3 /CUMM (0.0-0.7); ABSOLUTE GRANULOCYTE CT 3.3 /CUMM (1.4-6.5); ABSOLUTE LYMPH COUNT 1.9 /CUMM (1.2-3.4); ABSOLUTE MONOCYTE COUNT 0.4 /CUMM (0.10-0.60); BASOPHIL % 0.6 % (0.0-2.0); EOSINOPHIL % 5.6 % (0-5); GRANULOCYTE % 55.4 % (42.2-75.2); HEMATOCRIT 26.6 % (42-52); MEAN CORPUSCULAR HGB 34.6 PG (27.0-31.0); MEAN CORPUSCULAR HGB CONC 34.3 G/DL (33.0-37.0); MEAN CORPUSCULAR VOLUME 100.8 FL (80.0-94.0); MEAN PLATELET VOLUME 8.8 FL (7.4-10.4); PLATELET COUNT 204 /CUMM (130-400); RBC DISTRIBUTION WIDTH 13.7 % (11.5-14.5); RED BLOOD CELL CT 2.64 /CUMM (4.70-6.10)
--- NOTE | 2017-11-02 10:51 | Discharge Summary ---
Visit Information Visit Dates Admission Date: 10/31/17 Hospital Course Course Attending Physician: Tico Gloria MD Primary Care Physician: Fermín SMITH,Mo Serna Consulting Request: Consulting Specialty: Infectious Disease Consulting Physician: Dr. Lacey Reason for Consult: Fungal rash, upper & lower back Hospital Course: Shimon Mcallister is a 87yo M w/ PMH of chronic bedsores, dementia, hx of CVA in 2000, T2DM, HFrEF presented to ER BIBA from home w/ cc of increasing back pain 2 /2 chronic bedsore. Recently admitted for same issues and completed antibiotic treatment. Had mild leukocytosis without fevers; ESR is elevated but decreased from previous admission (103 in September; 87 today) without MRI on last admission. 1. Decubiti ulcer vs cellulitis vs osteomyelitis -Dressing c/d/i on L sacrum; wound consult recommendations received -Off abx at this time, continue to follow -ID consult rec. Nystatin applied 4 times daily with frequent turning -ESR 87 (previously 103 10/11) -Left Hip X-ray & Right Foot X-ray to r/o osteomyelitis -Clinitron mattress to promote proper healing of overlying skin and minimize tissue breakdown -F/u cultures: no growth currently -Wound Care Assessment: Red erthematous rash on the upper and lower back with satellite lesions and multiple areas of skin breakdown; right shoulder unstageable pressure injury; right lateral foot stage 4 pressure injury with exposed tendon: sharp excisional debridgement of about half of necrotic tissue however stopped due to patient c/o discomfort; right femoral area stage 1 pressure injury; right hip evolving DTI with dark purple discoloration at center with friable tissue; left hip unstageable pressure injury with associated peripheral erythema and moist black/sanchez eschar at center with foul odor - concern for developing osteomyelitis in setting of elevated ESR 2. Fungal infection (satellite lesions, erythematous plaque on back) -Nystatin powder 4 times daily application -Frequent turning of patient to prevent further complications of ulcer/rash 3. Diabetes Mellitus -ISS 4. Chronic medical conditions -Continue home meds DVT PPX IV access Heart Healthy Diet Full code Allergies: Coded Allergies: NO KNOWN ALLERGIES (10/27/14) Disposition Summary Disposition Principal Diagnosis: Decubitus Ulcer Candidial Rash Additional Diagnosis: Dementia Discharge Disposition: home or self care Discharge Instructions General Discharge Information Code Status: Full Code Patient's Diet: Regular, as tolerated Patient's Activity: Ad lucie Follow-Up Instructions/Appts: Please follow up with your PCP within a week. Please continue to take your home medications as prescribed. If you continue to experience worsening rash, back pain, and/or other developing ulcers/rash please follow up with your PCP. Medications at Discharge Discharge Medications: Stop taking the following medications: Hydrocodone/Acetaminophen (Hydrocodon-Acetaminoph 7.5-325) 7.5 MG-325 MG TABLET ORAL THREE TIMES A DAY NEEDED as needed for PAIN Qty = 60 Lidocaine (Lidoderm) 5 % ADH..PATCH On the skin DAILY as needed for Back Pain Qty = 30 Amoxicillin/Clavulanate Potass (Amox-Clav 875-125 MG Tablet) 875 MG-125 MG TABLET ORAL TWICE DAILY Qty = 8 Continue taking these medications: Metformin HCl (Metformin HCl) 500 MG TABLET 1 Tablet ORAL TWICE DAILY Comments: NOT GIVEN IN HOSPITAL Pantoprazole Sodium (Pantoprazole Sodium) 40 MG TABLET.DR 1 Tablet ORAL TWICE DAILY Qty = 90 Comments: NOT GIVEN IN HOSPITAL Cyanocobalamin (Vitamin B-12) 1,000 MCG TABLET 1 Tablet ORAL DAILY Comments: NOT GIVEN IN HOSPITAL Melatonin (Melatonin) 5 MG CAPSULE 1 Tablet ORAL DAILY as needed for Insomnia Qty = 30 Comments: Last Taken: 11/09/17 Time: 10:00 PM Acetaminophen (Tylenol Arthritis) 650 MG TABLET.ER 1 Tablet ORAL EVERY 4-6 HOURS NEEDED as needed for Pain Qty = 30 Comments: Last Taken: 11/02/17 Time: 7:30 PM Start taking the following new medications: Hydrocodone/Acetaminophen (Hydrocodon-Acetaminophen 5-325) 5 MG-325 MG TABLET 1 Tablet ORAL EVERY 4 HOURS NEEDED as needed for back pain Qty = 30 No Refills Comments: Last Taken: 11/10/17 Time: 9:00 AM Polyethylene Glycol 3350 (Miralax) 17 GRAM/DOSE POWDER 17 Gram ORAL DAILY Qty = 30 No Refills Comments: Last Taken: 11/10/17 Time: 9:00 AM Sennosides/Docusate Sodium (Senna Plus Tablet) 8.6 MG-50 MG TABLET 1 Tablet ORAL TWICE DAILY as needed for CONSTIPATION Qty = 30 No Refills Comments: Last Taken: 11/10/17 Time: 9:00 AM Triamcinolone Acetonide (Triamcinolone Acetonide) 0.1 % OINT...G. 1 Application On the skin TWICE DAILY Qty = 1 No Refills Comments: Last Taken: 11/10/17 Time: 8:30 AM Vitamin A & D (Vitamin A & D Ointment) 56.7 GM OINT...G. 1 Application On the skin TWICE DAILY Qty = 1 No Refills Comments: Last Taken: 11/10/17 Time: 8:30 AM Cod Liver Oil/Zinc Oxide (Desitin Diaper Rash 40% Paste) 40 % PASTE..G. 1 Application On the skin TWICE DAILY Qty = 1 No Refills Comments: Last Taken: 11/10/17 Time: 9:00 AM Collagenase Clostridium Hist. (Santyl) 250 UNIT/GRAM OINT...G. 1 Application On the skin DAILY NEEDED as needed for ULCER Qty = 1 No Refills Comments: Last Taken: 11/09/17 Time: 8:30 AM Copies To: Fermín SMITH,Mo Serna Attending MD Review Statement Documenting Attending: Tico Gloria MD
--- NOTE | 2017-11-02 11:14 | PN- Infect Dx ---
Subjective Subjective: Afebrile without complaints. Objective Last 24 Hrs of Vital Signs/I&O Vital Signs Date Time Temp Pulse Resp B/P B/P Pulse O2 O2 Flow FiO2 Mean Ox Delivery Rate 11/02 08 Room Air 11/02 0617 98.2 56 18 118/60 98 Room Air 11/01 2242 97.6 58 18 132/53 98 Room Air 11/01 1328 97.6 74 18 98/43 97 Room Air 11/01 1230 97.9 64 16 112/54 97 Room Air Intake & Output 11/02 1600 11/02 0800 11/02 0000 Intake Total 130 Output Total 1 Balance -1 130 Intake, IV 10 Intake, Oral 120 Number 1 Bowel Movements Output, Stool 1 Patient 151 lb Weight Physical Exam Other Physical Findings: He is awake and alert in no acute distress Lungs are clear Extremities left hip necrotic eschar with no surrounding erythema Back improvement in his candidal rash Results Last 24 Hours of Lab Results: Laboratory Tests 11/02 0650 Chemistry Sodium (137 - 145 mmol/L) 133 L Potassium (3.5 - 5.1 mmol/L) 3.9 Chloride (98 - 107 mmol/L) 103 Carbon Dioxide (22 - 30 mmol/L) 25 Anion Gap (5 - 16) 5 BUN (9 - 20 mg/dL) 21 H Creatinine (0.7 - 1.2 mg/dL) 0.7 Estimated GFR (>60 ml/min) > 60 BUN/Creatinine Ratio (7 - 25 %) 30.0 H Hematology CBC w Diff NO MAN DIFF REQ WBC (4.8 - 10.8 /CUMM) 6.0 RBC (4.70 - 6.10 /CUMM) 2.64 L Hgb (14.0 - 18.0 G/DL) 9.1 L Hct (42 - 52 %) 26.6 L MCV (80.0 - 94.0 FL) 100.8 H MCH (27.0 - 31.0 PG) 34.6 H MCHC (33.0 - 37.0 G/DL) 34.3 RDW (11.5 - 14.5 %) 13.7 Plt Count (130 - 400 /CUMM) 204 MPV (7.4 - 10.4 FL) 8.8 Gran % (42.2 - 75.2 %) 55.4 Lymphocytes % (20.5 - 51.1 %) 32.4 Monocytes % (1.7 - 9.3 %) 6.0 Eosinophils % (0 - 5 %) 5.6 H Basophils % (0.0 - 2.0 %) 0.6 Absolute Granulocytes (1.4 - 6.5 /CUMM) 3.3 Absolute Lymphocytes (1.2 - 3.4 /CUMM) 1.9 Absolute Monocytes (0.10 - 0.60 /CUMM) 0.4 Absolute Eosinophils (0.0 - 0.7 /CUMM) 0.3 Absolute Basophils (0.0 - 0.2 /CUMM) 0 Last 24 Hours of Jerel Results: Blood cultures October 31 negative Assessment/Plan ID Impression: Stable, with temperatures and white blood cell count remaining normal, off antibiotics. The rash on his back, most likely candidal in origin, appears to be improving on Nystatin. The left hip necrotic eschar may benefit from unroofing, though there is no associated inflammation and, in the absence of any fever or leukocytosis, do not feel that he requires antibiotics. Suggestion: 1. Surgical/Plastics evaluation of his left hip wound 2. Continue Nystatin powder to the back 3. Continue to follow off antibiotics
[2017-11-02 14:12] VITALS: BP 140/60
--- NOTE | 2017-11-02 17:14 | RADIOLOGY REPORT ---
EXAMINATION: CR RIGHT FOOT. CR LEFT HIP. CLINICAL INFORMATION: History of pressure ulcers. Rule out osteomyelitis. Decubitus ulcer left hip. Rule out osteomyelitis. COMPARISON: Left hip films dated 08/23/2013. CT scan of the abdomen and pelvis dated 07/29/2015. TECHNIQUE: Frontal and frog-leg lateral views of the left hip performed on 4 images. FINDINGS: Left hip: Again seen is a compression screw in the left hip transfixing an old subtrochanteric fracture. Varus angulation is noted. The femoral head remains located within the acetabulum. Prominent protrusio acetabular deformity is noted and there is moderately severe degenerative change seen with superior joint space narrowing, spurring and cystic changes noted. The medial acetabular margin is indistinct in region of previously demonstrated acetabular fracture. The previously seen left inferior pubic ramus fracture has healed. There is extensive lucency seen throughout the left femoral head, neck and trochanteric region as well as in the acetabular roof. These findings are similar to the previous exam, though evaluation for subtle superimposed new lytic lesion is limited. Extensive arterial vascular calcifications are seen. Multiple calcified granulomas are seen in the soft tissues lateral to the greater trochanter. Right foot: There is marked osteopenia with significant bone demineralization noted, leading to a model appearance of the bone marrow. No definite superimposed focal lytic or destructive bone lesion is seen to suspect osteomyelitis. Flexion deformities with degenerative changes are seen at the interphalangeal joints of all digits. There is moderate degenerative change also at the intertarsal and tarsometatarsal joints and at the first metatarsophalangeal joint. Extensive arteriovascular calcifications is seen. No ankle joint effusion is noted. No acute fracture or dislocation is seen. IMPRESSION: 1. Plain film assessment is very limited for ruling out osteomyelitis in this patient given the extensive underlying osteopenia and associated degenerative changes and in the case of the left hip the associated post traumatic and post treatment changes. No definite plain film evidence of osteomyelitis is seen in the left hip or the right foot. Depending on degree of clinical concern, consider further assessment with MRI scan. 2. 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 Findings may be related to prior fracture deformity and secondary degenerative change. 3. Prominent degenerative changes throughout the foot.
[2017-11-02 22:22] VITALS: BP 100/60
[2017-11-03 05:59] VITALS: BP 102/46
--- NOTE | 2017-11-03 07:09 | PN- Housestaff ---
See Addendum Subjective Follow-up For: Decubitus ulcer, left-sided Lower Extremity Fungal rash, continuous upper & lower back Pressure injury of Right Foot, Stage 4 Subjective: Afebrile overnight. No acute events overnight. Patient is demented at baseline and currently asleep. Spoke with nurse who states patient has slept majority of the night with no complaints of pain. Patient also has been eating mostly puree foods with the nurse; awaiting speech/swallow evaluation. Patient is also currently being treated with Nystatin for his fungal rash which is showing slight improvement. Review of Systems Constitutional: Reports: see HPI. Objective Last 24 Hrs of Vital Signs/I&O Vital Signs Date Time Temp Pulse Resp B/P B/P Pulse O2 O2 Flow FiO2 Mean Ox Delivery Rate 11/03 0559 97.9 57 20 102/46 96 Room Air 11/02 2222 99.7 68 18 100/60 99 Room Air 11/02 1602 Room Air 11/02 1412 97.4 56 19 140/60 99 Room Air 11/02 0800 Room Air Intake & Output 11/03 0800 11/03 0000 11/02 1600 Intake Total 60 410 320 Output Total Balance 60 410 320 Intake, IV 10 20 Intake, Oral 60 400 300 Number 0 Bowel Movements Patient 151 lb Weight Physical Exam General Appearance: Alert, demented at baseline Skin: erythematous rash on back; left hip decubitus ulcer; right foot stage 4 pressure injury HEENT: Atraumatic Neck: Supple, No JVD Cardiovascular: Regular Rate, Normal S1, Normal S2 Lungs: Clear to Auscultation Neurological: limited movement at baseline Assessment/Plan Assessment: XRY-FOOT COMPLETE, R; XRY-HIP 2-3 VIEWS, LEFT - 1. Plain film assessment is very limited for ruling out osteomyelitis in this patient given the extensive underlying osteopenia and associated degenerative changes and in the case of the left hip the associated post traumatic and post treatment changes. No definite plain film evidence of osteomyelitis is seen in the left hip or the right foot. Depending on degree of clinical concern, consider further assessment with MRI scan. 2. 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 Findings may be related to prior fracture deformity and secondary degenerative change. 3. Prominent degenerative changes throughout the foot. Shimon Mcallister is a 87yo M w/ PMH of chronic bedsores, dementia, hx of CVA in 2000, T2DM, HFrEF presented to ER [facility] from home w/ cc of increasing back pain 2 /2 chronic bedsore. Recently admitted for same issues and completed antibiotic treatment. Had mild leukocytosis without fevers; ESR is elevated but decreased from previous admission (103 in September; 87 today) without MRI on last admission. Problem list/Assessment/Hospital Course: #Chronic decubitus ulcers/cellulitis? 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 Nystatin applied 4 times daily with frequent turning; if no improvement consider oral antifungal treatment -ESR 87 (previously 103 10/11) -Left Hip X-ray & Right Foot X-ray to r/o osteomyelitis; no definite evidence of osteomyelitis seen on either film exam of the left hip and right foot -Clinitron mattress to promote proper healing of overlying skin and minimize tissue breakdown -F/u cultures: no growth currently -Wound Care Assessment: Red erthematous rash on the upper and lower back with satellite lesions and multiple areas of skin breakdown; right shoulder unstageable pressure injury; right lateral foot stage 4 pressure injury with exposed tendon: sharp excisional debridgement of about half of necrotic tissue however stopped due to patient c/o discomfort; right femoral area stage 1 pressure injury; right hip evolving DTI with dark purple discoloration at center with friable tissue; left hip unstageable pressure injury with associated peripheral erythema and moist black/sanchez eschar at center with foul odor - concern for developing osteomyelitis in setting of elevated ESR -Surgical evaluation -Speech/swallow evaluation; continue with puree and thin liquids -PT evaluation; short term goals outlined as bed mobility with assist of 2, transfer/balance training, and initation of excercises/stretching -Social Service consult #Fungal infection (satellite lesions, erythematous plaque on back) -Nystatin powder 4 times daily application -Frequent turning of patient to prevent further complications of ulcer/rash #Diabetes Mellitus -Insulin sliding scale -D5 1/2 NS at 75 cc/hr; concern for patient not eating by own, informed nurses/ family to encourage patient to intake food #Chronic medical conditions -Continue home meds DVT PPX IV access Heart Healthy Diet Full code Problem List: 1. Decubitus ulcers 2. Fungal infection 3. Pressure injury of right foot, stage 4 Pain Ratin Pain Location: na Pain Goal: Remain pain free Pain Plan: prn pain meds Tomorrow's Labs & Rationales: routine Consulting Request: Consulting Specialty: Infectious Disease Consulting Physician: Dr. Lacey Reason for Consult: Fungal rash, upper & lower back
[2017-11-03 07:38] LABS: ABSOLUTE BASOPHIL COUNT 0 /CUMM (0.0-0.2); ABSOLUTE EOSINOPHIL COUNT 0.4 /CUMM (0.0-0.7); ABSOLUTE GRANULOCYTE CT 2.8 /CUMM (1.4-6.5); ABSOLUTE MONOCYTE COUNT 0.4 /CUMM (0.10-0.60); BASOPHIL % 0.8 % (0.0-2.0); EOSINOPHIL % 6.3 % (0-5); GRANULOCYTE % 50.2 % (42.2-75.2); HEMATOCRIT 26.6 % (42-52); MEAN CORPUSCULAR HGB 34.2 PG (27.0-31.0); MEAN CORPUSCULAR VOLUME 100.5 FL (80.0-94.0); MEAN PLATELET VOLUME 8.5 FL (7.4-10.4); PLATELET COUNT 190 /CUMM (130-400); RBC DISTRIBUTION WIDTH 14.1 % (11.5-14.5); RED BLOOD CELL CT 2.65 /CUMM (4.70-6.10); WHITE BLOOD CELL COUNT 5.6 /CUMM (4.8-10.8)
--- NOTE | 2017-11-03 13:18 | PN- Infect Dx ---
Subjective Subjective: Afebrile. He complains of low back pain. Objective Last 24 Hrs of Vital Signs/I&O Vital Signs Date Time Temp Pulse Resp B/P B/P Pulse O2 O2 Flow FiO2 Mean Ox Delivery Rate 11/03 0719 Room Air 11/03 0559 97.9 57 20 102/46 96 Room Air 11/02 2222 99.7 68 18 100/60 99 Room Air 11/02 1602 Room Air 11/02 1412 97.4 56 19 140/60 99 Room Air Intake & Output 11/03 1600 11/03 0800 11/03 0000 Intake Total 60 410 Output Total Balance 60 410 Intake, IV 10 Intake, Oral 60 400 Number 0 Bowel Movements Physical Exam Other Physical Findings: He appears comfortable in no acute distress Skin candidal rash persists, with no significant improvement Extremities left hip necrotic wound with no surrounding erythema Results Last 24 Hours of Lab Results: Laboratory Tests 11/03 06 Chemistry Sodium (137 - 145 mmol/L) 134 L Potassium (3.5 - 5.1 mmol/L) 4.1 Chloride (98 - 107 mmol/L) 103 Carbon Dioxide (22 - 30 mmol/L) 26 Anion Gap (5 - 16) 5 BUN (9 - 20 mg/dL) 19 Creatinine (0.7 - 1.2 mg/dL) 0.7 Estimated GFR (>60 ml/min) > 60 BUN/Creatinine Ratio (7 - 25 %) 27.1 H Hematology CBC w Diff NO MAN DIFF REQ WBC (4.8 - 10.8 /CUMM) 5.6 RBC (4.70 - 6.10 /CUMM) 2.65 L Hgb (14.0 - 18.0 G/DL) 9.1 L Hct (42 - 52 %) 26.6 L MCV (80.0 - 94.0 FL) 100.5 H MCH (27.0 - 31.0 PG) 34.2 H MCHC (33.0 - 37.0 G/DL) 34.0 RDW (11.5 - 14.5 %) 14.1 Plt Count (130 - 400 /CUMM) 190 MPV (7.4 - 10.4 FL) 8.5 Gran % (42.2 - 75.2 %) 50.2 Lymphocytes % (20.5 - 51.1 %) 36.1 Monocytes % (1.7 - 9.3 %) 6.6 Eosinophils % (0 - 5 %) 6.3 H Basophils % (0.0 - 2.0 %) 0.8 Absolute Granulocytes (1.4 - 6.5 /CUMM) 2.8 Absolute Lymphocytes (1.2 - 3.4 /CUMM) 2.0 Absolute Monocytes (0.10 - 0.60 /CUMM) 0.4 Absolute Eosinophils (0.0 - 0.7 /CUMM) 0.4 Absolute Basophils (0.0 - 0.2 /CUMM) 0 Last 24 Hours of Jerel Results: Blood cultures 2 October 31 negative Recent Imaging Studies: X-ray of the left hip November 02 reveals moderately severe degenerative changes, with no definite evidence of osteomyelitis X-ray of the right foot reveals marked osteopenia with no definite superimposed lytic or destructive bone lesion to suspect osteomyelitis Assessment/Plan ID Impression: Stable, with temperatures and white blood cell count remaining normal, off antibiotics. The rash on his back, most likely candidal in origin, persists despite treatment with Nystatin and, if it does not improve, will need to consider systemic antifungal therapy. The left hip necrotic eschar may benefit from unroofing, though there is no associated inflammation and, in the absence of any fever or leukocytosis, do not feel that he requires antibiotics for this. Suggestion: 1. Await surgical evaluation of his left hip wound 2. Continue Nystatin powder but, if he does not improve, will consider Fluconazole 200 mg p.o. every 24 hours
[2017-11-03 14:05] VITALS: BP 122/99
--- NOTE | 2017-11-03 22:31 | Cons- General Surgery ---
General Information and HPI Consulting Request Date of Consult: 11/03/17 Requested By: Tico Gloria MD History of Present Illness: to be completed Bedside I&D tomorrow Allergies/Medications Allergies: Coded Allergies: NO KNOWN ALLERGIES (10/27/14) Home Med List: Acetaminophen (Tylenol Arthritis) 650 MG TABLET.ER 1 TAB PO Q4-6 PRN PRN Pain Cyanocobalamin (Vitamin B-12) 1,000 MCG TABLET 1 TAB PO DAILY SUPPLEMENT ( Reported) Hydrocodone/Acetaminophen (Hydrocodon-Acetaminoph 7.5-325) 7.5 MG-325 MG TABLET 1 TAB PO TIDPRN PRN PAIN (Reported) Melatonin 5 MG CAPSULE 1 TAB PO DAILY PRN Insomnia Metformin HCl 500 MG TABLET 1 TAB PO BID DM (Reported) Pantoprazole Sodium 40 MG TABLET.DR 1 TAB PO BID GI (Reported) Past History Medical History Neurological: CVA, dementia, peripheral neuropathy EENT: NONE Cardiovascular: NONE Respiratory: NONE Gastrointestinal: BLEEDING ULCER Hepatic: NONE Renal: NONE Musculoskeletal: osteoarthritis, GOUT SPINAL STENOSIS Psychiatric: NONE Endocrine: BORDERLINE DM Blood Disorders: NONE Cancer(s): NONE AUTOMOTIVE COLLISION ESTIMATOR/Reproductive: NONE Surgical History Pertinent Surgical History: HERNIA REPAIR Family History Relations & Conditions If Any: MOTHER Relation not specified for: FH ischemic heart disease Psychosocial History Where Do You Live? Home Who Do You Live With? spouse Services at Home: Home Health Aide, Nursing Primary Language: [place] Smoking Status: Never Smoked Functional Ability Ambulation: non-ambulatory, Patient previously walked with walker, but has been unable to ambulate for past 3 weeks due to foot problems. Exam & Diagnostic Data Vital Signs and I&O I rev Vital Signs Date Time Temp Pulse Resp B/P B/P Pulse O2 O2 Flow FiO2 Mean Ox Delivery Rate 11/03 1405 93.3 61 20 122/99 95 Room Air 11/03 0719 Room Air 11/03 0559 97.9 57 20 102/46 96 Room Air Intake & Output 11/03 1600 11/03 0800 11/03 0000 11/02 1600 11/02 0811/02 0000 Intake Total 885 60 410 320 130 Output Total 1 Balance 885 60 410 320 -1 130 Intake, IV 525 10 20 10 Intake, Oral 360 60 400 300 120 Number 1 0 1 Bowel Movements Output, Stool 1 Patient 151 lb 151 lb Weight Last 24 Hours of Labs: I rev Laboratory Tests 11/03 0605 Chemistry Sodium (137 - 145 mmol/L) 134 L Potassium (3.5 - 5.1 mmol/L) 4.1 Chloride (98 - 107 mmol/L) 103 Carbon Dioxide (22 - 30 mmol/L) 26 Anion Gap (5 - 16) 5 BUN (9 - 20 mg/dL) 19 Creatinine (0.7 - 1.2 mg/dL) 0.7 Estimated GFR (>60 ml/min) > 60 BUN/Creatinine Ratio (7 - 25 %) 27.1 H Hematology CBC w Diff NO MAN DIFF REQ WBC (4.8 - 10.8 /CUMM) 5.6 RBC (4.70 - 6.10 /CUMM) 2.65 L Hgb (14.0 - 18.0 G/DL) 9.1 L Hct (42 - 52 %) 26.6 L MCV (80.0 - 94.0 FL) 100.5 H MCH (27.0 - 31.0 PG) 34.2 H MCHC (33.0 - 37.0 G/DL) 34.0 RDW (11.5 - 14.5 %) 14.1 Plt Count (130 - 400 /CUMM) 190 MPV (7.4 - 10.4 FL) 8.5 Gran % (42.2 - 75.2 %) 50.2 Lymphocytes % (20.5 - 51.1 %) 36.1 Monocytes % (1.7 - 9.3 %) 6.6 Eosinophils % (0 - 5 %) 6.3 H Basophils % (0.0 - 2.0 %) 0.8 Absolute Granulocytes (1.4 - 6.5 /CUMM) 2.8 Absolute Lymphocytes (1.2 - 3.4 /CUMM) 2.0 Absolute Monocytes (0.10 - 0.60 /CUMM) 0.4 Absolute Eosinophils (0.0 - 0.7 /CUMM) 0.4 Absolute Basophils (0.0 - 0.2 /CUMM) 0 Assessment/Plan Consult Acknowledgment - Thank you for your consult request.
[2017-11-03 22:38] VITALS: BP 110/64
[2017-11-04 06:47] VITALS: BP 100/66
--- NOTE | 2017-11-04 08:22 | PN- Housestaff ---
See Addendum Subjective Follow-up For: Decubitus ulcer, left-sided Lower Extremity Fungal rash, continuous upper & lower back Pressure injury of Right Foot, Stage 4 Subjective: Afebrile overnight. No acute events overnight. Patient currently sleeping. Nurse mentions patient ate this morning and pain better well controlled. Spoke with patient's yesterday and updated her on current plan. Patient scheduled for I&D with surgery today. Patient's rash noted to be improving. Continuing to monitor and follow up with consults as needed Review of Systems Constitutional: Reports: see HPI. Objective Last 24 Hrs of Vital Signs/I&O Vital Signs Date Time Temp Pulse Resp B/P B/P Pulse O2 O2 Flow FiO2 Mean Ox Delivery Rate 11/04 0800 96 Room Air 11/04 0647 97.7 63 20 100/66 95 Room Air 11/03 2238 98.1 61 20 110/64 97 Room Air 11/03 1405 93.3 61 20 122/99 95 Room Air Intake & Output 11/04 1600 11/04 0800 11/04 0000 Intake Total 130 700 Output Total Balance 130 700 Intake, IV 10 600 Intake, Oral 120 100 Number 3 Bowel Movements Physical Exam General Appearance: Alert, demented at baseline Skin: erythematous rash on back; left hip decubitus ulcer; right foot stage 4 pressure injury HEENT: Atraumatic Neck: Supple, No JVD Cardiovascular: Regular Rate, Normal S1, Normal S2 Lungs: Clear to Auscultation Neurological: limited movement at baseline Assessment/Plan Assessment: XRY-FOOT COMPLETE, R; XRY-HIP 2-3 VIEWS, LEFT - 1. Plain film assessment is very limited for ruling out osteomyelitis in this patient given the extensive underlying osteopenia and associated degenerative changes and in the case of the left hip the associated post traumatic and post treatment changes. No definite plain film evidence of osteomyelitis is seen in the left hip or the right foot. Depending on degree of clinical concern, consider further assessment with MRI scan. 2. 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 Findings may be related to prior fracture deformity and secondary degenerative change. 3. Prominent degenerative changes throughout the foot. Shimon Mcallister is a 87yo M w/ PMH of chronic bedsores, dementia, hx of CVA in 2000, T2DM, HFrEF presented to ER BIBA from home w/ cc of increasing back pain 2 /2 chronic bedsore. Recently admitted for same issues and completed antibiotic treatment. Had mild leukocytosis without fevers; ESR is elevated but decreased from previous admission (103 in September; 87 today) without MRI on last admission. Problem list/Assessment/Hospital Course: #Chronic decubitus ulcers/cellulitis? 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 Nystatin applied 4 times daily with frequent turning; if no improvement consider oral antifungal treatment -ESR 87 (previously 103 10/11) -Left Hip X-ray & Right Foot X-ray to r/o osteomyelitis; no definite evidence of osteomyelitis seen on either film exam of the left hip and right foot -Clinitron mattress to promote proper healing of overlying skin and minimize tissue breakdown -F/u cultures: no growth currently -Wound Care Assessment: Red erthematous rash on the upper and lower back with satellite lesions and multiple areas of skin breakdown; right shoulder unstageable pressure injury; right lateral foot stage 4 pressure injury with exposed tendon: sharp excisional debridgement of about half of necrotic tissue however stopped due to patient c/o discomfort; right femoral area stage 1 pressure injury; right hip evolving DTI with dark purple discoloration at center with friable tissue; left hip unstageable pressure injury with associated peripheral erythema and moist black/sanchez eschar at center with foul odor - concern for developing osteomyelitis in setting of elevated ESR -Surgical evaluation, scheduled for I&D -Speech/swallow evaluation; continue with puree and thin liquids -PT evaluation; short term goals outlined as bed mobility with assist of 2, transfer/balance training, and initation of excercises/stretching -Social Service consult #Fungal infection (satellite lesions, erythematous plaque on back) -Nystatin powder 4 times daily application -Frequent turning of patient to prevent further complications of ulcer/rash -Oral Fluconazole 200 mg qam -Triamcinolone .1% ointment for additional anti-inflammatory benefit for erythematous rash #Diabetes Mellitus -Insulin sliding scale -D5 1/2 NS at 75 cc/hr; concern for patient not eating by own, informed nurses/ family to encourage patient to intake food #Chronic medical conditions -Continue home meds DVT PPX IV access Heart Healthy Diet Full code Problem List: 1. Decubitus ulcers 2. Fungal infection 3. Pressure injury of right foot, stage 4 Pain Ratin Pain Location: na Pain Goal: Remain pain free Pain Plan: na Tomorrow's Labs & Rationales: Not indicated at present Consulting Request: Consulting Specialty: Infectious Disease Consulting Physician: Dr. Lacey Reason for Consult: Fungal rash, upper & lower back
--- NOTE | 2017-11-04 13:53 | PN- Infect Dx ---
Subjective Subjective: Afebrile. He continues to complain of low back pain. Objective Last 24 Hrs of Vital Signs/I&O Vital Signs Date Time Temp Pulse Resp B/P B/P Pulse O2 O2 Flow FiO2 Mean Ox Delivery Rate 11/04 0800 96 Room Air 11/04 0647 97.7 63 20 100/66 95 Room Air 11/03 2238 98.1 61 20 110/64 97 Room Air 11/03 1405 93.3 61 20 122/99 95 Room Air Intake & Output 11/04 1600 11/04 0800 11/04 0000 Intake Total 130 700 Output Total Balance 130 700 Intake, IV 10 600 Intake, Oral 120 100 Number 3 Bowel Movements Physical Exam Other Physical Findings: He appears comfortable in no acute distress Skin candidal rash on his back improved Extremities left hip necrotic decubitus with no surrounding inflammation Results Last 24 Hours of Lab Results: No labs from today Last 24 Hours of Jerel Results: Blood cultures 2 October 31 remain negative Assessment/Plan ID Impression: Stable, with temperatures and white blood cell count remaining normal, off antibiotics. The rash on his back, most likely candidal in origin, appears to be improving with Nystatin. He apparently was given a dose of Fluconazole this morning but, given the improvement, feel that this can be discontinued. Surgical evaluation noted, with plans for debridement of the left hip necrotic eschar later today. Suggestion: 1. Await debridement of his left hip eschar later today 2. Discontinue Fluconazole 3. Continue Nystatin powder
[2017-11-04 15:38] VITALS: BP 108/74
[2017-11-04 22:07] VITALS: BP 118/60
--- NOTE | 2017-11-04 22:57 | Procedure ---
Minor Surgical Procedure Note Date of Procedure: 11/04/17 Procedure Note: Preop- Left hip decubitus ulcer Postop-same Procedure- Sharp scalpel debridement of decubitus ulcer Attending -Maryjo Cox in his bed, positioned right lateral then left hip decubitus and surrounding area was prepped and draped in usual sterile fashion-then using a scalpel a full -thickness debridement was done to remove the central necrotic skin and subcutaneous fat down to fascia and the bleeding edge there were 2 spots adjacent patient was awake during the procedure and tolerated it well, area was insensate. Area was checked for hemostasis then covered with gauze and tape. The area excised was approximately 5 x 4 cm total. Recommend continue daily wound care and with enzymatic debridement ointment.
[2017-11-05 06:50] VITALS: BP 130/54
--- NOTE | 2017-11-05 08:52 | PN- Housestaff ---
Jitendra Jorgensen 11/05/17 0852: Subjective Follow-up For: Decubitus ulcer, left-sided Lower Extremity Fungal rash, continuous upper & lower back Pressure injury of Right Foot, Stage 4 Subjective: I visited the patient today, he was lying back in his bed, alert, in no acute distress. He stated that he feels terrible because of his back ulcer. Based on the reports of tenderness there was no change in his condition comparing to yesterday. He had rash on his scarring on his back, the nurse applied nystatin powder. He also had one ulcer on his right foot with dressing on it, and a pressure ulcer on left calcaneus. Review of Systems Constitutional: Reports: see HPI. Objective Last 24 Hrs of Vital Signs/I&O Vital Signs Date Time Temp Pulse Resp B/P B/P Pulse O2 O2 Flow FiO2 Mean Ox Delivery Rate 11/05 1423 98.5 78 16 116/62 98 Room Air 11/05 0650 97.8 54 18 130/54 97 11/04 2207 97.9 66 18 118/60 94 Room Air 11/04 1600 Room Air 11/04 1538 98.3 66 20 108/74 96 Room Air Intake & Output 11/05 1600 11/05 0800 11/05 0000 Intake Total 960 720 660 Output Total Balance 960 720 660 Intake, IV 600 600 560 Intake, Oral 360 120 100 Physical Exam General Appearance: Alert, No Acute Distress Skin: Rash and scaling on his back Skin Temp/Moisture Exam: Warm/Dry Sepsis Skin Exam (color): Normal for Ethnicity HEENT: Atraumatic Neck: Deformation and contracture Cardiovascular: Regular Rate, Normal S1, Normal S2 Lungs: Clear to Auscultation, Normal Air Movement Assessment/Plan Assessment: XRY-FOOT COMPLETE, R; XRY-HIP 2-3 VIEWS, LEFT - 1. Plain film assessment is very limited for ruling out osteomyelitis in this patient given the extensive underlying osteopenia and associated degenerative changes and in the case of the left hip the associated post traumatic and post treatment changes. No definite plain film evidence of osteomyelitis is seen in the left hip or the right foot. Depending on degree of clinical concern, consider further assessment with MRI scan. 2. 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 Findings may be related to prior fracture deformity and secondary degenerative change. 3. Prominent degenerative changes throughout the foot. Shimon Mcallister is a 87yo M w/ PMH of chronic bedsores, dementia, hx of CVA in 2000, T2DM, HFrEF presented to ER BIBA from home w/ cc of increasing back pain 2 /2 chronic bedsore. Recently admitted for same issues and completed antibiotic treatment. Had mild leukocytosis without fevers; ESR is elevated but decreased from previous admission (103 in September; 87 today) without MRI on last admission. Problem list/Assessment/Hospital Course: #Chronic decubitus ulcers/cellulitis? 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 Nystatin applied 4 times daily with frequent turning; if no improvement consider oral antifungal treatment -ESR 87 (previously 103 10/11) -Left Hip X-ray & Right Foot X-ray to r/o osteomyelitis; no definite evidence of osteomyelitis seen on either film exam of the left hip and right foot -Clinitron mattress to promote proper healing of overlying skin and minimize tissue breakdown -F/u cultures: no growth currently -Wound Care Assessment: Red erthematous rash on the upper and lower back with satellite lesions and multiple areas of skin breakdown; right shoulder unstageable pressure injury; right lateral foot stage 4 pressure injury with exposed tendon: sharp excisional debridgement of about half of necrotic tissue however stopped due to patient c/o discomfort; right femoral area stage 1 pressure injury; right hip evolving DTI with dark purple discoloration at center with friable tissue; left hip unstageable pressure injury with associated peripheral erythema and moist black/sanchez eschar at center with foul odor - concern for developing osteomyelitis in setting of elevated ESR -Surgical evaluation, scheduled for I&D -Speech/swallow evaluation; continue with puree and thin liquids -PT evaluation; short term goals outlined as bed mobility with assist of 2, transfer/balance training, and initation of excercises/stretching -Social Service consult #Fungal infection (satellite lesions, erythematous plaque on back) -Nystatin powder 4 times daily application -Frequent turning of patient to prevent further complications of ulcer/rash -Oral Fluconazole 200 mg qam -Triamcinolone .1% ointment for additional anti-inflammatory benefit for erythematous rash #Diabetes Mellitus -Insulin sliding scale -D5 1/2 NS at 75 cc/hr; concern for patient not eating by own, informed nurses/ family to encourage patient to intake food #Chronic medical conditions -Continue home meds DVT PPX IV access Heart Healthy Diet Full code Problem List: 1. Decubitus ulcers 2. Fungal infection 3. Pressure injury of right foot, stage 4 Pain Ratin Pain Location: Decubitus ulcer Pain Goal: Pain 4 or less Pain Plan: Vicodin Acetaminophen Tomorrow's Labs & Rationales: As indicated Consulting Request: Consulting Specialty: Infectious Disease Consulting Physician: Dr. Lacey Reason for Consult: Fungal rash, upper & lower back Roddy Kign 11/05/17 1530: Attending MD Review Statement Attending Statement Attending MD Statement: examined this patient, discuss w/resident/PA/BACKEND PYTHON DEVELOPER, agreed w/resident/PA/BACKEND PYTHON DEVELOPER, reviewed EMR data (avail) Attending Assessment/Plan: pt with foot ulcer and ischial tuberosity pressure ulcer and hip ulcers s/p debridement and fungal skin infection. cont current managment. will need to d/w case management on tuesday the dc plan.
[2017-11-05 14:23] VITALS: BP 116/62
[2017-11-05 21:48] VITALS: BP 110/60
[2017-11-06 06:47] VITALS: BP 132/57
--- NOTE | 2017-11-06 08:23 | PN- Housestaff ---
Jitendra Jorgensen 11/06/17 0823: Subjective Follow-up For: Decubitus ulcer, left-sided Lower Extremity Fungal rash, continuous upper & lower back Pressure injury of Right Foot, Stage 4 Subjective: I visited the patient today, he was lying back in his bed, alert, in no acute distress. He has stated that he does not feel good then he has a 5 out of 10 pain in his lower back. Based on the reports of tenderness there was no change in his condition comparing to yesterday. He had rash on his scarring on his back, the nurse applied nystatin powder. Review of Systems Constitutional: Reports: see HPI. Objective Last 24 Hrs of Vital Signs/I&O Vital Signs Date Time Temp Pulse Resp B/P B/P Pulse O2 O2 Flow FiO2 Mean Ox Delivery Rate 11/06 0647 97.7 63 16 132/57 100 Room Air 11/05 2148 98.6 86 16 110/60 98 Room Air 11/05 1600 Room Air 11/05 1423 98.5 78 16 116/62 98 Room Air Intake & Output 11/06 1600 11/06 0800 11/06 0000 Intake Total 960 150 Output Total Balance 960 150 Intake, IV 600 Intake, Oral 360 150 Physical Exam General Appearance: Alert, No Acute Distress Skin: Rash and scaling on his back Skin Temp/Moisture Exam: Warm/Dry Sepsis Skin Exam (color): Normal for Ethnicity HEENT: Atraumatic Cardiovascular: Regular Rate, Normal S1, Normal S2 Lungs: Clear to Auscultation, Normal Air Movement Assessment/Plan Assessment: XRY-FOOT COMPLETE, R; XRY-HIP 2-3 VIEWS, LEFT - 1. Plain film assessment is very limited for ruling out osteomyelitis in this patient given the extensive underlying osteopenia and associated degenerative changes and in the case of the left hip the associated post traumatic and post treatment changes. No definite plain film evidence of osteomyelitis is seen in the left hip or the right foot. Depending on degree of clinical concern, consider further assessment with MRI scan. 2. 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 Findings may be related to prior fracture deformity and secondary degenerative change. 3. Prominent degenerative changes throughout the foot. Shimon Mcallister is a 87yo M w/ PMH of chronic bedsores, dementia, hx of CVA in 2000, T2DM, HFrEF presented to ER BIBA from home w/ cc of increasing back pain 2 /2 chronic bedsore. Recently admitted for same issues and completed antibiotic treatment. Had mild leukocytosis without fevers; ESR is elevated but decreased from previous admission (103 in September; 87 today) without MRI on last admission. Problem list/Assessment/Hospital Course: #Chronic decubitus ulcers/cellulitis? 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 Nystatin applied 4 times daily with frequent turning; if no improvement consider oral antifungal treatment -ESR 87 (previously 103 10/11) -Left Hip X-ray & Right Foot X-ray to r/o osteomyelitis; no definite evidence of osteomyelitis seen on either film exam of the left hip and right foot -Clinitron mattress to promote proper healing of overlying skin and minimize tissue breakdown -F/u cultures: no growth currently -Wound Care Assessment: Red erthematous rash on the upper and lower back with satellite lesions and multiple areas of skin breakdown; right shoulder unstageable pressure injury; right lateral foot stage 4 pressure injury with exposed tendon: sharp excisional debridgement of about half of necrotic tissue however stopped due to patient c/o discomfort; right femoral area stage 1 pressure injury; right hip evolving DTI with dark purple discoloration at center with friable tissue; left hip unstageable pressure injury with associated peripheral erythema and moist black/sanchez eschar at center with foul odor - concern for developing osteomyelitis in setting of elevated ESR -Surgical evaluation, scheduled for I&D -Speech/swallow evaluation; continue with puree and thin liquids -PT evaluation; short term goals outlined as bed mobility with assist of 2, transfer/balance training, and initation of excercises/stretching -Social Service consult #Fungal infection (satellite lesions, erythematous plaque on back) -Nystatin powder 4 times daily application -Frequent turning of patient to prevent further complications of ulcer/rash -Oral Fluconazole 200 mg qam -Triamcinolone .1% ointment for additional anti-inflammatory benefit for erythematous rash #Diabetes Mellitus -Insulin sliding scale -D5 1/2 NS at 75 cc/hr; concern for patient not eating by own, informed nurses/ family to encourage patient to intake food #Chronic medical conditions -Continue home meds DVT PPX IV access Heart Healthy Diet Full code Problem List: 1. Decubitus ulcers 2. Fungal infection 3. Pressure injury of right foot, stage 4 Pain Ratin Pain Location: Decubitus ulcer Pain Goal: Pain 4 or less Pain Plan: Vicodin Acetaminophen Tomorrow's Labs & Rationales: As indicated Consulting Request: Consulting Specialty: Infectious Disease Consulting Physician: Dr. Lacey Reason for Consult: Fungal rash, upper & lower back Roddy King 11/06/17 1729: Attending MD Review Statement Attending Statement Attending MD Statement: examined this patient, discuss w/resident/PA/OPERATIONS ASSISTANT, agreed w/resident/PA/OPERATIONS ASSISTANT, reviewed EMR data (avail) Attending Assessment/Plan: pt with foot ulcer and ischial tuberosity pressure ulcer and hip ulcers s/p debridement and fungal skin infection. cont current managment with diflucan and nystatin powder. d/w case management on tuesday the dc plan. pt staying afebrile off abx.
[2017-11-06 14:58] VITALS: BP 116/68
[2017-11-06 21:00] VITALS: BP 108/64
[2017-11-07 06:26] VITALS: BP 130/67
--- NOTE | 2017-11-07 08:35 | PN- Housestaff ---
See Addendum Subjective Follow-up For: Decubitus ulcer, left-sided Lower Extremity Fungal rash, continuous upper & lower back Pressure injury of Right Foot, Stage 4 Subjective: Afebrile overnight. Patient is seen and examined sleeping in bed. Patient is being treated for a fungal rash on his back currently with powder and oral medications. Patient pain rated as 7 out of 10 located in his back this morning. Patient will continue to be followed by the medicine team, awaiting further recommendations from infectious disease and surgery post hip ulcer debridement procedure. Review of Systems Constitutional: Reports: see HPI. Objective Last 24 Hrs of Vital Signs/I&O Vital Signs Date Time Temp Pulse Resp B/P B/P Pulse O2 O2 Flow FiO2 Mean Ox Delivery Rate 11/07 0626 98.2 71 20 130/67 96 Room Air 11/06 2100 98.1 74 16 108/64 95 Room Air 11/06 1600 Room Air 11/06 1458 97.4 71 18 116/68 100 Room Air Intake & Output 11/07 1600 11/07 0800 11/07 0000 Intake Total 660 Output Total Balance 660 Intake, IV 600 Intake, Oral 60 Physical Exam General Appearance: Alert, No Acute Distress Skin: erythematous rash on back; left hip decubitus ulcer; right foot stage 4 pressure injury HEENT: Atraumatic Neck: Supple, No JVD Cardiovascular: Regular Rate, Normal S1, Normal S2 Lungs: Clear to Auscultation Neurological: limited movement at baseline, dementia Assessment/Plan Assessment: XRY-FOOT COMPLETE, R; XRY-HIP 2-3 VIEWS, LEFT - 1. Plain film assessment is very limited for ruling out osteomyelitis in this patient given the extensive underlying osteopenia and associated degenerative changes and in the case of the left hip the associated post traumatic and post treatment changes. No definite plain film evidence of osteomyelitis is seen in the left hip or the right foot. Depending on degree of clinical concern, consider further assessment with MRI scan. 2. 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 Findings may be related to prior fracture deformity and secondary degenerative change. 3. Prominent degenerative changes throughout the foot. Shimon Mcallister is a 87yo M w/ PMH of chronic bedsores, dementia, hx of CVA in 2000, T2DM, HFrEF presented to ER BIBA from home w/ cc of increasing back pain 2 /2 chronic bedsore. Recently admitted for same issues and completed antibiotic treatment. Had mild leukocytosis without fevers; ESR is elevated but decreased from previous admission (103 in September; 87 today) without MRI on last admission. Problem list/Assessment/Hospital Course: #Chronic decubitus ulcers/cellulitis? 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 Nystatin applied 4 times daily with frequent turning; if no improvement consider oral antifungal treatment; Discontinued Nystatin, continue Fluconazole 200 mg PO for 1 week (currently Day 4 of treatment, started 11/04 and stop on 11/10) -ESR 87 on 10/31 (previously 103 10/11) -Left Hip X-ray & Right Foot X-ray to r/o osteomyelitis; no definite evidence of osteomyelitis seen on either film exam of the left hip and right foot -Clinitron mattress to promote proper healing of overlying skin and minimize tissue breakdown -F/u cultures: no growth currently -Wound Care Assessment: Red erthematous rash on the upper and lower back with satellite lesions and multiple areas of skin breakdown; right shoulder unstageable pressure injury; right lateral foot stage 4 pressure injury with exposed tendon: sharp excisional debridgement of about half of necrotic tissue however stopped due to patient c/o discomfort; right femoral area stage 1 pressure injury; right hip evolving DTI with dark purple discoloration at center with friable tissue; left hip unstageable pressure injury with associated peripheral erythema and moist black/sanchez eschar at center with foul odor - concern for developing osteomyelitis in setting of elevated ESR -Surgical evaluation, scheduled for I&D -Speech/swallow evaluation; continue with puree and thin liquids -PT evaluation; short term goals outlined as bed mobility with assist of 2, transfer/balance training, and initation of excercises/stretching -Social Service consult #Fungal infection (satellite lesions, erythematous plaque on back) -Nystatin powder 4 times daily application; discontinued -Frequent turning of patient to prevent further complications of ulcer/rash -Oral Fluconazole 200 mg qam -Triamcinolone .1% ointment for additional anti-inflammatory benefit for erythematous rash #Diabetes Mellitus -Insulin sliding scale -D5 1/2 NS at 75 cc/hr; concern for patient not eating by own, informed nurses/ family to encourage patient to intake food; discontinued fluids as patient tolerating PO intake #Chronic medical conditions -Continue home meds DVT PPX IV access Heart Healthy Diet Full code Problem List: 1. Decubitus ulcers 2. Fungal infection 3. Pressure injury of right foot, stage 4 Pain Ratin Pain Location: back pain Pain Goal: Pain 7 or less Pain Plan: prn pain meds Tomorrow's Labs & Rationales: routine Consulting Request: Consulting Specialty: Infectious Disease Consulting Physician: Dr. Lacey Reason for Consult: Fungal rash, upper & lower back
--- NOTE | 2017-11-07 12:27 | PN- Infect Dx ---
Subjective Subjective: Afebrile. He continues to complain of low back pain. Objective Last 24 Hrs of Vital Signs/I&O Vital Signs Date Time Temp Pulse Resp B/P B/P Pulse O2 O2 Flow FiO2 Mean Ox Delivery Rate 11/07 1057 Room Air 11/07 0817 Room Air 11/07 0800 97 Room Air 11/07 0626 98.2 71 20 130/67 96 Room Air 11/06 2100 98.1 74 16 108/64 95 Room Air 11/06 1600 Room Air 11/06 1458 97.4 71 18 116/68 100 Room Air Intake & Output 11/07 1600 11/07 0800 11/07 0000 Intake Total 660 Output Total Balance 660 Intake, IV 600 Intake, Oral 60 Physical Exam Other Physical Findings: He appears comfortable in no acute distress Skin candidal rash persists but improved Extremities left hip wound status post removal of the eschar, with mild surrounding induration and erythema, nontender to palpation Results Last 24 Hours of Lab Results: Laboratory Tests 11/05 0655 Chemistry Total Bilirubin (0.2 - 1.3 mg/dL) 0.2 Direct Bilirubin (< 0.4 mg/dL) 0.2 AST (17 - 59 U/L) 19 ALT (21 - 72 U/L) 33 Alkaline Phosphatase (< 127 U/L) 77 Total Protein (6.3 - 8.2 g/dL) 4.4 L Albumin (3.5 - 5.0 g/dL) 1.9 L Last 24 Hours of Jerel Results: No recent cultures Assessment/Plan ID Impression: Stable, with temperatures and white blood cell count remaining normal, on Fluconazole, now Day 4 for presumed candidiasis of the back, which did appear to be improving gradually on Nystatin. His left hip necrotic eschar was unroofed 3 days ago with persistence of the mild surrounding inflammation. Suggestion: 1. Discontinue the Nystatin powder 2. Continue Fluconazole for 1 week
[2017-11-07 15:40] VITALS: BP 98/48
[2017-11-07 21:43] VITALS: BP 128/54
--- NOTE | 2017-11-08 07:01 | PN- Housestaff ---
See Addendum Subjective Follow-up For: Decubitus ulcer, left-sided Lower Extremity Fungal rash, continuous upper & lower back Pressure injury of Right Foot, Stage 4 Subjective: Afebrile overnight. Patient is awake and sitting in bed. Patient reports intermittent back pain that has been present chronically. Patient, nevertheless, mentions he has been eating fine and slept well for the most part. Patient's fungal rash on his back is improving and his left lower extremity decubitus ulcer is in the process of healing. Patient otherwise denies any diarrhea, fevers, chills, fatigue, chest pain, and shortness of breath. Review of Systems Constitutional: Reports: see HPI. Objective Last 24 Hrs of Vital Signs/I&O Vital Signs Date Time Temp Pulse Resp B/P B/P Pulse O2 O2 Flow FiO2 Mean Ox Delivery Rate 11/08 0724 98.0 62 19 129/69 97 11/08 0000 Room Air 11/07 2143 98.3 65 19 128/54 100 Room Air 11/07 1540 98.1 65 20 98/48 99 Room Air Intake & Output 11/08 1600 11/08 0800 11/08 0000 Intake Total 600 360 720 Output Total Balance 600 360 720 Intake, Oral 600 360 720 Number 2 Bowel Movements Physical Exam General Appearance: Alert, Cooperative, No Acute Distress Skin: erythematous rash on back; left hip decubitus ulcer; right foot stage 4 pressure injury HEENT: Atraumatic Neck: Supple, No JVD Cardiovascular: Regular Rate, Normal S1, Normal S2 Lungs: Clear to Auscultation Neurological: limited movement at baseline, dementia Assessment/Plan Assessment: XRY-FOOT COMPLETE, R; XRY-HIP 2-3 VIEWS, LEFT - 1. Plain film assessment is very limited for ruling out osteomyelitis in this patient given the extensive underlying osteopenia and associated degenerative changes and in the case of the left hip the associated post traumatic and post treatment changes. No definite plain film evidence of osteomyelitis is seen in the left hip or the right foot. Depending on degree of clinical concern, consider further assessment with MRI scan. 2. 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 Findings may be related to prior fracture deformity and secondary degenerative change. 3. Prominent degenerative changes throughout the foot. Shimon Mcallister is a 87yo M w/ PMH of chronic bedsores, dementia, hx of CVA in 2000, T2DM, HFrEF presented to ER BIBA from home w/ cc of increasing back pain 2 /2 chronic bedsore. Recently admitted for same issues and completed antibiotic treatment. Had mild leukocytosis without fevers; ESR is elevated but decreased from previous admission (103 in September; 87 today) without MRI on last admission. Problem list/Assessment/Hospital Course: #Chronic decubitus ulcers/cellulitis? 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 Nystatin applied 4 times daily with frequent turning; if no improvement consider oral antifungal treatment; Discontinued Nystatin, continue Fluconazole 200 mg PO for 1 week (currently Day 5 of treatment, started 11/04 and stop on 11/10) -ESR 87 on 10/31 (previously 103 10/11) -Left Hip X-ray & Right Foot X-ray to r/o osteomyelitis; no definite evidence of osteomyelitis seen on either film exam of the left hip and right foot -Clinitron mattress to promote proper healing of overlying skin and minimize tissue breakdown -F/u cultures: no growth currently -Wound Care Assessment: Red erthematous rash on the upper and lower back with satellite lesions and multiple areas of skin breakdown; right shoulder unstageable pressure injury; right lateral foot stage 4 pressure injury with exposed tendon: sharp excisional debridgement of about half of necrotic tissue however stopped due to patient c/o discomfort; right femoral area stage 1 pressure injury; right hip evolving DTI with dark purple discoloration at center with friable tissue; left hip unstageable pressure injury with associated peripheral erythema and moist black/sanchez eschar at center with foul odor - concern for developing osteomyelitis in setting of elevated ESR -Surgical evaluation, scheduled for I&D -Speech/swallow evaluation; continue with puree and thin liquids -PT evaluation; short term goals outlined as bed mobility with assist of 2, transfer/balance training, and initation of excercises/stretching -Social Service consult #Fungal infection (satellite lesions, erythematous plaque on back) -Nystatin powder 4 times daily application; discontinued -Frequent turning of patient to prevent further complications of ulcer/rash -Oral Fluconazole 200 mg qam, continue for one week -Triamcinolone .1% ointment for additional anti-inflammatory benefit for erythematous rash #Diabetes Mellitus -Insulin sliding scale -D5 1/2 NS at 75 cc/hr; concern for patient not eating by own, informed nurses/ family to encourage patient to intake food; discontinued fluids as patient tolerating PO intake #Chronic medical conditions -Continue home meds DVT PPX IV access Heart Healthy Diet Full code Problem List: 1. Decubitus ulcers 2. Fungal infection 3. Pressure injury of right foot, stage 4 Pain Ratin Pain Location: back pain Pain Goal: Pain 7 or less Pain Plan: prn pain meds Tomorrow's Labs & Rationales: routine Consulting Request: Consulting Specialty: Infectious Disease Consulting Physician: Dr. Lacey Reason for Consult: Fungal rash, upper & lower back
[2017-11-08 07:24] VITALS: BP 129/69
[2017-11-08 15:26] VITALS: BP 114/61
[2017-11-08 21:17] VITALS: BP 132/72
[2017-11-09 06:30] VITALS: BP 116/45
--- NOTE | 2017-11-09 07:52 | PN- Housestaff ---
See Addendum Subjective Follow-up For: Decubitus ulcer, left-sided Lower Extremity Fungal rash, continuous upper & lower back Pressure injury of Right Foot, Stage 4 Subjective: Afebrile overnight. No acute events overnight. Patient is seen and examined in bed. Patient this morning is asleep in bed. Patient reported to nurse a 6 out of 10 back pain this morning and his fingerstick glucose has been adequate in the 100-125 range over the past 12 hours. Patient otherwise is doing well and we are currently in the process of looking for adequate placement/rehab for the patient. Review of Systems Constitutional: Reports: see HPI. Objective Last 24 Hrs of Vital Signs/I&O Vital Signs Date Time Temp Pulse Resp B/P B/P Pulse O2 O2 Flow FiO2 Mean Ox Delivery Rate 11/09 0630 98.4 64 20 116/45 95 Room Air 11/08 2117 98.1 68 20 132/72 96 Room Air 11/08 1526 98.0 60 18 114/61 100 Room Air Intake & Output 11/09 1600 11/09 0800 11/09 0000 Intake Total 120 600 Output Total Balance 120 600 Intake, Oral 120 600 Number 3 Bowel Movements Physical Exam General Appearance: Alert, No Acute Distress Skin: erythematous rash on back; left hip decubitus ulcer; right foot stage 4 pressure injury HEENT: Atraumatic Neck: Supple, No JVD Cardiovascular: Regular Rate, Normal S1, Normal S2 Lungs: Clear to Auscultation Neurological: limited movement at baseline, dementia Assessment/Plan Assessment: XRY-FOOT COMPLETE, R; XRY-HIP 2-3 VIEWS, LEFT - 1. Plain film assessment is very limited for ruling out osteomyelitis in this patient given the extensive underlying osteopenia and associated degenerative changes and in the case of the left hip the associated post traumatic and post treatment changes. No definite plain film evidence of osteomyelitis is seen in the left hip or the right foot. Depending on degree of clinical concern, consider further assessment with MRI scan. 2. 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 Findings may be related to prior fracture deformity and secondary degenerative change. 3. Prominent degenerative changes throughout the foot. Shimon Mcallister is a 87yo M w/ PMH of chronic bedsores, dementia, hx of CVA in 2000, T2DM, HFrEF presented to ER BIBA from home w/ cc of increasing back pain 2 /2 chronic bedsore. Recently admitted for same issues and completed antibiotic treatment. Had mild leukocytosis without fevers; ESR is elevated but decreased from previous admission (103 in September; 87 today) without MRI on last admission. Problem list/Assessment/Hospital Course: #Chronic decubitus ulcers/cellulitis? 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 Nystatin applied 4 times daily with frequent turning; if no improvement consider oral antifungal treatment; Discontinued Nystatin, continue Fluconazole 200 mg PO for 1 week (currently Day 5 of treatment, started 11/04 and stop on 11/10) -ESR 87 on 10/31 (previously 103 10/11) -Left Hip X-ray & Right Foot X-ray to r/o osteomyelitis; no definite evidence of osteomyelitis seen on either film exam of the left hip and right foot -Clinitron mattress to promote proper healing of overlying skin and minimize tissue breakdown -F/u cultures: no growth currently -Wound Care Assessment: Red erthematous rash on the upper and lower back with satellite lesions and multiple areas of skin breakdown; right shoulder unstageable pressure injury; right lateral foot stage 4 pressure injury with exposed tendon: sharp excisional debridgement of about half of necrotic tissue however stopped due to patient c/o discomfort; right femoral area stage 1 pressure injury; right hip evolving DTI with dark purple discoloration at center with friable tissue; left hip unstageable pressure injury with associated peripheral erythema and moist black/sanchez eschar at center with foul odor - concern for developing osteomyelitis in setting of elevated ESR -Surgical evaluation, completed I&D of left lateral femoral decubitus ulcer -Speech/swallow evaluation; continue with puree and thin liquids -PT evaluation; short term goals outlined as bed mobility with assist of 2, transfer/balance training, and initation of excercises/stretching -Social Service consult #Fungal infection (satellite lesions, erythematous plaque on back) -Nystatin powder 4 times daily application; discontinued -Frequent turning of patient to prevent further complications of ulcer/rash -Oral Fluconazole 200 mg qam, continue for one week -Triamcinolone .1% ointment for additional anti-inflammatory benefit for erythematous rash #Diabetes Mellitus -Insulin sliding scale -D5 1/2 NS at 75 cc/hr; concern for patient not eating by own, informed nurses/ family to encourage patient to intake food; discontinued fluids as patient tolerating PO intake #Chronic medical conditions -Continue home meds DVT PPX IV access Heart Healthy Diet Full code Problem List: 1. Decubitus ulcers 2. Fungal infection 3. Pressure injury of right foot, stage 4 Pain Ratin Pain Location: back pain Pain Goal: Pain 7 or less Pain Plan: prn pain meds Tomorrow's Labs & Rationales: NA Consulting Request: Consulting Specialty: Infectious Disease Consulting Physician: Dr. Lacey Reason for Consult: Fungal rash, upper & lower back
[2017-11-09 11:55] VITALS: BP 116/45
--- NOTE | 2017-11-09 12:11 | PN- Infect Dx ---
Subjective Subjective: Afebrile. He continues to complain of back pain. Objective Last 24 Hrs of Vital Signs/I&O Vital Signs Date Time Temp Pulse Resp B/P B/P Pulse O2 O2 Flow FiO2 Mean Ox Delivery Rate 11/09 1155 98.4 64 20 116/45 11/09 0630 98.4 64 20 116/45 95 Room Air 11/08 2117 98.1 68 20 132/72 96 Room Air 11/08 1526 98.0 60 18 114/61 100 Room Air Intake & Output 11/09 1600 11/09 0800 11/09 0000 Intake Total 120 600 Output Total Balance 120 600 Intake, Oral 120 600 Number 3 Bowel Movements Physical Exam Other Physical Findings: He appears comfortable in no acute distress Skin candidal rash improved though persists Exam is otherwise unchanged Results Last 24 Hours of Lab Results: No recent labs Last 24 Hours of Jerel Results: No recent cultures Assessment/Plan ID Impression: Stable, with temperatures and white blood cell count remaining normal, on Fluconazole, now Day 6 of treatment for presumed candidiasis of the back. His back pain is apparently chronic, with no plans for further evaluation. Suggestion: 1. Continue Fluconazole until November 10, at which point can discontinue and follow off antibiotics
[2017-11-09 14:07] VITALS: BP 124/62
[2017-11-09] MEDS ORDERED: SENNA PLUS TAB1 EACH PO (16:25)
[2017-11-09] MEDS ORDERED: DIFLUCAN100 M1 PO (16:25)
[2017-11-09] MEDS ORDERED: MIRALAX119 GM PO (16:25)
[2017-11-09] MEDS ORDERED: TRIAMCINOLONE A15 G3 TOP (16:25)
[2017-11-09] MEDS ORDERED: SANTYL30 GM TOP (16:25)
[2017-11-09] MEDS ORDERED: HYDROCODON-ACE1 EAC2 PO (16:25)
[2017-11-09] MEDS ORDERED: VITAMIN A & D56.7 GM TOP (16:25)
[2017-11-09] MEDS ORDERED: DESITIN DIAPER28 GM TOP (16:25)
--- NOTE | 2017-11-09 16:34 | Discharge Summary ---
Visit Information Visit Dates Admission Date: 10/31/17 Discharge Date: 11/10/17 Hospital Course Course Attending Physician: Tico Gloria MD Primary Care Physician: Fermín SMITH,Mo Serna Consulting Request: Consulting Specialty: Infectious Disease Consulting Physician: Dr. Lacey Reason for Consult: Fungal rash, upper & lower back Hospital Course: Patient is an 87 yo M with history of dementia, CVA, DM, GI bleed from esophageal ulcer, spinal stenosis, chronic pressure ulcer in mid thoracic back ( superficial) and left sacral area (stage 2-3), presents with generalized weakness and increased low back pain. Patient was admitted 10/10-10/13/17 for cellulitis on his back. He was treated with Unasyn and discharged on Augmentin which was finished on 10/17. Patient has no fever at home. According to his , the left sacral ulcer has worsen. In the ED, patient is afebrile. WBC 11.8 (6.2 on 10/12/17). ESR 87 (103 on ). UA negative nitrite and esterase. Whole back has erythema likely from Madhavi. Left sacral decub dressing intact and clean with no drainage with erythema and concern for cellulitis. Patient was admitted to the general medical floor for management: 1. Diffuse fungal rash on back with eczema 2. Chronic decubitus ulcer of left hip s/p debridement 3. Hyponatremia 4. Chronic right foot ulcer 5. Chronic conditions: Dementia, CVA, DM, Spinal Stenosis Patient was admitted for initial concern of cellulitis of his back. He was evaluated by ID and Dermatology and was diagnosed with a fungal rash. Patient was started on nystatin powder and diflucan. There appeared to be a component of eczyma for which he was started on a steroid cream. Patient's rash improved prior to discharge. Patient also was seen by general surgery for a hip ulcer which was debrided at bedside and dressed with enzymatic ointment and followed by wound care for his right foot ulcer. Patient worked with physical therapy prior to discharge to [facility]. His back pain was controlled with vicodin and IV tylenol. - follow up with Dr. Sibley and Wound Care - follow up with Dr. Smith (dermatology) for eczema Allergies: Coded Allergies: NO KNOWN ALLERGIES (10/27/14) Significant Procedures: Minor Surgical Procedure Note Date of Procedure: 11/04/17 Procedure Note: Preop- Left hip decubitus ulcer Postop-same Procedure- Sharp scalpel debridement of decubitus ulcer Attending -Maryjo Cox in his bed, positioned right lateral then left hip decubitus and surrounding area was prepped and draped in usual sterile fashion-then using a scalpel a full -thickness debridement was done to remove the central necrotic skin and subcutaneous fat down to fascia and the bleeding edge there were 2 spots adjacent patient was awake during the procedure and tolerated it well, area was insensate. Area was checked for hemostasis then covered with gauze and tape. The area excised was approximately 5 x 4 cm total. Recommend continue daily wound care and with enzymatic debridement ointment. Pertinent Lab Results: SERVICE DATE: 11/02/17- EXAM TYPE: RAD - XRY-FOOT COMPLETE, R; XRY-HIP 2-3 VIEWS, LEFT EXAMINATION: CR RIGHT FOOT. CR LEFT HIP. CLINICAL INFORMATION: History of pressure ulcers. Rule out osteomyelitis. Decubitus ulcer left hip. Rule out osteomyelitis. COMPARISON: Left hip films dated 08/23/2013. CT scan of the abdomen and pelvis dated 07/29/2015. TECHNIQUE: Frontal and frog-leg lateral views of the left hip performed on 4 images. FINDINGS: Left hip: Again seen is a compression screw in the left hip transfixing an old subtrochanteric fracture. Varus angulation is noted. The femoral head remains located within the acetabulum. Prominent protrusio acetabular deformity is noted and there is moderately severe degenerative change seen with superior joint space narrowing, spurring and cystic changes noted. The medial acetabular margin is indistinct in region of previously demonstrated acetabular fracture. The previously seen left inferior pubic ramus fracture has healed. There is extensive lucency seen throughout the left femoral head, neck and trochanteric region as well as in the acetabular roof. These findings are similar to the previous exam, though evaluation for subtle superimposed new lytic lesion is limited. Extensive arterial vascular calcifications are seen. Multiple calcified granulomas are seen in the soft tissues lateral to the greater trochanter. Right foot: There is marked osteopenia with significant bone demineralization noted, leading to a model appearance of the bone marrow. No definite superimposed focal lytic or destructive bone lesion is seen to suspect osteomyelitis. Flexion deformities with degenerative changes are seen at the interphalangeal joints of all digits. There is moderate degenerative change also at the intertarsal and tarsometatarsal joints and at the first metatarsophalangeal joint. Extensive arteriovascular calcifications is seen. No ankle joint effusion is noted. No acute fracture or dislocation is seen. IMPRESSION: 1. Plain film assessment is very limited for ruling out osteomyelitis in this patient given the extensive underlying osteopenia and associated degenerative changes and in the case of the left hip the associated post traumatic and post treatment changes. No definite plain film evidence of osteomyelitis is seen in the left hip or the right foot. Depending on degree of clinical concern, consider further assessment with MRI scan. 2. 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 Findings may be related to prior fracture deformity and secondary degenerative change. 3. Prominent degenerative changes throughout the foot. Disposition Summary Disposition Principal Diagnosis: Diffuse fungal rash on back with eczema Additional Diagnosis: Chronic decubitus ulcer of left hip s/p debridement, Hyponatremia, Chronic right foot ulcer, H/O Dementia, H/O CVA, H/O DM, H/O Spinal Stenosis Discharge Disposition: SNF Discharge Instructions General Discharge Information Code Status: Full Code Patient's Diet: Consistent Carbohydrate Patient's Activity: Total Lift, Mechanical Lift Follow-Up Instructions/Appts: 1. Follow up with Dr. Carbajal 2. Follow up with [facility] 3. Follow up with Dr. Canales Medications at Discharge Discharge Medications: Stop taking the following medications: Lidocaine (Lidoderm) 5 % ADH..PATCH On the skin DAILY as needed for Back Pain Qty = 30 Hydrocodone/Acetaminophen (Hydrocodon-Acetaminoph 7.5-325) 7.5 MG-325 MG TABLET ORAL THREE TIMES A DAY NEEDED as needed for PAIN Qty = 60 Amoxicillin/Clavulanate Potass (Amox-Clav 875-125 MG Tablet) 875 MG-125 MG TABLET ORAL TWICE DAILY Qty = 8 Continue taking these medications: Metformin HCl (Metformin HCl) 500 MG TABLET 1 Tablet ORAL TWICE DAILY Comments: NOT GIVEN IN HOSPITAL Pantoprazole Sodium (Pantoprazole Sodium) 40 MG TABLET.DR 1 Tablet ORAL TWICE DAILY Qty = 90 Comments: NOT GIVEN IN HOSPITAL Cyanocobalamin (Vitamin B-12) 1,000 MCG TABLET 1 Tablet ORAL DAILY Comments: NOT GIVEN IN HOSPITAL Melatonin (Melatonin) 5 MG CAPSULE 1 Tablet ORAL DAILY as needed for Insomnia Qty = 30 Comments: Last Taken: 11/09/17 Time: 10:00 PM Acetaminophen (Tylenol Arthritis) 650 MG TABLET.ER 1 Tablet ORAL EVERY 4-6 HOURS NEEDED as needed for Pain Qty = 30 Comments: Last Taken: 11/02/17 Time: 7:30 PM Start taking the following new medications: Hydrocodone/Acetaminophen (Hydrocodon-Acetaminophen 5-325) 5 MG-325 MG TABLET 1 Tablet ORAL EVERY 4 HOURS NEEDED as needed for back pain Qty = 30 No Refills Comments: Last Taken: 11/10/17 Time: 9:00 AM Polyethylene Glycol 3350 (Miralax) 17 GRAM/DOSE POWDER 17 Gram ORAL DAILY Qty = 30 No Refills Comments: Last Taken: 11/10/17 Time: 9:00 AM Sennosides/Docusate Sodium (Senna Plus Tablet) 8.6 MG-50 MG TABLET 1 Tablet ORAL TWICE DAILY as needed for CONSTIPATION Qty = 30 No Refills Comments: Last Taken: 11/10/17 Time: 9:00 AM Triamcinolone Acetonide (Triamcinolone Acetonide) 0.1 % OINT...G. 1 Application On the skin TWICE DAILY Qty = 1 No Refills Comments: Last Taken: 11/10/17 Time: 8:30 AM Vitamin A & D (Vitamin A & D Ointment) 56.7 GM OINT...G. 1 Application On the skin TWICE DAILY Qty = 1 No Refills Comments: Last Taken: 11/10/17 Time: 8:30 AM Cod Liver Oil/Zinc Oxide (Desitin Diaper Rash 40% Paste) 40 % PASTE..G. 1 Application On the skin TWICE DAILY Qty = 1 No Refills Comments: Last Taken: 11/10/17 Time: 9:00 AM Collagenase Clostridium Hist. (Santyl) 250 UNIT/GRAM OINT...G. 1 Application On the skin DAILY NEEDED as needed for ULCER Qty = 1 No Refills Comments: Last Taken: 11/09/17 Time: 8:30 AM Copies To: Fermín SMITH,Mo Serna Attending MD Review Statement Documenting Attending: Tico Gloria MD Other Findings: The patient was seen and agree with the above summary. The patient will go to [facility] and continue wound care. Note, he has chronic pain and is on chronic narcotics.
[2017-11-09 22:02] VITALS: BP 150/66
[2017-11-10 07:18] VITALS: BP 140/60
--- NOTE | 2017-11-10 07:52 | PN- Housestaff ---
See Addendum Subjective Follow-up For: Decubitus ulcer, left-sided Lower Extremity Fungal rash, continuous upper & lower back Pressure injury of Right Foot, Stage 4 Subjective: Afebrile overnight. No acute events overnight. Patient is seen and examined in bed. Patient this morning is asleep in bed. Patient reported to nurse a 6 out of 10 back pain this morning and his fingerstick glucose has been adequate in the 128-136 range over the past few hours. Patient otherwise is doing well and we are currently in the process of looking for adequate placement/rehab for the patient, pending insurance verification. Review of Systems Constitutional: Reports: see HPI. Objective Last 24 Hrs of Vital Signs/I&O Vital Signs Date Time Temp Pulse Resp B/P B/P Pulse O2 O2 Flow FiO2 Mean Ox Delivery Rate 11/10 0718 58.0 93 20 140/60 93 11/09 2202 97.7 73 150/66 98 Room Air 11/09 1407 97.4 60 20 124/62 94 Room Air 11/09 1155 98.4 64 20 116/45 Intake & Output 11/10 0800 11/10 0000 11/09 1600 Intake Total 310 600 Output Total Balance 310 600 Intake, IV 10 Intake, Oral 300 600 Number 0 1 Bowel Movements Physical Exam General Appearance: Alert, No Acute Distress Skin: erythematous rash on back; left hip decubitus ulcer; right foot stage 4 pressure injury HEENT: Atraumatic Neck: Supple, No JVD Cardiovascular: Regular Rate, Normal S1, Normal S2 Lungs: Clear to Auscultation Extremities: No Edema Assessment/Plan Assessment: XRY-FOOT COMPLETE, R; XRY-HIP 2-3 VIEWS, LEFT - 1. Plain film assessment is very limited for ruling out osteomyelitis in this patient given the extensive underlying osteopenia and associated degenerative changes and in the case of the left hip the associated post traumatic and post treatment changes. No definite plain film evidence of osteomyelitis is seen in the left hip or the right foot. Depending on degree of clinical concern, consider further assessment with MRI scan. 2. 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 Findings may be related to prior fracture deformity and secondary degenerative change. 3. Prominent degenerative changes throughout the foot. Shimon Mcallister is a 87yo M w/ PMH of chronic bedsores, dementia, hx of CVA in 2000, T2DM, HFrEF presented to ER BIBA from home w/ cc of increasing back pain 2 /2 chronic bedsore. Recently admitted for same issues and completed antibiotic treatment. Had mild leukocytosis without fevers; ESR is elevated but decreased from previous admission (103 in September; 87 today) without MRI on last admission. Problem list/Assessment/Hospital Course: #Chronic decubitus ulcers/cellulitis? 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 Nystatin applied 4 times daily with frequent turning; if no improvement consider oral antifungal treatment; Discontinued Nystatin, continue Fluconazole 200 mg PO for 1 week (currently Day 7 of treatment, started 11/04 and stopped on 11/10) -ESR 87 on 10/31 (previously 103 10/11) -Left Hip X-ray & Right Foot X-ray to r/o osteomyelitis; no definite evidence of osteomyelitis seen on either film exam of the left hip and right foot -Clinitron mattress to promote proper healing of overlying skin and minimize tissue breakdown -F/u cultures: no growth currently -Wound Care Assessment: Red erthematous rash on the upper and lower back with satellite lesions and multiple areas of skin breakdown; right shoulder unstageable pressure injury; right lateral foot stage 4 pressure injury with exposed tendon: sharp excisional debridgement of about half of necrotic tissue however stopped due to patient c/o discomfort; right femoral area stage 1 pressure injury; right hip evolving DTI with dark purple discoloration at center with friable tissue; left hip unstageable pressure injury with associated peripheral erythema and moist black/sanchez eschar at center with foul odor - concern for developing osteomyelitis in setting of elevated ESR -Surgical evaluation, completed I&D of left lateral femoral decubitus ulcer -Speech/swallow evaluation; continue with puree and thin liquids -PT evaluation; short term goals outlined as bed mobility with assist of 2, transfer/balance training, and initation of excercises/stretching #Fungal infection (satellite lesions, erythematous plaque on back) -Nystatin powder 4 times daily application; discontinued -Frequent turning of patient to prevent further complications of ulcer/rash -Oral Fluconazole 200 mg qam, continue for one week -Triamcinolone .1% ointment for additional anti-inflammatory benefit for erythematous rash #Diabetes Mellitus -Insulin sliding scale -D5 1/2 NS at 75 cc/hr; concern for patient not eating by own, informed nurses/ family to encourage patient to intake food; discontinued fluids as patient tolerating PO intake #Chronic medical conditions -Continue home meds DVT PPX IV access Heart Healthy Diet Full code Problem List: 1. Decubitus ulcers 2. Fungal infection 3. Pressure injury of right foot, stage 4 Pain Ratin Pain Location: back pain Pain Goal: Pain 7 or less Pain Plan: prn pain meds Tomorrow's Labs & Rationales: routine Consulting Request: Consulting Specialty: Infectious Disease Consulting Physician: Dr. Lacey Reason for Consult: Fungal rash, upper & lower back
[2017-11-10 11:01] VITALS: BP 116/45
== END 2017-11-10 14:33 | DRG 570 ==
LOC: ERH 18:55 → 2NB 23:06 → ERHI 23:06 → ENRESERV 11-01 12:37 → ENTRNSPT 11-01 13:14 → EDTRNSPTSTS 11-01 13:16 → CMPTRNSPT 11-01 13:39 → 2NB 11-01 13:42
PROVIDERS: Physician Assistant
PROC: 0JBQ0ZZ Excision of Right Foot Subcutaneous Tissue and Fascia, Open Approach (ICD-10-PCS; principal; 2017-11-01)
PROC: 0JBM0ZZ Excision of Left Upper Leg Subcutaneous Tissue and Fascia, Open Approach (ICD-10-PCS; 2017-11-04)
DX: L89.894 Pressure ulcer of other site, stage 4 (principal); E87.1 Hypo-osmolality and hyponatremia; I50.22 Chronic systolic (congestive) heart failure; E46 Unspecified protein-calorie malnutrition; Z68.1 Body mass index [BMI] 19.9 or less, adult; L89.110 Pressure ulcer of right upper back, unstageable; F03.90 Unspecified dementia, unspecified severity, without behavioral disturbance, psychotic disturbance, mood disturbance, and anxiety; M19.90 Unspecified osteoarthritis, unspecified site; Z86.73 Personal history of transient ischemic attack (TIA), and cerebral infarction without residual deficits; E11.42 Type 2 diabetes mellitus with diabetic polyneuropathy; Z79.84 Long term (current) use of oral hypoglycemic drugs; E86.0 Dehydration; B37.2 Candidiasis of skin and nail; L89.100 Pressure ulcer of unspecified part of back, unstageable; L89.220 Pressure ulcer of left hip, unstageable; L89.41 Pressure ulcer of contiguous site of back, buttock and hip, stage 1; L89.210 Pressure ulcer of right hip, unstageable; L30.9 Dermatitis, unspecified; M54.5 Low back pain
CPT/HCPCS: 2NBP; ERO; 36592; 73502-LT; 73630-RT; 81003; 82436; 87040; 93005; 93010; 97110-GO; 97162-GP; 97530-GO; J0131; J1650; J7042